=== PATIENT | male | born 1975 | race Native Hawaiian/Other Pacific Islander ===

== ENCOUNTER 2017-06-09 21:36 | Inpatient (IN) | payer BC ==
[2017-06-09] MEDS ORDERED: SODIUM CHLORIDE 0.9% 1,000 ML IV STA (22:03)
[2017-06-09] MEDS ORDERED: ONDANSETRON 4 MG/2 ML VIAL IVP STA (22:03)
[2017-06-09] MEDS ORDERED: ACETAMINOPHEN TAB 500 MG TAB PO STA (22:03)
[2017-06-09] MEDS ORDERED: MORPHINE SULFATE 4 MG/ML SYRINGE IV STA (22:03)
[2017-06-09] MEDS ORDERED: MORPHINE SULFATE/PF 10MG/10ML VL IVP STA (22:09)
--- NOTE | 2017-06-09 22:17 | ED ---
General Adult HPI <Matthieu Woo - Last Filed: 06/10/17 00:27> - General Source: patient, RN notes reviewed Mode of arrival: wheelchair Limitations: no limitations <Juanita Reyes - Last Filed: 06/10/17 00:30> - General Chief complaint: Abdominal Pain Stated complaint: Abd pain Time Seen by Provider: 06/09/17 21:47 - History of Present Illness Initial comments: 41-year-old male presents to the emergency department with a chief complaint of abdominal pain. This pain started about a week ago. He is scheduled to have an ultrasound done today. He went for ultrasound. He went home he developed low fever his abdominal pain seemed to have worsened. He denies any nausea or vomiting. He denies any changes in bowel or bladder habits. He denies any surgeries on the abdomen the past. They state they're concerned due to the fever and the worsening abdominal pain so they thought that they should be seen. Patient denies any recent shortness of breath, chest pain, back pain, nausea vomiting, numbness or tingling, dysuria or hematuria, constipation or diarrhea, headaches or visual changes, or any other current symptoms. (Juanita Reyes) - Related Data Home Medications Medication Instructions Recorded Confirmed Ibuprofen [Motrin] 800 mg PO Q8H PRN 06/09/17 06/09/17 Allergies Allergy/AdvReac Type Severity Reaction Status Date / Time No Known Allergies Allergy Verified 06/09/17 21:52 Review of Systems ROS Other: All systems not noted in ROS Statement are negative. <Matthieu Woo - Last Filed: 06/10/17 00:27> ROS Other: All systems not noted in ROS Statement are negative. <Juanita Reyes - Last Filed: 06/10/17 00:30> ROS Statement: Those systems with pertinent positive or pertinent negative responses have been documented in the HPI. Past Medical History Past Medical History: No Reported History History of Any Multi-Drug Resistant Organisms: None Reported Past Surgical History: No Surgical Hx Reported Past Psychological History: No Psychological Hx Reported Smoking Status: Current every day smoker Past Alcohol Use History: Occasional Past Drug Use History: None Reported <Juanita Reyes - Last Filed: 06/10/17 00:30> General Exam <Matthieu Woo - Last Filed: 06/10/17 00:27> Limitations: no limitations <Juanita Reyes - Last Filed: 06/10/17 00:30> - General Exam Comments Initial Comments: General: The patient is awake and alert, in no distress, and does not appear acutely ill. Eye: Pupils are equal, round and reactive to light, extra-ocular movements are intact; there is normal conjunctiva bilaterally. No signs of icterus. Ears, nose, mouth and throat: There are moist mucous membranes and no oral lesions. Neck: The neck is supple, there is no tenderness. Cardiovascular: There is a regular rate and rhythm. No murmur, rub or gallop is appreciated. Respiratory: Lungs are clear to auscultation, respirations are non-labored, breath sounds are equal. No wheezes, stridor, rales, or rhonchi. Gastrointestinal: Soft, non-distended, right upper quadrant tenderness with some diffuse tenderness of the abdomen without masses or organomegaly noted. There is no rebound or guarding present. No CVA tenderness. Bowel sounds are unremarkable. Back: There is no tenderness to palpation in the midline. There is no obvious deformity. No rashes noted. Musculoskeletal: Normal ROM, notenderness, There is no pedal edema. There is no calf tenderness or swelling. Sensation intact. Pulses equal bilaterally 2+. Neurological: CN II-XII intact, There are no obvious motor or sensory deficits. Coordination appears grossly intact. Speech is normal. Skin: Skin is warm and dry and no rashes or lesions are noted. Psychiatric: Cooperative, appropriate mood & affect, normal judgment. (Juanita Reyes) Course <Matthieu Woo - Last Filed: 06/10/17 00:27> <Juanita Reyes - Last Filed: 06/10/17 00:30> Vital Signs 06/09/17 06/10/17 21:42 00:01 Temperature 100.6 F H 100.3 F H Pulse Rate 113 H 111 H Respiratory 20 18 Rate Blood Pressure 196/83 121/59 O2 Sat by Pulse 98 97 Oximetry - Reevaluation(s) Reevaluation #1: 06/10/17 00:29 At this time patient does meet sepsis criteria. (Juanita Reyes) Medical Decision Making - Lab Data Result diagrams: 06/09/17 22:23 06/09/17 22:23 <AmnaMatthieu Darcie - Last Filed: 06/10/17 00:27> - Lab Data Result diagrams: 06/09/17 22:23 06/09/17 22:23 <Juanita Reyes - Last Filed: 06/10/17 00:30> - Medical Decision Making 41-year-old male with generalized abdominal pain, with tenderness to palpation. Patient is febrile and tachycardic on initial evaluation. CT is obtained, official read pending, however radiologist did call with pelvic abscess, likely from diverticulitis, with intraperitoneal free air. This is discussed with Dr. Kurtz, patient will be placed on IV antibiotics, admitted for further evaluation treatment. (Matthieu Woo) 41-year-old male presents for abdominal pain. This time patient's CAT scan and lab work has been reviewed. At this time we do appear to have an diverticulitis with abscess and concern for perforation. At this time Zosyn was started. This time we will admit to Dr. Kurtz who will evaluate the patient. (Juanita Reyes) - Lab Data Lab Results 06/09/17 06/09/17 06/09/17 Range/Units 22:23 22:23 22:23 WBC 5.8 (3.8-10.6) k/uL RBC 5.12 (4.30-5.90) m/uL Hgb 15.7 (13.0-17.5) gm/dL Hct 43.5 (39.0-53.0) % MCV 84.9 (80.0-100.0) fL MCH 30.6 (25.0-35.0) pg MCHC 36.1 (31.0-37.0) g/dL RDW 13.0 (11.5-15.5) % Plt Count 251 (150-450) k/uL Neutrophils % 82 % Lymphocytes % 11 % Monocytes % 5 % Eosinophils % 1 % Basophils % 0 % Neutrophils # 4.7 (1.3-7.7) k/uL Lymphocytes # 0.6 L (1.0-4.8) k/uL Monocytes # 0.3 (0-1.0) k/uL Eosinophils # 0.1 (0-0.7) k/uL Basophils # 0.0 (0-0.2) k/uL Hyperchromasia Slight Poikilocytosis Slight PT (9.0-12.0) sec INR (<1.2) APTT (22.0-30.0) sec Sodium 149 H (137-145) mmol/L Potassium 3.9 (3.5-5.1) mmol/L Chloride 103 (98-107) mmol/L Carbon Dioxide 23 (22-30) mmol/L Anion Gap 23 mmol/L BUN 16 (9-20) mg/dL Creatinine 0.80 (0.66-1.25) mg/dL Est GFR (CKD-EPI)AfAm >90 (>60 ml/min/1.73 sqM) Est GFR (CKD-EPI)NonAf >90 (>60 ml/min/1.73 sqM) Glucose 171 H (74-99) mg/dL Plasma Lactic Acid Jomar (0.7-2.0) mmol/L Calcium 8.7 (8.4-10.2) mg/dL Total Bilirubin 1.0 (0.2-1.3) mg/dL AST 24 (17-59) U/L ALT 29 (21-72) U/L Alkaline Phosphatase 77 (38-126) U/L Total Protein 6.5 (6.3-8.2) g/dL Albumin 3.4 L (3.5-5.0) g/dL Amylase 30 (30-110) U/L Lipase 39 (23-300) U/L Blood Type B Negative Blood Type Confirm Blood Type Recheck CABO Indicated Antibody Screen NEGATIVE Spec Expiration Date 06/12/2017232206/09/17 06/09/17 06/09/17 Range/Units 22:23 22:23 23:32 WBC (3.8-10.6) k/uL RBC (4.30-5.90) m/uL Hgb (13.0-17.5) gm/dL Hct (39.0-53.0) % MCV (80.0-100.0) fL MCH (25.0-35.0) pg MCHC (31.0-37.0) g/dL RDW (11.5-15.5) % Plt Count (150-450) k/uL Neutrophils % % Lymphocytes % % Monocytes % % Eosinophils % % Basophils % % Neutrophils # (1.3-7.7) k/uL Lymphocytes # (1.0-4.8) k/uL Monocytes # (0-1.0) k/uL Eosinophils # (0-0.7) k/uL Basophils # (0-0.2) k/uL Hyperchromasia Poikilocytosis PT 10.8 (9.0-12.0) sec INR 1.1 (<1.2) APTT 25.4 (22.0-30.0) sec Sodium (137-145) mmol/L Potassium (3.5-5.1) mmol/L Chloride (98-107) mmol/L Carbon Dioxide (22-30) mmol/L Anion Gap mmol/L BUN (9-20) mg/dL Creatinine (0.66-1.25) mg/dL Est GFR (CKD-EPI)AfAm (>60 ml/min/1.73 sqM) Est GFR (CKD-EPI)NonAf (>60 ml/min/1.73 sqM) Glucose (74-99) mg/dL Plasma Lactic Acid Jomar 1.9 (0.7-2.0) mmol/L Calcium (8.4-10.2) mg/dL Total Bilirubin (0.2-1.3) mg/dL AST (17-59) U/L ALT (21-72) U/L Alkaline Phosphatase (38-126) U/L Total Protein (6.3-8.2) g/dL Albumin (3.5-5.0) g/dL Amylase (30-110) U/L Lipase (23-300) U/L Blood Type Blood Type Confirm B Negative Blood Type Recheck Antibody Screen Spec Expiration Date Disposition <Matthieu Woo - Last Filed: 06/10/17 00:27> Decision Date: 06/10/17 Decision Time: 00:30 <Juanita Reyes - Last Filed: 06/10/17 00:30> Clinical Impression: Diverticular disease of intestine with perforation and abscess Disposition: ADMITTED IP TO THIS [facility] Condition: Stable Referrals: Isac Gong MD [Primary Care Provider] - 1-2 days
[2017-06-09 22:41] LABS: Basophils % (A) 0 %; Eosinophils # (A) 0.1 k/uL (0-0.7); Eosinophils % (A) 1 %; HCT 43.5 % (39.0-53.0); HGB 15.7 gm/dL (13.0-17.5); Hyperchromasia Slight; Lymphocytes # (A) 0.6 k/uL (1.0-4.8); Lymphocytes % (A) 11 %; MCH 30.6 pg (25.0-35.0); MCHC 36.1 g/dL (31.0-37.0); MCV 84.9 fL (80.0-100.0); Mean Platelet Volume 7.6; Monocytes # (A) 0.3 k/uL (0-1.0); Monocytes % (A) 5 %; Neutrophils # (A) 4.7 k/uL (1.3-7.7); Neutrophils % (A) 82 %; Platelet Count 251 k/uL (150-450); Poikilocytosis Slight; RBC 5.12 m/uL (4.30-5.90); WBC 5.8 k/uL (3.8-10.6)
[2017-06-09 22:50] LABS: ALT 29 U/L (21-72); AST 24 U/L (17-59); Albumin 3.4 g/dL (3.5-5.0); Alkaline Phosphatase 77 U/L (38-126); Amylase 30 U/L (30-110); Anion Gap 23 mmol/L; Blood Urea Nitrogen 16 mg/dL (9-20); Calcium 8.7 mg/dL (8.4-10.2); Carbon Dioxide 23 mmol/L (22-30); Chloride 103 mmol/L (98-107); Glucose 171 mg/dL (74-99); INR 1.1 (<1.2); Lipase 39 U/L (23-300); Partial Thromboplastin Time 25.4 sec (22.0-30.0); Potassium 3.9 mmol/L (3.5-5.1); Prothrombin Time 10.8 sec (9.0-12.0); Sodium 149 mmol/L (137-145); Total Protein 6.5 g/dL (6.3-8.2)
[2017-06-09] MEDS ORDERED: RX INFO: IV CONTRAST WAS GIVEN 1 EACH MISC MISCELLANE PRN (23:14)
[2017-06-09] MEDS ORDERED: fentaNYL (PF) 50 MCG/ML 2 ML AMP IV STA (23:20)
[2017-06-10] MEDS ORDERED: PIPERACILLIN-TAZOBACTAM 3.375 GM in DEXTROSE/WATER 1 50ML.BAG IVPB STA (00:22)
[2017-06-10] MEDS ORDERED: SODIUM CHLORIDE 0.9% 1,000 ML IV STA (00:23)
[2017-06-10] MEDS ORDERED: NALOXONE 0.4 MG/ML 1 ML VIAL IV PRN (00:30)
--- NOTE | 2017-06-10 00:30 | CT ---
EXAMINATION TYPE: CT abdomen pelvis w con DATE OF EXAM: 06/10/2017 COMPARISON: NONE HISTORY: Lower abd pain, RLQ abd pain CT DLP: 2911.90 mGycm Automated exposure control for dose reduction was used. TECHNIQUE: Helical acquisition of images was performed from the lung bases through the pelvis. CONTRAST: Performed without Oral Contrast and with IV Contrast, patient injected with 100 mL of Omnipaque 300. FINDINGS: Lung bases are clear of consolidation. There is no pleural effusion. Heart size is normal. There is n o pericardial effusion. Liver shows no focal defect. Bile ducts are not dilated. Gallbladder appears normal. There is no panc reatic mass. Spleen appears normal. There are extensive inflammatory changes in the pelvis involving the sigmoid colon with fat stranding and wall thickening. There is a small amount of free air in the upper abdomen. A portion of the appe ndix is seen and appears normal. There are some distended loops of small bowel with fluid. This is pr obably due to ileus. These loops measure up to 3.5 cm. The bladder distends smoothly. There is a 5.5 x 2.5 cm complex mass in the pelvis towards the right side adjacent to the sigmoid colon consistent w ith abscess. There is no free fluid in the pelvis. The bony structures are intact. IMPRESSION: EXTENSIVE INFLAMMATORY CHANGES IN THE PELVIS WITH FAT STRANDING WALL THICKENING AND SMALL PNEUMOPERIT ONEUM. FINDINGS PROBABLY RELATE TO ACUTE DIVERTICULITIS WITH PERFORATION. THERE IS A 5.5 X 2.5 CM IRR EGULAR AIR AND FLUID COLLECTION IN THE MID PELVIS TO THE RIGHT OF THE SIGMOID COLON PROBABLY A PERIDI VERTICULAR ABSCESS. Other etiologies such as granulomatous colitis with perforation or other infectio us colitis with perforation are possible. There is mildly dilated fluid-filled small bowel probably secondarily partially obstructed due to the inflammatory changes in the pelvis. This exam was discussed with ER RAMA Grant at 12:20 AM.
[2017-06-10] MEDS: SODIUM CHLORIDE 0.9% 1,000 ML IV SCH ×4 (00:33→22:15)
[2017-06-10] MEDS: MORPHINE SULFATE/PF 10MG/10ML VL IV PRN ×5 (04:18→22:24)
[2017-06-10] MEDS: ACETAMINOPHEN IV (For NPO) 1,000 MG in EMPTY BAG 1 BAG IVPB SCH ×4 (07:17→23:36)
[2017-06-10] MEDS: PIPERACILLIN-TAZOBACTAM 3.375 GM in DEXTROSE/WATER 1 50ML.BAG IVPB SCH ×3 (08:08→23:37)
[2017-06-10] MEDS ORDERED: KETOROLAC 30 MG/ML 1 ML VIAL IVP SCH (12:00)
--- NOTE | 2017-06-10 14:04 | P.GSHP ---
History of Present Illness H&P Date: 06/10/17 41-year-old male presents to the emergency department with complaints of lower abdominal pain for approximately 33 months. He states it was on and off at the beginning of this process and would be bandlike in nature in his lower quadrant. He states that he was evaluated by his primary care physician and an ultrasound of his abdomen was performed. There was no significant finding at that time. He states that he has tried pain medication with no success. He has not been on any antibiotic regimen. On presentation to the emergency department he complained of lower abdominal pain and had tachycardia at that time. CT of the abdomen and pelvis illustrated an inflamed sigmoid colon with a likely peridiverticular abscess. This was measured at 5.5 cm. After fluid resuscitation and some antibiotic administration his tachycardia improved. The patient still complains of lower abdominal pain. He denies any fevers, chills, chest pain or shortness of breath. He has never had a colonoscopy. - Review of Systems All systems: negative Past Medical History Past Medical History: No Reported History History of Any Multi-Drug Resistant Organisms: None Reported Past Surgical History: No Surgical Hx Reported Past Psychological History: No Psychological Hx Reported Smoking Status: Current every day smoker Past Alcohol Use History: Occasional Past Drug Use History: None Reported Medications and Allergies Home Medications Medication Instructions Recorded Confirmed Type Ibuprofen [Motrin] 800 mg PO Q8H PRN 06/09/17 06/09/17 History Allergies Allergy/AdvReac Type Severity Reaction Status Date / Time No Known Allergies Allergy Verified 06/09/17 21:52 Surgical - Exam Osteopathic Statement: *. No significant issues noted on an osteopathic structural exam other than those noted in the History and Physical/Consult. Vital Signs Temp Pulse Resp BP Pulse Ox 100.6 F H 113 H 20 196/83 98 06/09/17 21:42 06/09/17 21:42 06/09/17 21:42 06/09/17 21:42 06/09/17 21:42 - General well developed, well nourished, no distress - Eyes PERRL - Respiratory No difficulty with respiration - Abdomen Soft, tender to palpation in the left lower quadrant and suprapubic area, nondistended, no rebound, no guarding - Neurologic normal sensation - Psychiatric oriented to time, oriented to person, oriented to place, speech is normal Results - Labs 06/09/17 22:23 06/09/17 22:23 Abnormal Lab Results - Last 24 Hours (Table) 06/09/17 06/09/17 Range/Units 22:23 22:23 Lymphocytes # 0.6 L (1.0-4.8) k/uL Sodium 149 H (137-145) mmol/L Glucose 171 H (74-99) mg/dL Albumin 3.4 L (3.5-5.0) g/dL Diabetes panel 06/09/17 Range/Units 22:23 Sodium 149 H (137-145) mmol/L Potassium 3.9 (3.5-5.1) mmol/L Chloride 103 (98-107) mmol/L Carbon Dioxide 23 (22-30) mmol/L BUN 16 (9-20) mg/dL Creatinine 0.80 (0.66-1.25) mg/dL Glucose 171 H (74-99) mg/dL Calcium 8.7 (8.4-10.2) mg/dL AST 24 (17-59) U/L ALT 29 (21-72) U/L Alkaline Phosphatase 77 (38-126) U/L Total Protein 6.5 (6.3-8.2) g/dL Albumin 3.4 L (3.5-5.0) g/dL Calcium panel 06/09/17 Range/Units 22:23 Calcium 8.7 (8.4-10.2) mg/dL Albumin 3.4 L (3.5-5.0) g/dL Pituitary panel 06/09/17 Range/Units 22:23 Sodium 149 H (137-145) mmol/L Potassium 3.9 (3.5-5.1) mmol/L Chloride 103 (98-107) mmol/L Carbon Dioxide 23 (22-30) mmol/L BUN 16 (9-20) mg/dL Creatinine 0.80 (0.66-1.25) mg/dL Glucose 171 H (74-99) mg/dL Calcium 8.7 (8.4-10.2) mg/dL Adrenal panel 06/09/17 Range/Units 22:23 Sodium 149 H (137-145) mmol/L Potassium 3.9 (3.5-5.1) mmol/L Chloride 103 (98-107) mmol/L Carbon Dioxide 23 (22-30) mmol/L BUN 16 (9-20) mg/dL Creatinine 0.80 (0.66-1.25) mg/dL Glucose 171 H (74-99) mg/dL Calcium 8.7 (8.4-10.2) mg/dL Total Bilirubin 1.0 (0.2-1.3) mg/dL AST 24 (17-59) U/L ALT 29 (21-72) U/L Alkaline Phosphatase 77 (38-126) U/L Total Protein 6.5 (6.3-8.2) g/dL Albumin 3.4 L (3.5-5.0) g/dL - Imaging CT scan - abdomen: report reviewed, image reviewed (I did review the CT abdomen and pelvis. There is some scattered specks of pneumoperitoneum with inflammatory changes in the pelvis. There is an abscess noted in the pelvis.) CT scan - pelvis: report reviewed, image reviewed Assessment and Plan (1) Diverticular disease of intestine with perforation and abscess Narrative/Plan: 41-year-old male with diverticulitis and abscess formation - I discussed this case in depth with the interventional radiologist. Due to the patient's age of 41 and a diverticular abscess with no leukocytosis at this time, we will plan for a interventional radiology drainage of the abscess and continue to observe the patient with antibiotics. This will provide the patient the opportunity to avoid an ostomy creation if successful. If this is not successful, we will plan for surgical intervention with a colectomy and end colostomy. - Continue antibiotics, will consult infectious disease - Keep nothing by mouth at this time for interventional radiology procedure - Further recommendations to follow Current Visit: Yes Status: Acute Code(s): K57.80 - DVTRCLI OF INTEST, PART UNSP, W PERF AND ABSCESS W/O BLEED SNOMED Code(s): 338986208
[2017-06-10] MEDS ORDERED: MORPHINE SULFATE/PF 10MG/10ML VL IVP STA (14:12)
[2017-06-10] MEDS ORDERED: MORPHINE SULFATE 4 MG/ML SYRINGE IVP STA (14:18)
--- NOTE | 2017-06-10 15:36 | CT ---
EXAMINATION TYPE: CT guided abscess drainage DATE OF EXAM: 06/10/2017 HISTORY: Pelvic abscess COMPARISON: NONE PROCEDURE: Maximal barrier technique was utilized. The skin over suitable path to the abscess was localized wit h CT and the overlying skin prepped and draped. Lidocaine was used for local anesthesia. A skin tonia k made with a scalpel. Access was gained using CT guidance with a 21-gauge needle, purulent material returned in the hub of the needle. A 0.018 inch wire was advanced and the access site was upsized, the wire was upsized and subsequently an 6.5-Pashto drain was deployed within the abscess cavity and fixed in place. Catheter attached to gravity drainage. No immediate complication. Purulent materia l sent for laboratory analysis and draining into the bag. The patient remained in stable condition. IMPRESSION: STATUS POST CT GUIDED ABSCESS DRAINAGE, MICROBIOLOGY ANALYSIS IS PENDING. THIS PROCEDURE WAS PERFORM ED BY THE UNDERSIGNED.
[2017-06-11] MEDS ORDERED: KETOROLAC 30 MG/ML 1 ML VIAL IVP STA ×2 (02:44→22:18)
[2017-06-11] MEDS: SODIUM CHLORIDE 0.9% 1,000 ML IV SCH ×3 (03:54→21:10)
[2017-06-11] MEDS: MORPHINE SULFATE/PF 10MG/10ML VL IV PRN ×4 (07:10→22:35)
[2017-06-11 07:35] LABS: Basophils % (A) 0 %; Eosinophils # (A) 0.1 k/uL (0-0.7); Eosinophils % (A) 1 %; HCT 41.2 % (39.0-53.0); HGB 13.6 gm/dL (13.0-17.5); Lymphocytes # (A) 1.3 k/uL (1.0-4.8); Lymphocytes % (A) 9 %; MCHC 33.1 g/dL (31.0-37.0); MCV 87.6 fL (80.0-100.0); Mean Platelet Volume 7.4; Monocytes # (A) 0.5 k/uL (0-1.0); Monocytes % (A) 4 %; Neutrophils # (A) 13.1 k/uL (1.3-7.7); Neutrophils % (A) 86 %; Platelet Count 263 k/uL (150-450); Poikilocytosis Slight; RDW 13.3 % (11.5-15.5); WBC 15.2 k/uL (3.8-10.6)
[2017-06-11 08:22] LABS: ALT 35 U/L (21-72); AST 16 U/L (17-59); Albumin 2.8 g/dL (3.5-5.0); Alkaline Phosphatase 76 U/L (38-126); Anion Gap 11 mmol/L; Blood Urea Nitrogen 17 mg/dL (9-20); Calcium 7.9 mg/dL (8.4-10.2); Carbon Dioxide 25 mmol/L (22-30); Chloride 105 mmol/L (98-107); Glucose 83 mg/dL (74-99); Sodium 141 mmol/L (137-145); Total Bilirubin 1.1 mg/dL (0.2-1.3); Total Protein 5.6 g/dL (6.3-8.2)
[2017-06-11] MEDS: PIPERACILLIN-TAZOBACTAM 3.375 GM in DEXTROSE/WATER 1 50ML.BAG IVPB SCH ×2 (08:58→16:36)
[2017-06-11] MEDS: HYDROcodone/APAP 5-325MG 1 EACH TAB PO PRN ×2 (14:46→21:05)
[2017-06-11] MEDS ORDERED: MORPHINE ORAL SOLN 10 MG/5 ML CUP PO PRN (14:46)
--- NOTE | 2017-06-11 15:05 | P.PN ---
Subjective Progress Note Date: 06/11/17 Patient seen and examined at bedside. The patient did have an IR drain placed into his pelvic abscess yesterday. He states that he felt immediate relief once this was placed. There continues to be coffman output from this drain. The patient states his pain is improving. He has had bowel function today that was liquid in nature. He did have a febrile episode overnight that has been resolved. Objective - Vital Signs Vital signs: Vital Signs Temp 98.6 F 06/11/17 14:39 Pulse 102 H 06/11/17 14:39 Resp 16 06/11/17 14:39 BP 129/74 06/11/17 14:39 Pulse Ox 96 06/11/17 14:39 Intake & Output 06/10/17 06/11/17 06/11/17 18:59 06:59 18:59 Intake Total 2316 Balance 2316 Intake: Intake, IV Titration 1726 Amount ACETAMINOPHEN IV (For NPO 100 ) 1,000 mg In Empty Bag 1 bag @ 400 mls/hr IVPB Q6HR [facility] Rx#:[id number] Piperacillin-Tazobactam 3 50 .375 gm In Dextrose/Water 1 50ml.bag @ 12.5 mls/hr IVPB Q8HR [facility] Rx#: [id number] Sodium Chloride 0.9% 1, 1576 000 ml @ 150 mls/hr IV . Q6H40M [facility] Rx#:[id number] Oral 590 Other: Voiding Method Toilet # Voids 1 3 3 # Bowel Movements 1 - Constitutional General appearance: Present: cooperative, no acute distress - EENT ENT: Present: hearing grossly normal - Respiratory Details: No difficulty with respiration - Gastrointestinal Gastrointestinal Comment(s): Soft, mild tenderness in the right lower quadrant and suprapubic area improved from yesterday, nondistended, no rebound, no guarding - Psychiatric Psychiatric: Present: A&O x's 3 - Labs CBC & Chem 7: 06/11/17 06:55 06/11/17 06:55 Labs: Abnormal Lab Results - Last 24 Hours (Table) 06/11/17 06/11/17 Range/Units 06:55 06:55 WBC 15.2 H (3.8-10.6) k/uL Neutrophils # 13.1 H (1.3-7.7) k/uL Calcium 7.9 L (8.4-10.2) mg/dL AST 16 L (17-59) U/L Total Protein 5.6 L (6.3-8.2) g/dL Albumin 2.8 L (3.5-5.0) g/dL Microbiology - Last 24 Hours (Table) 06/10/17 14:10 Gram Stain - Preliminary Aspirate Body Fluid Culture - Preliminary 06/10/17 14:10 Anaerobic Culture - Preliminary Aspirate 06/09/17 22:23 Blood Culture - Preliminary Blood No Growth after 24 hours Assessment and Plan (1) Diverticular disease of intestine with perforation and abscess Narrative/Plan: 41-year-old male with diverticulitis and abscess formation - IR drain was successful, there is continued purulent drainage - Pain improved - Continue antibiotics, appreciate infectious disease recommendations - Continue clear liquid diet Current Visit: Yes Status: Acute Code(s): K57.80 - DVTRCLI OF INTEST, PART UNSP, W PERF AND ABSCESS W/O BLEED SNOMED Code(s): 354190230
--- NOTE | 2017-06-11 17:18 | CONS ---
CONSULTATION DATE OF SERVICE: 06/11/2017. REASON FOR CONSULTATION: A pelvic abscess, likely from ruptured appendicitis. HISTORY OF PRESENT ILLNESS: The patient is a 41-year-old, male, presenting to the [facility] ER on 06/09/2017 with chief complaints of acute exacerbation of his chronic abdominal pain. The patient says he has left lower abdominal pain off and on for a couple of months now. The patient is able to have pain for a day and then will go away and will not come back until after a few weeks or so with no clear initiating or exacerbating factor. However over the last few days, the patient is still having more pain in the left abdominal area. Pain described to be sharp at times: Almost 7 to 8/10, and no radiation. The patient felt nauseated but no vomiting. With these symptoms, the patient did follow up with his primary care physician who ordered an ultrasound which was completed on the day of his admission. However, he was able to get the report of his ultrasound. By the evening, his pain was getting severe that he ended up presenting to the [facility] ER. The patient was evaluated by the ER physician. Patient did have a CT of the pelvic area which shows extensive inflammatory changes with fat stranding of wall thickening and small pneumoperitoneum finding probably related to the acute diverticulitis with perforation with a 5.5 x 2.5 cm abscess. The patient did have a CT-guided drainage of this abscess done. Cultures currently pending. He was started on Zosyn and admitted to the hospital. Infectious disease was consulted for further recommendations of antibiotic therapy. The patient did have a fever of 100.6 on presentation, subsequently did spike a fever of 103 Fahrenheit on this morning. Currently at 98.6. The patient did have evidence of tachycardia, heart rate between 102-104. However, his blood pressure has been stable. The patient did have a white count of 15.2. The patient with no other medical problems. REVIEW OF SYSTEMS: Constitutional: Positive for weakness along with the fever. Eyes: No complaint. ENT no complaint. Respiratory no complaint. Cardiovascular no complaint. Genitourinary no complaint. Gastrointestinal: As per HPI. Musculoskeletal no complaint. Integumentary: No complaint. Psychological: No complaint. Endocrine: No complaint. Neurologic: No complaint. PAST MEDICAL HISTORY: He did have left wrist fracture when he was . PAST SURGICAL HISTORY: No major surgeries. SOCIAL HISTORY: Current everyday smoker. Occasionally drinks. No drug use. FAMILY HISTORY: No pertinent findings noticed. ALLERGIES: No known drug allergies. MEDICATION: Medications include the patient is currently on Zosyn 3.375 g IV piggyback q.8 hours, he is on Zofran, Narcan, morphine sulfate, [place]. EXAMINATION: Blood pressure is 129/74 with a pulse of 102, temperature 98.6, T-max is 101.6. He is 96% on room air. General description is a middle-aged male lying in bed in no distress. No tachypnea or accessory muscles of respiration use. HEENT: Shows no pallor or scleral icterus. Oral mucosal membranes are moist. No significant erythema or thrush. Neck trachea central. No thyromegaly. Lungs unlabored breathing. Clear to auscultation anteriorly. No wheeze or crackles. Heart S1, S2. Regular rate and rhythm. Abdomen soft. Slightly distended. Mild tender in the left lower quadrant area. There is no guarding. No rigidity. No organomegaly. EXTREMITIES: No edema of the feet. Skin examination: No rash or mass palpable. Neurological: Patient is awake, alert, and oriented times three. Mood and affect normal. LABS: Hemoglobin is 13.6, white count 15.2 with a BUN of 17, creatinine 1.0. Electrolytes have been normal, liver enzymes are normal. Blood and the pelvic fluid cultures currently pending. DIAGNOSTIC IMPRESSION AND PLAN: Patient with sepsis in a patient admitted to the hospital with significant abdominal pain that has been chronic for him, however, recently getting worse. The patient did have a fever of 101 degrees Fahrenheit, did have tachycardia, heart rate 102 to 108 along with elevated white count of 15,000, meeting criteria for systemic inflammatory response syndrome/sepsis, source is the pelvic abscess, likely from a ruptured diverticulitis. The likely organism to cover will be the enteric gram-negative both aerobes and anaerobes. PLAN: 1. Zosyn 3.375 g IV piggyback q.8 hours will be quite adequate coverage for underlying pathogen associated with acute diverticulitis. 2. Recommend keeping the patient IV antibiotic for another 24 to 48 hours depending upon the culture report and in view of this extensive inflammation, he may benefit from PICC line IV antibiotic therapy in the outpatient setting for at at least 2 weeks with a chose of antibiotic depending upon the culture report. Thank you for this consultation. Will follow the patient along with you. MMODL / IJN: [id number] /
[2017-06-12] MEDS: PIPERACILLIN-TAZOBACTAM 3.375 GM in DEXTROSE/WATER 1 50ML.BAG IVPB SCH ×3 (00:24→16:44)
[2017-06-12] MEDS: HYDROcodone/APAP 5-325MG 1 EACH TAB PO PRN ×3 (05:03→21:06)
[2017-06-12] MEDS: SODIUM CHLORIDE 0.9% 1,000 ML IV SCH ×3 (06:02→14:19)
[2017-06-12 06:52] LABS: Basophils % (A) 0 %; Eosinophils # (A) 0.1 k/uL (0-0.7); Eosinophils % (A) 1 %; HCT 38.2 % (39.0-53.0); HGB 13.1 gm/dL (13.0-17.5); Lymphocytes # (A) 0.9 k/uL (1.0-4.8); Lymphocytes % (A) 6 %; MCH 29.8 pg (25.0-35.0); MCHC 34.4 g/dL (31.0-37.0); MCV 86.5 fL (80.0-100.0); Mean Platelet Volume 7.7; Monocytes # (A) 0.5 k/uL (0-1.0); Monocytes % (A) 3 %; Neutrophils # (A) 13.8 k/uL (1.3-7.7); Neutrophils % (A) 90 %; Platelet Count 272 k/uL (150-450); Poikilocytosis Slight; RBC 4.41 m/uL (4.30-5.90); RDW 13.4 % (11.5-15.5); WBC 15.3 k/uL (3.8-10.6)
[2017-06-12 07:08] LABS: Anion Gap 8 mmol/L; Blood Urea Nitrogen 15 mg/dL (9-20); Calcium 7.9 mg/dL (8.4-10.2); Carbon Dioxide 23 mmol/L (22-30); Chloride 107 mmol/L (98-107); Glucose 101 mg/dL (74-99); Potassium 3.9 mmol/L (3.5-5.1); Sodium 138 mmol/L (137-145)
--- NOTE | 2017-06-12 12:27 | P.PN ---
Subjective Progress Note Date: 06/12/17 Patient seen and examined at bedside. He states he has had 2 bowel movements and since then his abdominal pain has improved tremendously. He did have an episode of fever overnight that was broken with Toradol. He states that he has not had pain medication since 5 AM and is not anticipating and taking any anytime soon. He denies any nausea and vomiting. IR drain is in place with continued output of 15 mL on the overnight shift. Objective - Vital Signs Vital signs: Vital Signs Temp 99.8 F H 06/12/17 07:00 Pulse 100 06/12/17 07:00 Resp 14 06/12/17 07:00 BP 121/76 06/12/17 07:00 Pulse Ox 95 06/12/17 07:00 Intake & Output 06/11/17 06/12/17 06/12/17 18:59 06:59 18:59 Intake Total 4393 Output Total 50 12 Balance -50 4381 Intake: Intake, IV Titration 2793 Amount Piperacillin-Tazobactam 3 50 .375 gm In Dextrose/Water 1 50ml.bag @ 12.5 mls/hr IVPB Q8HR [facility] Rx#: [id number] Sodium Chloride 0.9% 1, 2743 000 ml @ 150 mls/hr IV . Q6H40M [facility] Rx#:[id number] Oral 1600 Output: Drainage 50 12 Right Abdomen 50 12 Other: Voiding Method Toilet # Voids 3 2 # Bowel Movements 1 - Constitutional General appearance: Present: cooperative, no acute distress - EENT ENT: Present: hearing grossly normal - Respiratory Details: No difficulty with respiration - Gastrointestinal Gastrointestinal Comment(s): Soft, nontender, nondistended, no rebound, no guarding, IR drain is in place with continued purulent output - Psychiatric Psychiatric: Present: A&O x's 3 - Labs CBC & Chem 7: 06/12/17 06:22 06/12/17 06:22 Labs: Abnormal Lab Results - Last 24 Hours (Table) 06/12/17 06/12/17 Range/Units 06:22 06:22 WBC 15.3 H (3.8-10.6) k/uL Hct 38.2 L (39.0-53.0) % Neutrophils # 13.8 H (1.3-7.7) k/uL Lymphocytes # 0.9 L (1.0-4.8) k/uL Glucose 101 H (74-99) mg/dL Calcium 7.9 L (8.4-10.2) mg/dL Microbiology - Last 24 Hours (Table) 06/09/17 22:23 Blood Culture - Preliminary Blood No Growth after 48 hours 06/10/17 14:10 Gram Stain - Preliminary Aspirate Body Fluid Culture - Preliminary Gram Neg Bacilli Beta Hemolytic Streptococcus F Assessment and Plan (1) Diverticular disease of intestine with perforation and abscess Narrative/Plan: 41-year-old male with diverticulitis and abscess formation - IR drain in place, continued output - Fever overnight, currently afebrile - Pain improved after bowel function - Continue antibiotics, appreciate infectious disease recommendations - Continue clear liquid diet - I did discuss this case in depth with the patient. He has had febrile episodes over the past 2 days and continues to have leukocytosis. His pain is improving, however he continues to put out purulent material from his drain. If he continues to have febrile episodes and persistent leukocytosis, there is a possibility of performing an exploratory lap with possible bowel resection and washout of this abscess. The patient understands this and is agreeable to this plan. We will observe him for 24 hours with antibiotics and continued IR drain to suction. We will keep him nothing by mouth after midnight. Current Visit: Yes Status: Acute Code(s): K57.80 - DVTRCLI OF INTEST, PART UNSP, W PERF AND ABSCESS W/O BLEED SNOMED Code(s): 648472506
--- NOTE | 2017-06-12 13:10 | PN ---
PROGRESS NOTE DATE OF SERVICE: 06/12/2017. REASON FOR FOLLOW UP: Pelvic abscess from ruptured diverticulitis. INTERVAL HISTORY: The patient is afebrile. He did mention this morning his pain has improved. The patient denies having any nausea, vomiting. Denies any chest pain, shortness of breath or cough. EXAMINATION: Blood pressure is 120/76, pulse of 100, temperature of 99. He is 95% on room air. General description is a middle-aged male lying in bed in no distress. Respiratory system: Unlabored breathing, clear to auscultation anteriorly. Heart S1, S2. Regular rate and rhythm. ABDOMEN: Soft. No distention or guarding or rigidity. Extremities: No edema of the feet. LABS: Hemoglobin 13.1, white count 15.3 with a BUN of 15, creatinine 0.94. The abdominal culture with a hemolytic beta hemolytic Streptococcus. DIAGNOSTIC IMPRESSION AND PLAN: Patient with pelvic abscess from ruptured diverticulitis. The patient at this time will continue on Zosyn. He will likely need a PICC line for outpatient IV antibiotic therapy. We will fill order for tomorrow. Discharge antibiotic will depend on culture report. Continue supportive care. MMODL / IJN: [id number] /
[2017-06-12] MEDS ORDERED: KETOROLAC 30 MG/ML 1 ML VIAL IVP STA (14:17)
[2017-06-13] MEDS: PIPERACILLIN-TAZOBACTAM 3.375 GM in DEXTROSE/WATER 1 50ML.BAG IVPB SCH ×4 (05:22→23:45)
[2017-06-13] MEDS: MORPHINE SULFATE/PF 10MG/10ML VL IV PRN (05:30)
[2017-06-13 06:56] LABS: Basophils % (A) 0 %; Eosinophils # (A) 0.1 k/uL (0-0.7); Eosinophils % (A) 1 %; HCT 35.8 % (39.0-53.0); HGB 12.2 gm/dL (13.0-17.5); Lymphocytes % (A) 8 %; MCH 29.3 pg (25.0-35.0); MCHC 34.1 g/dL (31.0-37.0); MCV 85.8 fL (80.0-100.0); Mean Platelet Volume 7.2; Monocytes # (A) 0.4 k/uL (0-1.0); Monocytes % (A) 3 %; Neutrophils # (A) 10.6 k/uL (1.3-7.7); Neutrophils % (A) 86 %; Platelet Count 303 k/uL (150-450); Poikilocytosis Slight; RBC 4.18 m/uL (4.30-5.90); RDW 13.2 % (11.5-15.5); WBC 12.3 k/uL (3.8-10.6)
[2017-06-13 07:13] LABS: Anion Gap 9 mmol/L; Blood Urea Nitrogen 12 mg/dL (9-20); Calcium 7.9 mg/dL (8.4-10.2); Carbon Dioxide 23 mmol/L (22-30); Chloride 109 mmol/L (98-107); Glucose 99 mg/dL (74-99); Potassium 4.1 mmol/L (3.5-5.1); Sodium 141 mmol/L (137-145)
[2017-06-13] MEDS: SODIUM CHLORIDE 0.9% 1,000 ML IV SCH ×3 (07:55→23:45)
[2017-06-13] MEDS: HYDROcodone/APAP 5-325MG 1 EACH TAB PO PRN ×3 (09:21→23:42)
--- NOTE | 2017-06-13 12:24 | P.PN ---
Subjective Progress Note Date: 06/13/17 Patient seen and examined at bedside. He had 1 febrile episode yesterday. He states he feels much better today. He was able to shower today. Abdominal pain is greatly improved. He denies any current feeling of fevers, chills, chest pain or shortness of breath. Denies any nausea and vomiting. Objective - Vital Signs Vital signs: Vital Signs Temp 99.2 F 06/13/17 07:49 Pulse 111 H 06/13/17 07:49 Resp 12 06/13/17 07:49 BP 157/85 06/13/17 07:49 Pulse Ox 93 L 06/13/17 07:49 Intake & Output 06/12/17 06/13/17 06/13/17 18:59 06:59 18:59 Intake Total 1400 3350 Output Total 30 5 Balance 1400 3320 -5 Intake: Intake, IV Titration 1400 2500 Amount Piperacillin-Tazobactam 3 100 .375 gm In Dextrose/Water 1 50ml.bag @ 12.5 mls/hr IVPB Q8HR [facility] Rx#: [id number] Sodium Chloride 0.9% 1, 1400 2400 000 ml @ 150 mls/hr IV . Q6H40M [facility] Rx#:[id number] Oral 850 Output: Drainage 30 5 Right Abdomen 30 5 Other: Voiding Method Toilet Toilet # Voids 2 3 # Bowel Movements 2 - Constitutional General appearance: Present: cooperative, no acute distress - Respiratory Details: No difficulty with respiration - Gastrointestinal Gastrointestinal Comment(s): Soft, very mild tenderness in the pubic area, nondistended, no rebound, no guarding - Psychiatric Psychiatric: Present: A&O x's 3, appropriate affect, intact judgment & insight - Labs CBC & Chem 7: 06/13/17 06:25 06/13/17 06:25 Labs: Abnormal Lab Results - Last 24 Hours (Table) 06/13/17 06/13/17 Range/Units 06:25 06:25 WBC 12.3 H (3.8-10.6) k/uL RBC 4.18 L (4.30-5.90) m/uL Hgb 12.2 L (13.0-17.5) gm/dL Hct 35.8 L (39.0-53.0) % Neutrophils # 10.6 H (1.3-7.7) k/uL Chloride 109 H (98-107) mmol/L Calcium 7.9 L (8.4-10.2) mg/dL Microbiology - Last 24 Hours (Table) 06/09/17 22:23 Blood Culture - Preliminary Blood No Growth after 72 hours 06/10/17 14:10 Gram Stain - Preliminary Aspirate Body Fluid Culture - Preliminary Escherichia coli Beta Hemolytic Streptococcus F Assessment and Plan (1) Diverticular disease of intestine with perforation and abscess Narrative/Plan: 41-year-old male with diverticulitis and abscess formation - IR drain in place, continued output - Fever yesterday, currently afebrile - Pain improved - Continue antibiotics, appreciate infectious disease recommendations - Restart clear liquid diet - I did discuss this case in depth with the patient. Although he has had febrile episodes, his leukocytosis has improved. The patient states that he is feeling much better and his drain does continue to have output. Due to these findings, we will not move forward with a laparotomy at this time and we will continue with antibiotic therapy and continue drain management. I discussed the case with infectious disease and we will await final cultures to decide on continued antibiotic regimen. Current Visit: Yes Status: Acute Code(s): K57.80 - DVTRCLI OF INTEST, PART UNSP, W PERF AND ABSCESS W/O BLEED SNOMED Code(s): 249156624
--- NOTE | 2017-06-13 22:05 | PN ---
PROGRESS NOTE DATE OF SERVICE: 06/13/2017 REASON FOR FOLLOWUP: Pelvic abscess from ruptured diverticulitis. INTERVAL HISTORY: The patient is afebrile. He is breathing comfortably. Abdominal pain is currently controlled. Denies having any chest pain, shortness of breath or cough. No nausea. No vomiting. PHYSICAL EXAMINATION: Blood pressure 132/78 with a pulse of 94, temperature of 99. He is 97% on room air. General description is an elderly male lying in bed in no distress. RESPIRATORY SYSTEM: Unlabored breathing. Clear to auscultation anteriorly. HEART: S1, S2. Regular rate and rhythm. ABDOMEN: Soft. No tenderness. EXTREMITIES: No edema of the feet. LABS: Hemoglobin 12.2, white count 12.3, BUN of 12, creatinine 0.89. The abdominal culture is now showing an E coli which is resistant to Unasyn, streptococcus, Lynette albicans and anaerobic Gram-negative bacilli. DIAGNOSTIC IMPRESSION AND PLAN: Patient with a pelvic abscess from ruptured diverticulitis, status post CT-guided drainage. Plan at this time is to continue with Zosyn over the weekend. We will add p.o. Flagyl and Diflucan to cover for the anaerobic Gram-negative and Lynette albicans. Continue with supportive care. MMODL / IJN: [id number] /
[2017-06-13] MEDS: metroNIDAZOLE 500 MG TAB PO SCH (23:42)
[2017-06-13] MEDS: FLUCONAZOLE 100 MG TAB PO SCH (23:42)
[2017-06-14] MEDS: MORPHINE SULFATE/PF 10MG/10ML VL IV PRN ×2 (04:00→15:37)
[2017-06-14] MEDS: HYDROcodone/APAP 5-325MG 1 EACH TAB PO PRN ×3 (06:50→19:06)
[2017-06-14 07:35] LABS: Anion Gap 13 mmol/L; Blood Urea Nitrogen 9 mg/dL (9-20); Calcium 7.8 mg/dL (8.4-10.2); Carbon Dioxide 23 mmol/L (22-30); Chloride 107 mmol/L (98-107); Glucose 98 mg/dL (74-99); Potassium 3.7 mmol/L (3.5-5.1); Sodium 143 mmol/L (137-145)
[2017-06-14 07:37] LABS: Basophils % (A) 0 %; Eosinophils # (A) 0.1 k/uL (0-0.7); Eosinophils % (A) 1 %; HCT 37.7 % (39.0-53.0); HGB 12.1 gm/dL (13.0-17.5); Lymphocytes # (A) 1.2 k/uL (1.0-4.8); Lymphocytes % (A) 7 %; MCH 28.1 pg (25.0-35.0); MCHC 32.2 g/dL (31.0-37.0); MCV 87.5 fL (80.0-100.0); Mean Platelet Volume 7.8; Monocytes # (A) 0.6 k/uL (0-1.0); Monocytes % (A) 4 %; Neutrophils # (A) 13.9 k/uL (1.3-7.7); Neutrophils % (A) 88 %; Platelet Count 351 k/uL (150-450); Poikilocytosis Slight; RDW 13.5 % (11.5-15.5); WBC 15.8 k/uL (3.8-10.6)
[2017-06-14] MEDS: PIPERACILLIN-TAZOBACTAM 3.375 GM in DEXTROSE/WATER 1 50ML.BAG IVPB SCH ×2 (08:37→15:35)
[2017-06-14] MEDS: metroNIDAZOLE 500 MG TAB PO SCH ×2 (08:38→15:35)
[2017-06-14] MEDS: FLUCONAZOLE 100 MG TAB PO SCH (08:39)
[2017-06-14] MEDS: SODIUM CHLORIDE 0.9% 1,000 ML IV SCH (12:53)
--- NOTE | 2017-06-14 13:43 | P.PN ---
Subjective Progress Note Date: 06/14/17 Principal diagnosis: Diverticular abscess The patient is status post percutaneous drainage of diverticular abscess. He's having mild pain. He is having bowel movements. No nausea or vomiting. Tolerating a diet. Objective - Vital Signs Vital signs: Vital Signs Temp 99.6 F 06/14/17 07:00 Pulse 100 06/14/17 07:00 Resp 14 06/14/17 07:00 BP 133/67 06/14/17 07:00 Pulse Ox 96 06/14/17 07:00 Intake & Output 06/13/17 06/14/17 06/14/17 18:59 06:59 18:59 Intake Total 975 540 600 Output Total 5 15 Balance 970 525 600 Weight 127.006 kg Intake: Intake, IV Titration 975 600 Amount Sodium Chloride 0.9% 1, 975 600 000 ml @ 75 mls/hr IV . [id number] [facility] Rx#:[id number] Oral 540 Output: Drainage 5 15 Right Abdomen 5 15 Other: Voiding Method Toilet Toilet # Voids 2 2 # Bowel Movements 1 - Constitutional General appearance: Present: cooperative, no acute distress - Respiratory Respiratory: bilateral: CTA - Cardiovascular Rhythm: regular - Gastrointestinal General gastrointestinal: Present: normal bowel sounds, soft, tenderness ( Around the drain) - Labs CBC & Chem 7: 06/14/17 06:50 06/14/17 06:50 Labs: Abnormal Lab Results - Last 24 Hours (Table) 06/14/17 06/14/17 Range/Units 06:50 06:50 WBC 15.8 H (3.8-10.6) k/uL Hgb 12.1 L (13.0-17.5) gm/dL Hct 37.7 L (39.0-53.0) % Neutrophils # 13.9 H (1.3-7.7) k/uL Calcium 7.8 L (8.4-10.2) mg/dL Microbiology - Last 24 Hours (Table) 06/09/17 22:23 Blood Culture - Preliminary Blood No Growth after 96 hours 06/10/17 14:10 Anaerobic Culture - Final Aspirate Anaerobic Gm Negative Bacilli 06/10/17 14:10 Gram Stain - Final Aspirate Body Fluid Culture - Final Escherichia coli Beta Hemolytic Streptococcus F Lynette albicans Assessment and Plan (1) Diverticular disease of intestine with perforation and abscess Current Visit: Yes Status: Acute Code(s): K57.80 - DVTRCLI OF INTEST, PART UNSP, W PERF AND ABSCESS W/O BLEED SNOMED Code(s): 695600596 (2) Leukocytosis Current Visit: Yes Status: Acute Code(s): D72.829 - ELEVATED WHITE BLOOD CELL COUNT, UNSPECIFIED SNOMED Code(s): 733710032 Plan: Clinically the patient is improving. He's continuing to run low-grade temperatures in the 99-100 range. White count is still slightly elevated. We' ll continue broad-spectrum antibiotics over the weekend. Possibly repeat computed tomography scan at the beginning of the week. Progressing slowly
[2017-06-15] MEDS: PIPERACILLIN-TAZOBACTAM 3.375 GM in DEXTROSE/WATER 1 50ML.BAG IVPB SCH ×3 (00:05→17:11)
[2017-06-15] MEDS: ONDANSETRON 4 MG/2 ML VIAL IVP PRN (00:05)
[2017-06-15] MEDS: metroNIDAZOLE 500 MG TAB PO SCH (00:05)
[2017-06-15] MEDS: HYDROcodone/APAP 5-325MG 1 EACH TAB PO PRN ×2 (00:08→20:13)
[2017-06-15] MEDS: MORPHINE SULFATE/PF 10MG/10ML VL IV PRN ×3 (03:26→14:06)
[2017-06-15 04:36] LABS: Basophils % (A) 0 %; Eosinophils # (A) 0.1 k/uL (0-0.7); Eosinophils % (A) 0 %; HGB 14.7 gm/dL (13.0-17.5); Lymphocytes # (A) 0.8 k/uL (1.0-4.8); Lymphocytes % (A) 4 %; MCH 29.6 pg (25.0-35.0); MCHC 34.1 g/dL (31.0-37.0); MCV 86.7 fL (80.0-100.0); Mean Platelet Volume 7.7; Monocytes # (A) 0.5 k/uL (0-1.0); Monocytes % (A) 2 %; Neutrophils # (A) 20.3 k/uL (1.3-7.7); Neutrophils % (A) 93 %; Platelet Count 384 k/uL (150-450); Poikilocytosis Slight; RBC 4.96 m/uL (4.30-5.90); RDW 13.3 % (11.5-15.5); WBC 21.9 k/uL (3.8-10.6)
[2017-06-15 04:37] LABS: Anion Gap 13 mmol/L; Blood Urea Nitrogen 10 mg/dL (9-20); Calcium 8.2 mg/dL (8.4-10.2); Carbon Dioxide 21 mmol/L (22-30); Chloride 105 mmol/L (98-107); Glucose 125 mg/dL (74-99); Potassium 4.4 mmol/L (3.5-5.1); Sodium 139 mmol/L (137-145)
[2017-06-15] MEDS ORDERED: RX INFO: IV CONTRAST WAS GIVEN 1 EACH MISC MISCELLANE PRN ×2 (05:07→06:15)
[2017-06-15] MEDS: SODIUM CHLORIDE 0.9% 1,000 ML IV SCH ×2 (07:30→17:03)
--- NOTE | 2017-06-15 07:59 | CT ---
EXAMINATION TYPE: CT angio chest DATE OF EXAM: 06/15/2017 7:39 AM COMPARISON: NONE HISTORY: SOB, chest pressure, elevated d dimer CT DLP: 444.9 mGycm Automated exposure control for dose reduction was used. CONTRAST: CTA scan of the thorax is performed with IV Contrast, patient injected with 100 mL of Omnipaque 350, pulmonary embolism protocol. . FINDINGS: There are small, bilateral effusions. There is atelectasis at both lung bases. Lungs are ot herwise clear. There is no significant axillary or mediastinal adenopathy. There are some shotty right mediastinal l ymph nodes. There is no evidence of pulmonary embolus. The aorta is normal in caliber without evidence of dissect ion. There is no pericardial fluid. The heart is not enlarged. There is mild hypertrophic spondylosis within the spine. IMPRESSION: #1 THIS EXAMINATION IS NEGATIVE FOR PULMONARY EMBOLUS. 2. SMALL, BILATERAL EFFUSIONS, GREATER ON THE RIGHT THAN THE LEFT. 3. BIBASILAR ATELECTASIS. 4. DEGENERATIVE CHANGES WITHIN THE SPINE.
--- NOTE | 2017-06-15 08:08 | CT ---
EXAMINATION TYPE: CT abdomen pelvis w con DATE OF EXAM: 06/15/2017 REFERENCE: Previous study dated 06/09/2017 HISTORY: Look for new issue causing rising white count. HISTORY: Follow up to abscess, pt has drainage tube REFERENCE: NONE CT DLP: 1679.7 mGy Automated exposure control for dose reduction was used. TECHNIQUE: Helical acquisition through the abdomen and pelvis was obtained following the oral ingesti on of without Oral Contrast and following intravenous administration of 100 mL of Omnipaque 350. The data was reformatted in axial, coronal and sagittal projections. FINDINGS: There are small, bilateral pleural effusions, greater on the right left. There is bibasila r atelectatic change. There is no pericardial fluid. There is bilateral gynecomastia present. There is a small hiatal hernia. Within the abdomen, there is a small amount of ascites. There is a partial eventration of the right hemidiaphragm. The liver is prominent measuring 21 cm. Th e spleen and gallbladder appear normal. Both adrenal glands appear normal. Both kidneys demonstrate function and appear morphologically normal. The pancreas is unremarkable. There is mild, generalized anasarca. There is stranding in the mesenteric fat which may reflect mesen teric edema or inflammation. There is a drainage catheter in the right lower quadrant. Previously adithya cribed abscess collection has decreased in size. The catheter appears outside of the residual abscess . The abscess now measures 2.6 x 5.1 cm. There is no significant retroperitoneal, iliac or inguinal adenopathy. The bladder is not distended. The colon is largely collapsed. This makes assessment of bowel wall thickening difficult. There are dilated loops of proximal small bowel. The distal small bowel appears unremarkable. The tra nsition point appears to be in the pelvis. There is subcutaneous air at the catheter insertion site but also seen tracking down over the lower p guerline. No bony destructive lesion is seen. There is hypertrophic spondylosis in the lower dorsal spine. IMPRESSION: 1. REDUCTION IN THE SIZE OF THE PATIENT'S PELVIC ABSCESS. THE DRAINAGE CATHETER APPEARS TO BE OUTSIDE THE CONFINES OF THE ABSCESS. 2. GENERALIZED ANASARCA. 3. STRANDING IN THE MESENTERIC FAT MAY REFLECT EDEMA OR MAY REFLECT INFLAMMATION. 4. DILATATION OF THE PROXIMAL SMALL BOWEL MAY REFLECT EARLY OBSTRUCTION OR LOCALIZED ILEUS. 5. HEPATOMEGALY. 6. SMALL HIATAL HERNIA. 7. BILATERAL GYNECOMASTIA. #8 SMALL HIATAL HERNIA. #9 SCANT ASCITES.
[2017-06-15] MEDS: FLUCONAZOLE 100 MG TAB PO SCH (09:35)
[2017-06-15] MEDS: HEPARIN SODIUM,PORCINE 5,000 UNIT/ML 1 ML VIAL SQ SCH ×2 (09:35→17:03)
[2017-06-15] MEDS: metroNIDAZOLE-NS PMX 500 MG in SALINE 1 100ML.BAG IVPB SCH ×2 (09:42→17:03)
[2017-06-15] MEDS ORDERED: IBUPROFEN 800 MG TAB PO PRN (12:45)
--- NOTE | 2017-06-15 12:48 | P.PN ---
Subjective Progress Note Date: 06/15/17 Principal diagnosis: Diverticular abscess The patient had a "bad night ". He had some shortness of breath. An A team was called. He was given some Tylenol. His d-dimer was elevated so a computed tomography scan of the chest was done which showed no evidence of pulmonary embolism. He feels much better today. He says he tends to have "bad nights" no nausea or vomiting. He did have another low-grade temperature to 99.6 last night. Objective - Vital Signs Vital signs: Vital Signs Temp 97.9 F 06/15/17 07:00 Pulse 109 H 06/15/17 08:00 Resp 22 06/15/17 08:00 BP 170/87 06/15/17 07:00 Pulse Ox 96 06/15/17 07:00 Intake & Output 06/14/17 06/15/17 06/15/17 18:59 06:59 18:59 Intake Total 600 1080 Output Total 4 Balance 600 1076 Intake: IV 500 Sodium Chloride 0.9% 1, 500 000 ml @ 75 mls/hr IV . [id number] [facility] Rx#:[id number] Intake, IV Titration 600 100 Amount Piperacillin-Tazobactam 3 100 .375 gm In Dextrose/Water 1 50ml.bag @ 12.5 mls/hr IVPB Q8HR [facility] Rx#: [id number] Sodium Chloride 0.9% 1, 600 000 ml @ 75 mls/hr IV . [id number] [facility] Rx#:[id number] Oral 480 Output: Drainage 4 Right Abdomen 4 Other: Voiding Method Toilet Toilet # Voids 2 4 4 - Constitutional General appearance: Present: cooperative, no acute distress - Respiratory Respiratory: right: diminished (minimally at the bases), bilateral: CTA, negative: wheezing - Cardiovascular Rhythm: regular - Gastrointestinal General gastrointestinal: Present: normal bowel sounds, soft, tenderness ( Primary minimal suprapubic) - Labs CBC & Chem 7: 06/15/17 04:06 06/15/17 04:06 Labs: Abnormal Lab Results - Last 24 Hours (Table) 06/15/17 06/15/17 06/15/17 Range/Units 04:06 04:06 04:06 WBC 21.9 H (3.8-10.6) k/uL Neutrophils # 20.3 H (1.3-7.7) k/uL Lymphocytes # 0.8 L (1.0-4.8) k/uL D-Dimer 14.70 H (<0.60) mg/L FEU Carbon Dioxide 21 L (22-30) mmol/L Glucose 125 H (74-99) mg/dL Calcium 8.2 L (8.4-10.2) mg/dL Microbiology - Last 24 Hours (Table) 06/09/17 22:23 Blood Culture - Preliminary Blood No Growth after 120 hours 06/10/17 14:10 Anaerobic Culture - Final Aspirate Anaerobic Gm Negative Bacilli Anaerobic Gram Positive Cocci - Imaging and Cardiology CT scan - abdomen: report reviewed, image reviewed CT scan - chest: report reviewed Assessment and Plan (1) Diverticular disease of intestine with perforation and abscess Current Visit: Yes Status: Acute Code(s): K57.80 - DVTRCLI OF INTEST, PART UNSP, W PERF AND ABSCESS W/O BLEED SNOMED Code(s): 990986378 (2) Leukocytosis Current Visit: Yes Status: Acute Code(s): D72.829 - ELEVATED WHITE BLOOD CELL COUNT, UNSPECIFIED SNOMED Code(s): 823463252 Plan: The patient's white count is going up. The CT scan of the abdomen did show that the abscess has decreased in size. It does appear that as the abscesses shrunk the catheter is migrated out of the cavity. His cultures are growing multiple organisms along with Lynette. He's on broad-spectrum antibiotics. We' ll obtain blood cultures if he develops a fever 100 or greater. Ask interventional radiology to review the CAT scan for replacement of the percutaneous drain. Progressing slowly
[2017-06-15] MEDS: ACETAMINOPHEN TAB 325 MG TAB PO PRN (17:11)
[2017-06-16] MEDS: metroNIDAZOLE-NS PMX 500 MG in SALINE 1 100ML.BAG IVPB SCH ×4 (00:21→23:41)
[2017-06-16] MEDS: MORPHINE SULFATE/PF 10MG/10ML VL IV PRN ×4 (00:21→15:10)
[2017-06-16] MEDS: PIPERACILLIN-TAZOBACTAM 3.375 GM in DEXTROSE/WATER 1 50ML.BAG IVPB SCH ×4 (00:22→23:41)
[2017-06-16] MEDS: HEPARIN SODIUM,PORCINE 5,000 UNIT/ML 1 ML VIAL SQ SCH ×4 (03:56→23:41)
--- NOTE | 2017-06-16 05:16 | PN ---
PROGRESS NOTE DATE OF SERVICE: 06/15/17 REASON FOR FOLLOWUP: Pelvic abscess from ruptured diverticulitis. INTERVAL HISTORY: The patient is afebrile. He is breathing comfortably. Oral intake remains to be poor. reflux. No worsening abdominal pain or any diarrhea though. EXAMINATION: Blood pressure 145/82 with a pulse of 92, temperature of 98.9. He is 95% on room air. General description is a middle-aged male lying in bed in no distress. Respiratory system: Unlabored breathing. Clear to auscultation anteriorly. Heart S1, S2. Regular rate and rhythm. ABDOMEN: Soft, distended. No guarding or rigidity. LABS: Hemoglobin is 14.7, white count 21.9 with a BUN of 10, creatinine 0.90. DIAGNOSTIC IMPRESSION AND PLAN: Patient with pelvic abscess from ruptured diverticulitis, status post CT-guided drainage. Culture now positive for E coli Streptococcus and Lynette along with anaerobic gram-negative for which the patient covered with Zosyn while the Diflucan did have jump in white count did show fluid collection, currently now being drained by the drainage catheter. Will DC. Discuss with surgery if another CT-guided drainage should be done. This should help in the healing of this infection. Continue with Zosyn and Flagyl and Diflucan. Continue supportive care. MMODL / IJN: [id number] /
[2017-06-16] MEDS: SODIUM CHLORIDE 0.9% 1,000 ML IV SCH ×2 (06:59→16:29)
[2017-06-16] MEDS: FLUCONAZOLE 100 MG TAB PO SCH (08:37)
[2017-06-16 09:37] LABS: Basophils % (A) 0 %; Eosinophils # (A) 0.1 k/uL (0-0.7); Eosinophils % (A) 0 %; HCT 38.4 % (39.0-53.0); Lymphocytes # (A) 0.8 k/uL (1.0-4.8); Lymphocytes % (A) 4 %; MCH 29.4 pg (25.0-35.0); MCV 86.5 fL (80.0-100.0); Mean Platelet Volume 7.1; Monocytes # (A) 0.4 k/uL (0-1.0); Monocytes % (A) 2 %; Neutrophils # (A) 21.1 k/uL (1.3-7.7); Neutrophils % (A) 93 %; Platelet Count 454 k/uL (150-450); Poikilocytosis Slight; RBC 4.43 m/uL (4.30-5.90); RDW 13.5 % (11.5-15.5); WBC 22.6 k/uL (3.8-10.6)
[2017-06-16] MEDS: HYDROcodone/APAP 5-325MG 1 EACH TAB PO PRN (11:05)
--- NOTE | 2017-06-16 14:12 | P.PN ---
Subjective Progress Note Date: 06/16/17 Patient seen and examined at bedside. States that abdominal pain waxes and wanes. States he does feel bloated and a bit more distended than normal today. Denies any nausea and vomiting. Tolerating a clear liquid diet. Denies feeling feverish. IR drain in place with continued output. Objective - Vital Signs Vital signs: Vital Signs Temp 98 F 06/16/17 07:00 Pulse 88 06/16/17 07:00 Resp 18 06/16/17 07:00 BP 123/72 06/16/17 07:00 Pulse Ox 98 06/16/17 07:00 Intake & Output 06/15/17 06/16/17 06/16/17 18:59 06:59 18:59 Intake Total 2100 Output Total 15 Balance 2084 Intake: IV 600 Sodium Chloride 0.9% 1, 600 000 ml @ 75 mls/hr IV . [id number] FLORES Rx#:[id number] Intake, IV Titration 500 Amount Piperacillin-Tazobactam 3 100 .375 gm In Dextrose/Water 1 50ml.bag @ 12.5 mls/hr IVPB Q8HR FLORES Rx#: [id number] Sodium Chloride 0.9% 1, 200 000 ml @ 75 mls/hr IV . [id number] FLORES Rx#:[id number] metroNIDAZOLE-NS PMX 500 200 mg In Saline 1 100ml.bag @ 100 mls/hr IVPB Q8HR FLORES Rx#:[id number] Oral 1000 Output: Drainage 15 Right Abdomen 15 Other: Voiding Method Toilet Toilet Toilet # Voids 2 3 - Constitutional General appearance: Present: cooperative, no acute distress - EENT Eyes: Present: PERRLA - Neck Neck: Present: normal ROM - Respiratory Details: No difficulty with respiration - Gastrointestinal Gastrointestinal Comment(s): Soft, mild tenderness, mild distention, no rebound, no guarding, IR drain is in place with continued purulent output - Musculoskeletal Musculoskeletal: Present: generalized weakness - Psychiatric Psychiatric: Present: A&O x's 3 - Labs CBC & Chem 7: 06/16/17 09:02 06/15/17 04:06 Labs: Abnormal Lab Results - Last 24 Hours (Table) 06/16/17 Range/Units 09:02 WBC 22.6 H (3.8-10.6) k/uL Hct 38.4 L (39.0-53.0) % Plt Count 454 H (150-450) k/uL Neutrophils # 21.1 H (1.3-7.7) k/uL Lymphocytes # 0.8 L (1.0-4.8) k/uL Microbiology - Last 24 Hours (Table) 06/09/17 22:23 Blood Culture - Final Blood No Growth after 144 hours Assessment and Plan (1) Diverticular disease of intestine with perforation and abscess Narrative/Plan: 41-year-old male with diverticulitis and abscess formation - IR drain in place, continued output - Pain improved - Continue antibiotics, appreciate infectious disease recommendations - Clear liquid diet - I did discuss this case in depth with the patient and infectious disease and interventional radiology. On repeat scan the patient shows multiple interloop abscesses that would not be amenable to interventional radiology drainage. Due to his continued increase in leukocytosis and pain waxing and waning, the plan is for a diagnostic laparoscopy with abdominal washout. At this time, if it is necessary to remove his diseased portion of the sigmoid colon we will perform that and leave an ostomy. I did discuss that in depth with the patient and he is agreeable to this plan. Plan for surgery tomorrow and nothing by mouth after midnight. Current Visit: Yes Status: Acute Code(s): K57.80 - DVTRCLI OF INTEST, PART UNSP, W PERF AND ABSCESS W/O BLEED SNOMED Code(s): 573318318
[2017-06-16] MEDS: ONDANSETRON 4 MG/2 ML VIAL IVP PRN (15:35)
--- NOTE | 2017-06-16 23:08 | PN ---
PROGRESS NOTE DATE OF SERVICE: 06/16/2017. REASON FOR FOLLOW UP: Pelvic abscess from a ruptured diverticulitis. INTERVAL HISTORY: The patient is afebrile. He still has off and on abdominal pain mostly in the lower abdominal area, has been feeling nausea but no vomiting. Denies any chest pain, shortness of breath or cough. EXAMINATION: Blood pressure 120/72 with a pulse of 88, temperature of 98. He is 98% on 2 L nasal cannula. General description is a middle-aged male lying in bed in no distress. Respiratory system unlabored breathing. Clear to auscultation anteriorly. Heart S1, S2 regular rate and rhythm. Abdomen soft, slightly distended. No guarding and no rigidity. LABS: Hemoglobin is 13, white count 22.6, BUN of 10, creatinine 0.90. DIAGNOSTIC IMPRESSION AND PLAN: Patient with pelvic abscess with multiple pathogen status post CT guided drainage, now with persistent abdominal pain and worsening white count. Did have a fluid collection that could not be drained surgically, the patient at this time will be continued on Zosyn Diflucan, Flagyl for possible laparoscopy tomorrow, to have them obtain this fluid, the patient will be sent for culture with further adjust of antibiotic based on the culture report. Continue supportive care. MMODL / IJN: [id number] /
[2017-06-17] MEDS: MORPHINE SULFATE/PF 10MG/10ML VL IV PRN ×3 (06:35→23:00)
[2017-06-17 07:56] LABS: Anion Gap 12 mmol/L; Blood Urea Nitrogen 17 mg/dL (9-20); Calcium 7.9 mg/dL (8.4-10.2); Carbon Dioxide 27 mmol/L (22-30); Chloride 106 mmol/L (98-107); Glucose 85 mg/dL (74-99); Sodium 145 mmol/L (137-145)
[2017-06-17 08:27] LABS: Basophils % (A) 0 %; Eosinophils # (A) 0.1 k/uL (0-0.7); Eosinophils % (A) 1 %; HCT 35.9 % (39.0-53.0); HGB 12.2 gm/dL (13.0-17.5); Lymphocytes % (A) 5 %; MCH 29.4 pg (25.0-35.0); MCHC 33.9 g/dL (31.0-37.0); MCV 86.6 fL (80.0-100.0); Mean Platelet Volume 7.4; Monocytes # (A) 0.6 k/uL (0-1.0); Monocytes % (A) 3 %; Neutrophils # (A) 18.2 k/uL (1.3-7.7); Neutrophils % (A) 91 %; Platelet Count 479 k/uL (150-450); Poikilocytosis Slight; RBC 4.14 m/uL (4.30-5.90); RDW 13.4 % (11.5-15.5)
[2017-06-17] MEDS: metroNIDAZOLE-NS PMX 500 MG in SALINE 1 100ML.BAG IVPB SCH ×2 (08:46→19:22)
[2017-06-17] MEDS: PIPERACILLIN-TAZOBACTAM 3.375 GM in DEXTROSE/WATER 1 50ML.BAG IVPB SCH ×2 (08:46→19:22)
[2017-06-17] MEDS: HEPARIN SODIUM,PORCINE 5,000 UNIT/ML 1 ML VIAL SQ SCH ×2 (08:49→19:16)
[2017-06-17] MEDS: SODIUM CHLORIDE 0.9% 1,000 ML IV SCH (08:49)
[2017-06-17] MEDS: ONDANSETRON 4 MG/2 ML VIAL IVP PRN (10:26)
[2017-06-17] MEDS ORDERED: IV FLUID CONTINUATION 1,000 ML IV ONE (10:26)
[2017-06-17] MEDS ORDERED: LACTATED RINGERS 1,000 ML IV ONE ×7 (11:34→18:23)
--- NOTE | 2017-06-17 14:44 | P.OP ---
Date of Procedure: 06/17/17 Preoperative Diagnosis: Diverticulitis with perforation and abscess Postoperative Diagnosis: Diverticulitis with perforation and intra-abdominal abscess Procedure(s) Performed: Exploratory laparotomy Sigmoid colectomy End ostomy creation Anesthesia: PRAVIN Surgeon: Lanie Kurtz Senior Linux Engineer #1: Luis Daniel Wilson Senior Linux Engineer #2: Deric Burnett Pathology: other (Culture of intra-abdominal fluid, sigmoid colon) Condition: stable Disposition: floor Indications for Procedure: 41-year-old male initially presented to the emergency department with complaints of abdominal pain. He states that the pain started 2 months ago and has been waxing and waning. He states over the last week prior to his admission the pain increased tremendously. He was found to have a diverticulitis with perforation and abscess. IR drain was placed and the patient initially improved and then had an increase in leukocytosis and an increase in pain. CT of the abdomen and pelvis was performed as a repetition to evaluate and what he was noted to have multiple intra-abdominal abscesses. At this point it was decided to perform a laparotomy to wash out the patient's abdomen and remove his sigmoid colon. The patient was explained the risks, benefits and alternatives to the procedure provided consent prior to attending the operating suite. Operative Findings: Severely thickened sigmoid colon with perforation. Intra-abdominal stool and purulent material. Dilated small bowel. Description of Procedure: The patient was brought into the operating suite and placed in supine position on the operating table. Sedation was provided by anesthesia and the patient underwent endotracheal intubation. The previously placed IR drain was then removed from the abdomen. The patient was prepped and draped in regular sterile fashion. A vertical midline incision was made and dissection was carried to the fascia the fascia was incised and the peritoneum was entered. The fascia and peritoneum were incised along the length of the incision. Immediate stool and purulent material was noted within the abdomen. Cultures were taken. Suction was then used to remove this material. The sigmoid colon was palpated and was noted to be hard to the touch. It was also severely erythematous and friable. Small bowel loops were adhered and were bluntly dissected free from the sigmoid colon. Dissection was carried bluntly until both a proximal and distal portion of the sigmoid colon was noted to be healthy and appropriate for a staple ligation. A portion of the distal colon was noted to be healthy. A window was created in the mesentery and a purple Endo SANDEE 60 mm load stapler was fired across this area. LigaSure device was then used to free the diseased portion of the sigmoid colon from the mesentery. This was done proximally until healthy colon was noted. A window was created at the mesentery of the healthy proximal descending colon. A purple Endo SANDEE 60 mm stapler load was then fired across this. The descending colon was then freed from the white line of Toldt using electrocautery and hemostasis was maintained. The splenic flexure was then taken down to create enough length for a ostomy creation. A site for the anticipated ostomy was noted on the left side of the abdomen. A circular incision was made dissection was carried to the fascia. The fascia was incised in a cruciate manner. The muscle was split and the peritoneum was then entered. The colon was then brought through this site for the anticipated ostomy was noted to be of adequate length. At this point over 3 L of irrigation was used within the abdomen to wash this area out. A ANTIONE drain was placed in the pelvis. This was sutured in place with a 2-0 nylon suture. The fascia of the midline incision was then closed with a running 0 PDS suture. Skin chiki were then used. The ostomy was then matured in a Michelle fashion. Ostomy device was placed. Sterile dressing was applied. The patient was then awakened in the operating suite and taken to postanesthesia care unit in stable condition.
[2017-06-17] MEDS ORDERED: fentaNYL (PF) 50 MCG/ML 2 ML AMP IVP ONE ×2 (15:29→15:45)
[2017-06-17] MEDS: FLUCONAZOLE 100 MG TAB PO SCH (19:16)
[2017-06-17] MEDS: HYDROcodone/APAP 5-325MG 1 EACH TAB PO PRN (20:37)
[2017-06-17] MEDS: METOCLOPRAMIDE 5 MG/ML 2 ML VIAL IVP SCH (20:38)
[2017-06-17] MEDS: ACETAMINOPHEN TAB 325 MG TAB PO PRN (21:37)
--- NOTE | 2017-06-17 22:01 | PN ---
PROGRESS NOTE DATE OF SERVICE: 06/17/2017 REASON FOR FOLLOWUP: Intraabdominal abscess. INTERVAL HISTORY: The patient is afebrile. He was taken to the OR this morning. He is status post exploratory laparotomy with sigmoid colectomy and ostomy creation for intraabdominal abscess. Culture has been obtained. Patient was seen in the postoperative area, where the patient has been complaining of some abdominal distention and pain and nausea but no vomiting. No chest pain, shortness of breath or cough. PHYSICAL EXAMINATION: Blood pressure is 132/75 with a pulse of 100, temperature 98.9. He is 95% on 3 L nasal cannula. General description is a middle-aged male lying in bed in no distress. RESPIRATORY SYSTEM: Unlabored breathing. Clear to auscultation anteriorly. HEART: S1, S2. Regular rate and rhythm. ABDOMEN: Soft. Mildly distended. No guarding or rigidity. EXTREMITIES: No edema of the feet. LABS: Hemoglobin is 12.2 with a white count of 20,000, BUN of 17, creatinine 0.75. DIAGNOSTIC IMPRESSION AND PLAN: Patient with a pelvic abscess from ruptured diverticulitis, failing medical therapy, status post laparotomy and diverting colostomy. Currently on Zosyn and Flagyl. That will be continued, adjusting it further based on the repeated cultures. Continue supportive care. MMODL / IJN: [id number] /
[2017-06-18] MEDS: METOCLOPRAMIDE 5 MG/ML 2 ML VIAL IVP SCH ×4 (01:02→18:10)
[2017-06-18] MEDS: PIPERACILLIN-TAZOBACTAM 3.375 GM in DEXTROSE/WATER 1 50ML.BAG IVPB SCH ×3 (01:02→17:06)
[2017-06-18] MEDS: metroNIDAZOLE-NS PMX 500 MG in SALINE 1 100ML.BAG IVPB SCH ×3 (01:02→17:06)
[2017-06-18] MEDS: HEPARIN SODIUM,PORCINE 5,000 UNIT/ML 1 ML VIAL SQ SCH ×3 (01:02→17:06)
[2017-06-18] MEDS: HYDROcodone/APAP 5-325MG 1 EACH TAB PO PRN (02:09)
[2017-06-18] MEDS: MORPHINE SULFATE/PF 10MG/10ML VL IV PRN ×2 (02:48→12:18)
[2017-06-18] MEDS: ONDANSETRON 4 MG/2 ML VIAL IVP PRN (03:18)
[2017-06-18] MEDS: PANTOPRAZOLE 40 MG/10 ML VIAL IV SCH (06:04)
[2017-06-18 07:52] LABS: Basophils # (A) 0.1 k/uL (0-0.2); Basophils % (A) 0 %; Eosinophils # (A) 0.1 k/uL (0-0.7); Eosinophils % (A) 0 %; HCT 39.6 % (39.0-53.0); HGB 13.4 gm/dL (13.0-17.5); Lymphocytes # (A) 0.7 k/uL (1.0-4.8); Lymphocytes % (A) 2 %; MCH 29.8 pg (25.0-35.0); MCHC 33.9 g/dL (31.0-37.0); Mean Platelet Volume 7.4; Monocytes % (A) 3 %; Neutrophils # (A) 30.7 k/uL (1.3-7.7); Neutrophils % (A) 93 %; Platelet Count 619 k/uL (150-450); Poikilocytosis Slight; RDW 13.6 % (11.5-15.5)
[2017-06-18 07:54] LABS: ALT 46 U/L (21-72); AST 51 U/L (17-59); Albumin 2.5 g/dL (3.5-5.0); Alkaline Phosphatase 121 U/L (38-126); Anion Gap 14 mmol/L; Blood Urea Nitrogen 18 mg/dL (9-20); Carbon Dioxide 26 mmol/L (22-30); Chloride 103 mmol/L (98-107); Glucose 151 mg/dL (74-99); Potassium 4.8 mmol/L (3.5-5.1); Sodium 143 mmol/L (137-145); Total Bilirubin 0.7 mg/dL (0.2-1.3)
[2017-06-18] MEDS ORDERED: SODIUM CHLORIDE 0.9% 1,000 ML IV ONE ×2 (07:56→20:42)
[2017-06-18] MEDS ORDERED: ACETAMINOPHEN IV (For NPO) 1,000 MG in EMPTY BAG 1 BAG IVPB STA (07:56)
[2017-06-18 07:58] LABS: WBC 32.9 k/uL (3.8-10.6)
[2017-06-18] MEDS: LACTATED RINGERS 1,000 ML IV SCH ×2 (09:03→17:06)
[2017-06-18] MEDS: FLUCONAZOLE 100 MG TAB PO SCH (10:36)
[2017-06-18] MEDS: FLUCONAZOLE IN NACL,ISO-OSM 400 MG in SALINE 1 200ML.BAG IVPB SCH (11:35)
[2017-06-18] MEDS ORDERED: LORazepam 2 MG/ML INJ IV STA (19:54)
--- NOTE | 2017-06-18 20:23 | PN ---
PROGRESS NOTE DATE OF SERVICE: 06/18/2017 REASON FOR FOLLOW UP: Pelvic abscess from ruptured diverticulitis. INTERVAL HISTORY: The patient did have a low-grade fever this morning. He was also noted to have a jump in the white count to 32,0000. The patient, however, has been breathing comfortably. Denies having any chest pain, shortness of breath or cough. Abdominal pain is currently controlled with pain medication. No nausea. No vomiting. No output in the colostomy bag. PHYSICAL EXAMINATION: Blood pressure 145/82 with a pulse of 102, temperature of 97.9. He is 93% on room air. General description is a middle-aged male lying in bed in no distress. RESPIRATORY SYSTEM: Unlabored breathing. Clear to auscultation anteriorly. HEART: S1, S2. Regular rate and rhythm. ABDOMEN: Soft. No guarding or rigidity. EXTREMITIES: No edema of the feet. LABS: Hemoglobin 13.4, white count 32,000 with a BUN of 18, creatinine 0.83. DIAGNOSTIC IMPRESSION AND PLAN: Patient with secondary peritonitis from perforated diverticulitis with apparently stools in the status post diverting colostomy. He did have a postoperative jump in the white count and low-grade fever. Diflucan has been switched over to IV and continue Zosyn. Will follow up on the repeat cultures closely to adjust antibiotic further if needed. Family was present at the bedside. Their questions were answered. MMODL / IJN: [id number] /
--- NOTE | 2017-06-18 20:40 | P.PN ---
Subjective Progress Note Date: 06/18/17 Pt seen and examined at bedside. States he is nauseous and has not had emesis. States pain is well controlled. Willingham catheter in place with marginal and dark output. Has not ambulated since surgery. Objective - Vital Signs Vital signs: Vital Signs Temp 97.2 F L 06/18/17 20:00 Pulse 98 06/18/17 20:00 Resp 18 06/18/17 20:00 BP 126/75 06/18/17 20:00 Pulse Ox 96 06/18/17 20:00 Intake & Output 06/18/17 06/18/17 06/19/17 06:59 18:59 06:59 Intake Total 760 1000 Output Total 475 3780 200 Balance 285 -2780 -200 Intake: IV 1000 Lactated Ringers 1,000 ml 1000 @ 125 mls/hr IV .Q8H ONE Rx#:[id number] Intake, IV Titration 400 Amount Lactated Ringers 1,000 ml 400 @ 125 mls/hr IV .Q8H ONE Rx#:[id number] Oral 360 Output: Gastric Drainage 2900 200 Drainage 50 30 Left 50 Right Abdomen 30 Urine 425 850 Uretheral (Willingham) 850 Other: Voiding Method Indwelling Catheter Indwelling Catheter - Constitutional General appearance: Present: cooperative - EENT ENT: Present: hearing grossly normal - Respiratory Details: no difficulty with respiration - Gastrointestinal Gastrointestinal Comment(s): soft, appropriate tenderness, mild distention, no rebound, no guarding, ANTIONE in place with serosanguinous output, Ostomy patent - no significant output - Musculoskeletal Musculoskeletal: Present: generalized weakness - Psychiatric Psychiatric: Present: A&O x's 3 - Labs CBC & Chem 7: 06/18/17 06:51 06/18/17 06:51 Labs: Abnormal Lab Results - Last 24 Hours (Table) 06/18/17 06/18/17 Range/Units 06:51 06:51 WBC 32.9 H* (3.8-10.6) k/uL Plt Count 619 H (150-450) k/uL Neutrophils # 30.7 H (1.3-7.7) k/uL Lymphocytes # 0.7 L (1.0-4.8) k/uL Glucose 151 H (74-99) mg/dL Calcium 8.0 L (8.4-10.2) mg/dL Total Protein 5.0 L (6.3-8.2) g/dL Albumin 2.5 L (3.5-5.0) g/dL Microbiology - Last 24 Hours (Table) 06/17/17 14:20 Gram Stain - Preliminary Abdomen Wound Culture - Preliminary 06/17/17 14:20 Anaerobic Culture - Preliminary Abdominal Fluid Assessment and Plan (1) Diverticular disease of intestine with perforation and abscess Narrative/Plan: 41-year-old male with diverticulitis and abscess formation, POD #1 Ex Lap, Braden's procedure - Nauseous, will place NGT with likely Ileus - Pain mgmt - Continue antibiotics, appreciate infectious disease recommendations - Keep NPO with ice chips - Continue willingham catheter and aggressive fluid resuscitation - Increase activity - DVT prophylaxis Current Visit: Yes Status: Acute Code(s): K57.80 - DVTRCLI OF INTEST, PART UNSP, W PERF AND ABSCESS W/O BLEED SNOMED Code(s): 653492150
[2017-06-19] MEDS: metroNIDAZOLE-NS PMX 500 MG in SALINE 1 100ML.BAG IVPB SCH ×3 (00:58→16:04)
[2017-06-19] MEDS: HEPARIN SODIUM,PORCINE 5,000 UNIT/ML 1 ML VIAL SQ SCH ×3 (00:59→16:04)
[2017-06-19] MEDS: METOCLOPRAMIDE 5 MG/ML 2 ML VIAL IVP SCH ×4 (00:59→17:33)
[2017-06-19] MEDS: PIPERACILLIN-TAZOBACTAM 3.375 GM in DEXTROSE/WATER 1 50ML.BAG IVPB SCH ×3 (01:01→16:04)
[2017-06-19] MEDS: LACTATED RINGERS 1,000 ML IV SCH ×3 (01:02→17:10)
[2017-06-19 08:03] LABS: Basophils % (A) 0 %; Eosinophils # (A) 0.1 k/uL (0-0.7); Eosinophils % (A) 1 %; Lymphocytes # (A) 1.2 k/uL (1.0-4.8); Lymphocytes % (A) 8 %; MCH 29.3 pg (25.0-35.0); MCHC 33.4 g/dL (31.0-37.0); MCV 87.8 fL (80.0-100.0); Mean Platelet Volume 7.4; Monocytes # (A) 0.6 k/uL (0-1.0); Monocytes % (A) 3 %; Neutrophils % (A) 87 %; Platelet Count 514 k/uL (150-450); Poikilocytosis Slight; RBC 3.31 m/uL (4.30-5.90); RDW 13.8 % (11.5-15.5); WBC 16.1 k/uL (3.8-10.6)
[2017-06-19 08:14] LABS: HGB 9.7 gm/dL (13.0-17.5)
[2017-06-19 08:17] LABS: Anion Gap 9 mmol/L; Blood Urea Nitrogen 17 mg/dL (9-20); Calcium 7.5 mg/dL (8.4-10.2); Carbon Dioxide 29 mmol/L (22-30); Chloride 107 mmol/L (98-107); Glucose 101 mg/dL (74-99); Potassium 4.2 mmol/L (3.5-5.1); Sodium 145 mmol/L (137-145)
[2017-06-19] MEDS: FLUCONAZOLE IN NACL,ISO-OSM 400 MG in SALINE 1 200ML.BAG IVPB SCH (09:35)
[2017-06-19] MEDS: PANTOPRAZOLE 40 MG/10 ML VIAL IV SCH (09:36)
[2017-06-19 11:15] LABS: Ionized Calcium 4.8 mg/dL (4.5-5.3)
[2017-06-19 11:23] LABS: ALT 31 U/L (21-72); AST 26 U/L (17-59); Alkaline Phosphatase 70 U/L (38-126); Anion Gap 8 mmol/L; Blood Urea Nitrogen 16 mg/dL (9-20); Calcium 7.6 mg/dL (8.4-10.2); Carbon Dioxide 29 mmol/L (22-30); Chloride 108 mmol/L (98-107); Glucose 98 mg/dL (74-99); Magnesium 2.2 mg/dL (1.6-2.3); Phosphorus 2.5 mg/dL (2.5-4.5); Potassium 4.1 mmol/L (3.5-5.1); Sodium 145 mmol/L (137-145); Total Bilirubin 0.2 mg/dL (0.2-1.3); Total Protein 4.4 g/dL (6.3-8.2); Triglycerides 137 mg/dL (<150)
[2017-06-19] MEDS: MORPHINE SULFATE/PF 10MG/10ML VL IV PRN ×3 (11:32→21:40)
[2017-06-19 11:43] LABS: Glucose,Whole Blood 103 mg/dL (75-99)
[2017-06-19] MEDS: MVI, ADULT NO.4 WITH VIT K 10 ML, TRACE (CONC-1ML/DOSE) 1 ML in AMIN 2.4%/DEX 6.8%/LIPI... IV SCH ×3 (13:19)
[2017-06-19] MEDS: INSULIN ASPART 100 UNIT/ML 1 ML 10 ML VIAL SQ SCH ×2 (13:19→17:22)
--- NOTE | 2017-06-19 15:43 | CDI ---
Last Revision, February 2017 Documentation Clarification Form Date: 06/19/17 From: Tiffany Thayer RN, CCDS Admit Date: 06/10/2017 12:27:00 AM Patient Name: Faheem Bautista Visit Number: [id number] Discharge Date: ATTENTION: The Clinical Documentation Specialists (CDI) and [facility] Coding Staff appreciate your assistance in clarifying documentation. Please respond to the clarification below the line at the bottom and electronically sign. The CDI & [facility] Coding staff will review the response and follow-up if needed. Please note: Queries are made part of the Legal Health Record. If you have any questions, please contact the author of this message via ITS. Dr. Lanie Kurtz 06/11/17 ID (Dr. Pan) consult impression: Patient with sepsis admitted to the hospital with significant abdominal pain. the patient did have a fever of 101 degrees Fahrenheit, did have tachycardia, heart rate 102 to 108 along with elevated white count of 15,000, meeting criteria for systemic inflammatory response syndrome/sepsis source is the pelvic abscess, likely from a ruptured diverticulitis. History/Risk Factors: No reported history, current every day smoker Clinical Indicators: Complains of abdominal pain. CT of abdomen with pelvic abscess, likely from diverticulitis, with intraperitoneal free air. WBC/Left Shift 15.2 Lactic acid: 1.9 Blood cultures: No growth Vitals signs on admission: 196/83 113 20 100.6 Other Clinical Indicators: ED evaluation: 06/10/17 00.29: At this time patient does meet sepsis criteria. Diverticular disease of the intestine with perforation and abscess. Treatment: Zosyn IV, 06/10/17 CT IR: drainage of abscess 06/17/17 exploratory laparotomy, Sigmoid colectomy End ostomy creation ID Consult: See above IV Fluid Diflucan IV Flagyl IV MS IV PRN, TPN In your professional opinion, please clarify if these findings signify one of the following conditions, whether the condition is POA, and cause, if known: Condition Sepsis Present on Admission: Yes Identify the (suspected) organism per Microbiology cultures SIRS Criteria..2 or more of the following may indicate SIRS: Temperature < 96.8F (36C) or > 101.0F (38.3C) Heart Rate > 90 bpm Respiratory Rate > 20 breaths/min or PaCO2 < 32 mmHg White Blood Cell Count > 12,000 or < 4,000 cells/mm3 or > 10% bands Lactate >2.0 mmol/L (>4.0 is equivalent to septic shock) Please continue to document in your progress notes and discharge summary in order to capture severity of illness and risk of mortality. Include clinical findings that support your diagnosis. MTDD
[2017-06-19 17:19] LABS: Glucose,Whole Blood 95 mg/dL (75-99)
[2017-06-19 19:02] LABS: Hemoglobin A1C 5.9 % (4.0-6.0)
[2017-06-20] MEDS: PIPERACILLIN-TAZOBACTAM 3.375 GM in DEXTROSE/WATER 1 50ML.BAG IVPB SCH ×3 (00:39→15:14)
[2017-06-20] MEDS: HEPARIN SODIUM,PORCINE 5,000 UNIT/ML 1 ML VIAL SQ SCH ×3 (00:39→15:15)
[2017-06-20] MEDS: SODIUM CHLORIDE 0.9% IVPB SCH ×2 (00:39→09:31)
[2017-06-20] MEDS: METOCLOPRAMIDE 5 MG/ML 2 ML VIAL IVP SCH ×4 (00:39→17:19)
[2017-06-20] MEDS: DAPTOMYCIN IVPB SCH ×2 (00:39→09:31)
[2017-06-20] MEDS: LACTATED RINGERS 1,000 ML IV SCH ×3 (00:40→16:18)
[2017-06-20] MEDS: INSULIN ASPART 100 UNIT/ML 1 ML 10 ML VIAL SQ SCH ×4 (00:56→17:47)
[2017-06-20 01:05] LABS: Glucose,Whole Blood 95 mg/dL (75-99)
[2017-06-20] MEDS: MORPHINE SULFATE/PF 10MG/10ML VL IV PRN ×3 (02:44→19:44)
[2017-06-20] MEDS: metroNIDAZOLE-NS PMX 500 MG in SALINE 1 100ML.BAG IVPB SCH ×3 (02:45→15:15)
[2017-06-20 06:02] LABS: Glucose,Whole Blood 124 mg/dL (75-99)
[2017-06-20 07:42] LABS: Basophils % (A) 0 %; Eosinophils # (A) 0.2 k/uL (0-0.7); Eosinophils % (A) 2 %; HCT 31.3 % (39.0-53.0); HGB 10.2 gm/dL (13.0-17.5); Lymphocytes # (A) 1.4 k/uL (1.0-4.8); Lymphocytes % (A) 11 %; MCH 29.1 pg (25.0-35.0); MCHC 32.5 g/dL (31.0-37.0); MCV 89.5 fL (80.0-100.0); Mean Platelet Volume 7.2; Monocytes # (A) 0.5 k/uL (0-1.0); Monocytes % (A) 3 %; Neutrophils # (A) 11.1 k/uL (1.3-7.7); Neutrophils % (A) 83 %; Platelet Count 540 k/uL (150-450); Poikilocytosis Slight; RBC 3.49 m/uL (4.30-5.90); RDW 13.8 % (11.5-15.5); WBC 13.5 k/uL (3.8-10.6)
--- NOTE | 2017-06-20 07:49 | PN ---
PROGRESS NOTE DATE OF SERVICE: 06/19/2017 REASON FOR FOLLOWUP: Abdominal abscess from ruptured diverticulitis. INTERVAL HISTORY: The patient is afebrile, he is breathing comfortably. Abdominal pain is currently controlled. No nausea, no vomiting. Denies having any chest pain, shortness of breath or cough. PHYSICAL EXAMINATION: Blood pressure is 129/79 with a pulse of 96, temperature 98.9. He is 91% on 2 L nasal cannula. General description is a middle-aged male, lying in bed in no distress. RESPIRATORY SYSTEM: Unlabored breathing, clear to auscultation anteriorly. HEART: S1, S2. Regular rate and rhythm. ABDOMEN: Soft, no tenderness. EXTREMITIES: No edema of the feet. LABS: Hemoglobin 9.7, white count 16.1 with a BUN of 16, creatinine 0.70. OR cultures currently showing E. coli, Enterococcus faecium and that is ampicillin resistant on these species. DIAGNOSTIC IMPRESSION AND PLAN: Patient with abdominal abscess with perforated bowel, now with culture showing Escherichia coli, sensitive to Zosyn and Unasyn. Enterococcus faecium which is sensitive to vancomycin any species. Patient's antibiotic will be adjusted by addition of daptomycin to cover for the enterococcus faecium and continue with Zosyn and Diflucan. Antibiotic will be adjusted further on the clinical response. Continue supportive care. MMODL / IJN: [id number] /
[2017-06-20 07:58] LABS: Anion Gap 11 mmol/L; Blood Urea Nitrogen 13 mg/dL (9-20); Calcium 7.6 mg/dL (8.4-10.2); Carbon Dioxide 27 mmol/L (22-30); Chloride 106 mmol/L (98-107); Glucose 123 mg/dL (74-99); Magnesium 2.1 mg/dL (1.6-2.3); Phosphorus 3.1 mg/dL (2.5-4.5); Potassium 4.2 mmol/L (3.5-5.1); Sodium 144 mmol/L (137-145)
[2017-06-20] MEDS: PANTOPRAZOLE 40 MG/10 ML VIAL IV SCH (09:30)
[2017-06-20] MEDS: FLUCONAZOLE IN NACL,ISO-OSM 400 MG in SALINE 1 200ML.BAG IVPB SCH (10:38)
[2017-06-20 13:09] LABS: Glucose,Whole Blood 113 mg/dL (75-99)
[2017-06-20] MEDS: MVI, ADULT NO.4 WITH VIT K 10 ML, TRACE (CONC-1ML/DOSE) 1 ML in AMIN 2.4%/DEX 6.8%/LIPI... IV SCH ×6 (13:13→13:15)
--- NOTE | 2017-06-20 14:55 | CDI ---
Last Revision, February 2017 Documentation Clarification Form Date: 06/20/17 From: Tiffany Thayer RN, CCDS Admit Date: 06/10/2017 12:27:00 AM Patient Name: Faheem Bautista Visit Number: [id number] Discharge Date: ATTENTION: The Clinical Documentation Specialists (CDI) and [facility] Coding Staff appreciate your assistance in clarifying documentation. Please respond to the clarification below the line at the bottom and electronically sign. The CDI & [facility] Coding staff will review the response and follow-up if needed. Please note: Queries are made part of the Legal Health Record. If you have any questions, please contact the author of this message via ITS. Dr. Lanie Humphries, will place NGT with likely Ileus, is documented in the progress note on 06/18/17 . Patients Admitting Diagnosis: Diverticulitis with perforation and abscess Post-Operative Diagnosis: Diverticulitis with perforation and intra-abdominal abscess Procedure performed: Exploratory laparotomy, Sigmoid colectomy, End ostomy creation History/Risk Factors: Diverticulitis Clinical Indicators: States he is nauseous, has not had emesis. He has not ambulated since surgery. His abdomen is soft, appropriate tenderness, mild distention, no rebound, no guarding, ostomy patent-no significant output. Treatment: NGT Keep NPO with ice chips Pain management In order to accurately reflect this patients severity of illness, please clarify if the Ileus diagnosis is: An expected post-procedural or post-surgical condition; Please continue to document in your progress notes and discharge summary in order to capture severity of illness and risk of mortality. Include clinical findings that support your diagnosis. MTDD
--- NOTE | 2017-06-20 16:16 | P.PN ---
Subjective Progress Note Date: 06/20/17 Patient seen and examined at bedside. States he is not having abdominal pain. He is uncomfortable with NG tube in place. He denies any nausea and vomiting. He states he has ambulated. Objective - Vital Signs Vital signs: Vital Signs Temp 97.8 F 06/20/17 07:00 Pulse 91 06/20/17 07:00 Resp 14 06/20/17 08:00 BP 145/83 06/20/17 07:00 Pulse Ox 95 06/20/17 07:00 Intake & Output 06/19/17 06/20/17 06/20/17 18:59 06:59 18:59 Intake Total 1195 Output Total 750 650 Balance -750 -650 1195 Weight 140 kg 140 kg Intake: Intake, IV Titration 1195 Amount Mvi, Adult No.4 with Vit 1195 K 10 ml Trace (Conc-1Ml/ Dose) 1 ml In Raygoza 2.4%/ Dex 6.8%/Lipid/Lytes 1, 920 ml @ 50 mls/hr IV . Q24H [facility] Rx#:[id number] Output: Gastric Drainage 200 250 Drainage 50 100 Left 100 Right Abdomen 50 Urine 500 300 Uretheral (Brown) 300 Other: Voiding Method Indwelling Catheter Urinal # Voids 1 - Constitutional General appearance: Present: cooperative, no acute distress - EENT ENT: Present: hearing grossly normal - Respiratory Details: No difficulty with respiration - Gastrointestinal Gastrointestinal Comment(s): Soft, appropriate tenderness, nondistended, no rebound, no guarding, midline incision clean, dry and intact, ostomy site pink and patent with serosanguineous output - Musculoskeletal Musculoskeletal: Present: generalized weakness - Psychiatric Psychiatric: Present: A&O x's 3 - Labs CBC & Chem 7: 06/20/17 06:34 06/20/17 06:34 Labs: Abnormal Lab Results - Last 24 Hours (Table) 06/20/17 06/20/17 06/20/17 Range/Units 05:55 06:34 06:34 WBC 13.5 H (3.8-10.6) k/uL RBC 3.49 L (4.30-5.90) m/uL Hgb 10.2 L (13.0-17.5) gm/dL Hct 31.3 L (39.0-53.0) % Plt Count 540 H (150-450) k/uL Neutrophils # 11.1 H (1.3-7.7) k/uL Creatinine 0.60 L (0.66-1.25) mg/dL Glucose 123 H (74-99) mg/dL POC Glucose (mg/dL) 124 H (75-99) mg/dL Calcium 7.6 L (8.4-10.2) mg/dL 06/20/17 Range/Units 13:06 WBC (3.8-10.6) k/uL RBC (4.30-5.90) m/uL Hgb (13.0-17.5) gm/dL Hct (39.0-53.0) % Plt Count (150-450) k/uL Neutrophils # (1.3-7.7) k/uL Creatinine (0.66-1.25) mg/dL Glucose (74-99) mg/dL POC Glucose (mg/dL) 113 H (75-99) mg/dL Calcium (8.4-10.2) mg/dL Microbiology - Last 24 Hours (Table) 06/17/17 14:20 Gram Stain - Final Abdomen Wound Culture - Final Escherichia coli Enterococcus faecium Lynette krusei 06/18/17 09:19 Blood Culture - Preliminary Blood No Growth after 48 hours 06/17/17 14:20 Anaerobic Culture - Preliminary Abdominal Fluid Assessment and Plan (1) Diverticular disease of intestine with perforation and abscess Narrative/Plan: 41-year-old male with diverticulitis and abscess formation, POD #3 Ex Lap, Braden's procedure - Continue NG tube with ileus, plan to DC NG tube when patient has ostomy output - Pain mgmt - Continue antibiotics, appreciate infectious disease recommendations - Keep NPO with ice chips, PPN - Increase activity - DVT prophylaxis Current Visit: Yes Status: Acute Code(s): K57.80 - DVTRCLI OF INTEST, PART UNSP, W PERF AND ABSCESS W/O BLEED SNOMED Code(s): 145635087
[2017-06-20 16:54] LABS: Glucose,Whole Blood 107 mg/dL (75-99)
[2017-06-20 21:11] LABS: Glucose,Whole Blood 123 mg/dL (75-99)
--- NOTE | 2017-06-20 21:22 | PN ---
PROGRESS NOTE DATE OF SERVICE: 06/20/2017. REASON FOR FOLLOWUP: Abdominal abscess. INTERVAL HISTORY: The patient is afebrile. He is complaining of his NG some regurgitation, but denies chest pain, shortness of breath, cough. Abdominal pain has improved. No output in the colostomy bag yet. EXAMINATION: Blood pressure 125/83 with a pulse of 91, temperature 97.8. He is 95% on 2 L nasal cannula. General description is a middle-aged male lying in bed in no distress. Respiratory system unlabored breathing, clear to auscultation anteriorly. Heart S1, S2. Regular rate an rhythm. ABDOMEN: Soft. Mildly distended. No guarding. No rigidity. No output in the colostomy bag. LABS: Hemoglobin is 10.2, white count of 30.5 with a BUN of 13, creatinine 0.60. The abdominal cultures with Lynette and E coli. DIAGNOSTIC IMPRESSION AND PLAN: Patient with abdominal abscess from a ruptured diverticulitis with multiple resistant pathogen. Antibiotic will continue on daptomycin and Zosyn. Will discontinue the fluconazole. Start the patient on Vanco in view of the Lynette that is grown. Continue supportive care. MMODL / IJN: [id number] /
[2017-06-20] MEDS: MICAFUNGIN 100 MG in SODIUM CHLORIDE 0.9% 100 ML IVPB SCH (22:02)
[2017-06-21] MEDS: LACTATED RINGERS 1,000 ML IV SCH ×3 (00:40→19:37)
[2017-06-21] MEDS: METOCLOPRAMIDE 5 MG/ML 2 ML VIAL IVP SCH ×4 (00:40→17:46)
[2017-06-21] MEDS: metroNIDAZOLE-NS PMX 500 MG in SALINE 1 100ML.BAG IVPB SCH ×3 (00:40→17:12)
[2017-06-21] MEDS: PIPERACILLIN-TAZOBACTAM 3.375 GM in DEXTROSE/WATER 1 50ML.BAG IVPB SCH ×3 (00:40→17:12)
[2017-06-21] MEDS: HEPARIN SODIUM,PORCINE 5,000 UNIT/ML 1 ML VIAL SQ SCH ×3 (00:41→18:00)
[2017-06-21] MEDS: INSULIN ASPART 100 UNIT/ML 1 ML 10 ML VIAL SQ SCH ×4 (00:57→18:40)
[2017-06-21 01:02] LABS: Glucose,Whole Blood 105 mg/dL (75-99)
[2017-06-21] MEDS: MORPHINE SULFATE/PF 10MG/10ML VL IV PRN ×2 (06:34→21:39)
[2017-06-21 06:47] LABS: Glucose,Whole Blood 124 mg/dL (75-99)
[2017-06-21 07:27] LABS: Basophils # (A) 0.1 k/uL (0-0.2); Basophils % (A) 1 %; Eosinophils # (A) 0.2 k/uL (0-0.7); Eosinophils % (A) 2 %; HGB 10.9 gm/dL (13.0-17.5); Lymphocytes # (A) 1.4 k/uL (1.0-4.8); Lymphocytes % (A) 10 %; MCHC 33.1 g/dL (31.0-37.0); MCV 87.8 fL (80.0-100.0); Mean Platelet Volume 7.5; Monocytes # (A) 0.4 k/uL (0-1.0); Monocytes % (A) 3 %; Neutrophils # (A) 11.2 k/uL (1.3-7.7); Neutrophils % (A) 83 %; Platelet Count 543 k/uL (150-450); Poikilocytosis Slight; RBC 3.76 m/uL (4.30-5.90); RDW 13.8 % (11.5-15.5); WBC 13.5 k/uL (3.8-10.6)
[2017-06-21 07:37] LABS: Anion Gap 10 mmol/L; Blood Urea Nitrogen 9 mg/dL (9-20); Calcium 7.6 mg/dL (8.4-10.2); Carbon Dioxide 25 mmol/L (22-30); Chloride 104 mmol/L (98-107); Glucose 122 mg/dL (74-99); Magnesium 1.9 mg/dL (1.6-2.3); Phosphorus 3.1 mg/dL (2.5-4.5); Potassium 4.4 mmol/L (3.5-5.1); Sodium 139 mmol/L (137-145)
[2017-06-21 07:49] LABS: Polychromasia Present
[2017-06-21] MEDS: PANTOPRAZOLE 40 MG/10 ML VIAL IV SCH (08:08)
--- NOTE | 2017-06-21 08:08 | P.PN ---
Subjective Progress Note Date: 06/21/17 Patient seen and examined at bedside. States he is feeling well. Ostomy has been putting out liquid stool. Denies any nausea and vomiting with NG tube in place. NG tube output has decreased. Patient is ambulating and getting out of bed. Objective - Vital Signs Vital signs: Vital Signs Temp 99.5 F 06/21/17 00:00 Pulse 85 06/21/17 00:00 Resp 18 06/21/17 00:00 BP 146/83 06/21/17 00:00 Pulse Ox 92 L 06/21/17 00:00 Intake & Output 06/20/17 06/21/17 06/21/17 18:59 06:59 18:59 Intake Total 1195 Output Total 270 920 Balance 925 -920 Weight 140 kg Intake: Intake, IV Titration 1195 Amount Mvi, Adult No.4 with Vit 1195 K 10 ml Trace (Conc-1Ml/ Dose) 1 ml In Raygoza 2.4%/ Dex 6.8%/Lipid/Lytes 1, 920 ml @ 50 mls/hr IV . Q24H [facility] Rx#:[id number] Output: Gastric Drainage 200 450 Drainage 70 70 Left 70 Right Abdomen 70 Stool 400 Other: # Voids 4 - Constitutional General appearance: Present: cooperative, no acute distress - Respiratory Details: No difficulty with respiration - Gastrointestinal Gastrointestinal Comment(s): Soft, appropriate tenderness, nondistended, no rebound, no guarding, incision site clean, dry and intact, ostomy pink and patent, ANTIONE drain in place with serosanguineous output - Musculoskeletal Musculoskeletal: Present: generalized weakness - Psychiatric Psychiatric: Present: A&O x's 3 - Labs CBC & Chem 7: 06/21/17 06:30 06/21/17 06:30 Labs: Abnormal Lab Results - Last 24 Hours (Table) 06/20/17 06/20/17 06/20/17 Range/Units 13:06 16:52 21:09 WBC (3.8-10.6) k/uL RBC (4.30-5.90) m/uL Hgb (13.0-17.5) gm/dL Hct (39.0-53.0) % Plt Count (150-450) k/uL Neutrophils # (1.3-7.7) k/uL Creatinine (0.66-1.25) mg/dL Glucose (74-99) mg/dL POC Glucose (mg/dL) 113 H 107 H 123 H (75-99) mg/dL Calcium (8.4-10.2) mg/dL 06/21/17 06/21/17 06/21/17 Range/Units 00:57 06:30 06:30 WBC 13.5 H (3.8-10.6) k/uL RBC 3.76 L (4.30-5.90) m/uL Hgb 10.9 L (13.0-17.5) gm/dL Hct 33.0 L (39.0-53.0) % Plt Count 543 H (150-450) k/uL Neutrophils # 11.2 H (1.3-7.7) k/uL Creatinine 0.55 L (0.66-1.25) mg/dL Glucose 122 H (74-99) mg/dL POC Glucose (mg/dL) 105 H (75-99) mg/dL Calcium 7.6 L (8.4-10.2) mg/dL 06/21/17 Range/Units 06:36 WBC (3.8-10.6) k/uL RBC (4.30-5.90) m/uL Hgb (13.0-17.5) gm/dL Hct (39.0-53.0) % Plt Count (150-450) k/uL Neutrophils # (1.3-7.7) k/uL Creatinine (0.66-1.25) mg/dL Glucose (74-99) mg/dL POC Glucose (mg/dL) 124 H (75-99) mg/dL Calcium (8.4-10.2) mg/dL Microbiology - Last 24 Hours (Table) 06/17/17 14:20 Gram Stain - Final Abdomen Wound Culture - Final Escherichia coli Enterococcus faecium Lynette krusei 06/18/17 09:19 Blood Culture - Preliminary Blood No Growth after 48 hours Assessment and Plan (1) Diverticular disease of intestine with perforation and abscess Narrative/Plan: 41-year-old male with diverticulitis and abscess formation, POD #4 Ex Lap, Braden's procedure - Clamp NG tube, trial of clear liquid diet, possible removal today of NG tube - Pain mgmt - Continue antibiotics, appreciate infectious disease recommendations - Increase activity - DVT prophylaxis Current Visit: Yes Status: Acute Code(s): K57.80 - DVTRCLI OF INTEST, PART UNSP, W PERF AND ABSCESS W/O BLEED SNOMED Code(s): 651035566
[2017-06-21] MEDS: MVI, ADULT NO.4 WITH VIT K 10 ML, TRACE (CONC-1ML/DOSE) 1 ML in AMIN 2.4%/DEX 6.8%/LIPI... IV SCH ×3 (08:20)
[2017-06-21 11:49] LABS: Glucose,Whole Blood 87 mg/dL (75-99)
[2017-06-21] MEDS: DAPTOMYCIN IVPB SCH (16:20)
[2017-06-21] MEDS: SODIUM CHLORIDE 0.9% IVPB SCH (16:20)
[2017-06-21 18:19] LABS: Glucose,Whole Blood 156 mg/dL (75-99)
[2017-06-21] MEDS: MICAFUNGIN 100 MG in SODIUM CHLORIDE 0.9% 100 ML IVPB SCH (21:33)
--- NOTE | 2017-06-21 23:16 | PN ---
PROGRESS NOTE DATE OF SERVICE: 06/21/2017 REASON FOR FOLLOW UP: Pelvic abscess. INTERVAL HISTORY: The patient is afebrile. His NG has been discontinued. Did have some output in his colostomy bag. Denies any chest pain, shortness of breath, cough. No nausea, vomiting, or abdominal pain. PHYSICAL EXAMINATION: Blood pressure 133/84 with a pulse of 83, temperature of 99.6. He is 92% on room air. General description is a middle-aged male lying in bed in no distress. Respiratory system: Unlabored breathing. Clear to auscultation anteriorly. Heart S1, S2. Regular rate and rhythm. Abdomen soft, with some output in his colostomy bag. EXTREMITIES: No edema of the feet. LABS: Hemoglobin is 10.8, white count 13.5 with a BUN of 9, creatinine 0.55. DIAGNOSTIC IMPRESSION AND PLAN: Patient with Microbial abdominal abscess from ruptured diverticulitis, status post drainage of the abscess and diverting colostomy. Cultures have been positive for E coli . vancomycin of enterococcus the patient is currently on Zosyn and daptomycin. Flagyl and Micafungin will be continued. We will get a PICC line on Friday for outpatient IV antibiotic therapy. Continue supportive care. MMODL / IJN: [id number] /
[2017-06-22] LABS: Glucose,Whole Blood 128 mg/dL (75-99)
[2017-06-22] MEDS: INSULIN ASPART 100 UNIT/ML 1 ML 10 ML VIAL SQ SCH ×4 (00:17→18:08)
[2017-06-22] MEDS: metroNIDAZOLE-NS PMX 500 MG in SALINE 1 100ML.BAG IVPB SCH ×3 (02:17→16:58)
[2017-06-22] MEDS: LACTATED RINGERS 1,000 ML IV SCH ×8 (02:17→21:00)
[2017-06-22] MEDS: METOCLOPRAMIDE 5 MG/ML 2 ML VIAL IVP SCH ×3 (02:19→12:57)
[2017-06-22] MEDS: HEPARIN SODIUM,PORCINE 5,000 UNIT/ML 1 ML VIAL SQ SCH ×4 (02:20→22:11)
[2017-06-22] MEDS: PIPERACILLIN-TAZOBACTAM 3.375 GM in DEXTROSE/WATER 1 50ML.BAG IVPB SCH ×3 (02:22→15:11)
[2017-06-22] MEDS: MORPHINE SULFATE/PF 10MG/10ML VL IV PRN (05:30)
[2017-06-22 05:36] LABS: Glucose,Whole Blood 129 mg/dL (75-99)
[2017-06-22 07:01] LABS: Glucose,Whole Blood 136 mg/dL (75-99)
[2017-06-22 07:22] LABS: HGB 11.3 gm/dL (13.0-17.5); Hypochromasia Slight; MCH 32.2 pg (25.0-35.0); MCHC 35.3 g/dL (31.0-37.0); MCV 91.1 fL (80.0-100.0); Mean Platelet Volume 7.2; Platelet Count 482 k/uL (150-450); Poikilocytosis Slight; RBC 3.51 m/uL (4.30-5.90); RDW 14.4 % (11.5-15.5); WBC 11.6 k/uL (3.8-10.6)
[2017-06-22 08:07] LABS: Anisocytosis (M) Present; Band Neutrophils % 5 %; Eosinophils # (M) 0.35 k/uL (0-0.7); Lymphocytes # (M) 2.09 k/uL (1.0-4.8); Metamyelocytes # (M) 0.58 k/uL (0); Metamyelocytes % 5 %; Monocytes # (M) 0.23 k/uL (0-1.0); Myelocytes # (M) 0.12 k/uL (0); Myelocytes % 1 %; Neutrophils % (M) 68 %; Nucleated Red Blood Cells 0 /100 WBC (0-0); Polychromasia Present; Total Cells Counted 200
[2017-06-22] MEDS: MVI, ADULT NO.4 WITH VIT K 10 ML, TRACE (CONC-1ML/DOSE) 1 ML in AMIN 2.4%/DEX 6.8%/LIPI... IV SCH ×9 (08:08→14:59)
[2017-06-22 08:27] LABS: Anion Gap 8 mmol/L; Blood Urea Nitrogen 8 mg/dL (9-20); Calcium 7.8 mg/dL (8.4-10.2); Carbon Dioxide 24 mmol/L (22-30); Chloride 109 mmol/L (98-107); Glucose 133 mg/dL (74-99); Magnesium 2.1 mg/dL (1.6-2.3); Phosphorus 3.5 mg/dL (2.5-4.5); Potassium 4.1 mmol/L (3.5-5.1); Sodium 141 mmol/L (137-145)
[2017-06-22] MEDS: HYDROcodone/APAP 5-325MG 1 EACH TAB PO PRN ×2 (08:33→14:19)
[2017-06-22] MEDS: DAPTOMYCIN IVPB SCH (10:51)
[2017-06-22] MEDS: SODIUM CHLORIDE 0.9% IVPB SCH (10:51)
[2017-06-22 11:08] LABS: Glucose,Whole Blood 132 mg/dL (75-99)
[2017-06-22] MEDS: PANTOPRAZOLE 40 MG/10 ML VIAL IV SCH (11:22)
--- NOTE | 2017-06-22 13:15 | P.PN ---
Subjective Progress Note Date: 06/22/17 Patient seen and examined at bedside. He states he is feeling well today. He has ambulated. His ostomy is functioning. He denies any nausea and vomiting and is tolerating a clear liquid diet. He states that he does feel full quickly. Objective - Vital Signs Vital signs: Vital Signs Temp 97.9 F 06/22/17 08:27 Pulse 75 06/22/17 08:27 Resp 20 06/22/17 08:27 BP 146/86 06/22/17 08:27 Pulse Ox 95 06/22/17 08:27 Intake & Output 06/21/17 06/22/17 06/22/17 18:59 06:59 18:59 Intake Total 1930 Output Total 350 450 200 Balance -350 1481 -200 Weight 140 kg Intake: Intake, IV Titration 1930 Amount Mvi, Adult No.4 with Vit 193 K 10 ml Trace (Conc-1Ml/ Dose) 1 ml In Raygoza 2.4%/ Dex 6.8%/Lipid/Lytes 1, 920 ml @ 110 mls/hr IV . [id number] [facility] Rx#:[id number] Output: Urine 250 250 Stool 100 200 200 Other: Voiding Method Urinal Urinal # Voids 1 1 - Constitutional General appearance: Present: cooperative - EENT Eyes: Present: PERRLA ENT: Present: hearing grossly normal - Respiratory Details: No difficulty with respiration - Gastrointestinal Gastrointestinal Comment(s): Soft, appropriate tenderness, nondistended, no rebound, no guarding, incision site is clean, dry and intact, ANTIONE drain is in place with 0 single is supple, ostomy is pink and patent and functioning - Musculoskeletal Musculoskeletal: Present: generalized weakness - Psychiatric Psychiatric: Present: A&O x's 3 - Labs CBC & Chem 7: 06/22/17 06:45 06/22/17 08:06 Labs: Abnormal Lab Results - Last 24 Hours (Table) 06/21/17 06/21/17 06/22/17 Range/Units 18:14 23:58 05:33 WBC (3.8-10.6) k/uL RBC (4.30-5.90) m/uL Hgb (13.0-17.5) gm/dL Hct (39.0-53.0) % Plt Count (150-450) k/uL Neutrophils # (Manual) (1.3-7.7) k/uL Metamyelocytes # (Man) (0) k/uL Myelocytes # (Manual) (0) k/uL Chloride (98-107) mmol/L BUN (9-20) mg/dL Creatinine (0.66-1.25) mg/dL Glucose (74-99) mg/dL POC Glucose (mg/dL) 156 H 128 H 129 H (75-99) mg/dL Calcium (8.4-10.2) mg/dL 06/22/17 06/22/17 06/22/17 Range/Units 06:45 06:52 08:06 WBC 11.6 H (3.8-10.6) k/uL RBC 3.51 L (4.30-5.90) m/uL Hgb 11.3 L (13.0-17.5) gm/dL Hct 32.0 L (39.0-53.0) % Plt Count 482 H (150-450) k/uL Neutrophils # (Manual) 8.40 H (1.3-7.7) k/uL Metamyelocytes # (Man) 0.58 H (0) k/uL Myelocytes # (Manual) 0.12 H (0) k/uL Chloride 109 H (98-107) mmol/L BUN 8 L (9-20) mg/dL Creatinine 0.58 L (0.66-1.25) mg/dL Glucose 133 H (74-99) mg/dL POC Glucose (mg/dL) 136 H (75-99) mg/dL Calcium 7.8 L (8.4-10.2) mg/dL 06/22/17 Range/Units 10:58 WBC (3.8-10.6) k/uL RBC (4.30-5.90) m/uL Hgb (13.0-17.5) gm/dL Hct (39.0-53.0) % Plt Count (150-450) k/uL Neutrophils # (Manual) (1.3-7.7) k/uL Metamyelocytes # (Man) (0) k/uL Myelocytes # (Manual) (0) k/uL Chloride (98-107) mmol/L BUN (9-20) mg/dL Creatinine (0.66-1.25) mg/dL Glucose (74-99) mg/dL POC Glucose (mg/dL) 132 H (75-99) mg/dL Calcium (8.4-10.2) mg/dL Microbiology - Last 24 Hours (Table) 06/18/17 09:19 Blood Culture - Preliminary Blood No Growth after 96 hours 06/17/17 14:20 Anaerobic Culture - Final Abdominal Fluid Assessment and Plan (1) Diverticular disease of intestine with perforation and abscess Narrative/Plan: 41-year-old male with diverticulitis and abscess formation, POD #5 Ex Lap, Braden's procedure - Tolerating a clear liquid diet, will advance to full liquid diet - Decreased rate of TPN as patient continues to advance diet - Pain mgmt - Continue antibiotics, appreciate infectious disease recommendations, plan for PICC for outpatient antibiotics - Increase activity - DVT prophylaxis - Discharge planning Current Visit: Yes Status: Acute Code(s): K57.80 - DVTRCLI OF INTEST, PART UNSP, W PERF AND ABSCESS W/O BLEED SNOMED Code(s): 301756356
[2017-06-22 17:08] LABS: Glucose,Whole Blood 102 mg/dL (75-99)
[2017-06-22] MEDS: MICAFUNGIN 100 MG in SODIUM CHLORIDE 0.9% 100 ML IVPB SCH (20:45)
[2017-06-22] MEDS: MORPHINE SULF 5MG/10ML VL IV PRN (22:09)
--- NOTE | 2017-06-22 23:15 | PN ---
PROGRESS NOTE DATE OF SERVICE: 06/22/2017. REASON FOR FOLLOWUP: Abdominal abscess from a perforated diverticulitis. INTERVAL HISTORY: The patient is currently afebrile. He is breathing comfortably. Denies having any chest pain, shortness of breath, cough. Abdominal pain has improved. Did have output in his colostomy bag. EXAMINATION: Blood pressure 140/90 with a pulse of 85, temperature 97.6. He is 96% on room air. General description is a middle-aged male lying in bed in no distress. Respiratory system: Unlabored breathing. Clear to auscultation anteriorly. Heart S1, S2. Regular rate and rhythm. Abdomen soft, no tenderness. LABS: White count 11.6, BUN of 8, creatinine 0.58. DIAGNOSTIC IMPRESSION AND PLAN: Patient with polymicrobial abdominal abscess from perforated diverticulitis. Currently on the Zosyn, Flagyl, Daptomycin and micafungin and planning getting a PICC line to continue with micafungin and the Zosyn and Flagyl will be switched to p.o. Cipro and Flagyl. Continue supportive care. MMODL / IJN: [id number] /
[2017-06-23 00:10] LABS: Glucose,Whole Blood 92 mg/dL (75-99)
[2017-06-23] MEDS: metroNIDAZOLE-NS PMX 500 MG in SALINE 1 100ML.BAG IVPB SCH ×2 (00:39→08:56)
[2017-06-23] MEDS: INSULIN ASPART 100 UNIT/ML 1 ML 10 ML VIAL SQ SCH ×4 (00:53→17:34)
[2017-06-23] MEDS: PIPERACILLIN-TAZOBACTAM 3.375 GM in DEXTROSE/WATER 1 50ML.BAG IVPB SCH ×3 (01:27→15:48)
[2017-06-23] MEDS: HYDROcodone/APAP 5-325MG 1 EACH TAB PO PRN ×2 (03:29→18:17)
[2017-06-23] MEDS: MORPHINE SULF 5MG/10ML VL IV PRN ×3 (05:41→21:36)
[2017-06-23 05:48] LABS: Glucose,Whole Blood 116 mg/dL (75-99)
[2017-06-23 07:01] LABS: HCT 34.7 % (39.0-53.0); HGB 11.4 gm/dL (13.0-17.5); MCHC 32.9 g/dL (31.0-37.0); MCV 88.1 fL (80.0-100.0); Mean Platelet Volume 7.5; Platelet Count 476 k/uL (150-450); Poikilocytosis Slight; RBC 3.94 m/uL (4.30-5.90); RDW 14.9 % (11.5-15.5); WBC 12.7 k/uL (3.8-10.6)
[2017-06-23 07:09] LABS: Anion Gap 8 mmol/L; Blood Urea Nitrogen 9 mg/dL (9-20); Calcium 8.1 mg/dL (8.4-10.2); Carbon Dioxide 23 mmol/L (22-30); Chloride 107 mmol/L (98-107); Glucose 113 mg/dL (74-99); Potassium 4.5 mmol/L (3.5-5.1); Sodium 138 mmol/L (137-145)
[2017-06-23 08:17] LABS: Band Neutrophils % 3 %; Eosinophils # (M) 0.38 k/uL (0-0.7); Lymphocytes # (M) 1.02 k/uL (1.0-4.8); Monocytes # (M) 0.64 k/uL (0-1.0); Myelocytes # (M) 0.13 k/uL (0); Myelocytes % 1 %; Neutrophils % (M) 82 %; Nucleated Red Blood Cells 0 /100 WBC (0-0); Total Cells Counted 200
[2017-06-23 08:21] LABS: Anisocytosis (M) Present; Polychromasia Present
[2017-06-23] MEDS: PANTOPRAZOLE 40 MG/10 ML VIAL IV SCH (09:02)
--- NOTE | 2017-06-23 09:08 | P.PN ---
Subjective Progress Note Date: 06/23/17 Patient seen and examined at bedside. States he is feeling much better. Appetite was decreased after decreasing rate of PPN. Ambulating. Afebrile overnight. Objective - Vital Signs Vital signs: Vital Signs Temp 98.4 F 06/23/17 08:55 Pulse 74 06/23/17 08:55 Resp 14 06/23/17 08:55 BP 135/82 06/23/17 08:55 Pulse Ox 94 L 06/23/17 08:55 Intake & Output 06/22/17 06/23/17 06/23/17 18:59 06:59 18:59 Intake Total 150 Output Total 200 200 Balance -50 -200 Weight 125 kg Intake: Oral 150 Output: Stool 200 200 Other: Voiding Method Urinal Urinal - Constitutional General appearance: Present: cooperative, no acute distress - EENT ENT: Present: hearing grossly normal - Respiratory Details: No difficulty with respiration - Gastrointestinal Gastrointestinal Comment(s): Soft, appropriate tenderness, nondistended, no rebound, no guarding ostomy pink and patent, there is some drainage from the midline incision - Psychiatric Psychiatric: Present: A&O x's 3 - Labs CBC & Chem 7: 06/23/17 06:34 06/23/17 06:34 Labs: Abnormal Lab Results - Last 24 Hours (Table) 06/22/17 06/22/17 06/23/17 Range/Units 10:58 16:59 05:45 WBC (3.8-10.6) k/uL RBC (4.30-5.90) m/uL Hgb (13.0-17.5) gm/dL Hct (39.0-53.0) % Plt Count (150-450) k/uL Neutrophils # (Manual) (1.3-7.7) k/uL Myelocytes # (Manual) (0) k/uL Creatinine (0.66-1.25) mg/dL Glucose (74-99) mg/dL POC Glucose (mg/dL) 132 H 102 H 116 H (75-99) mg/dL Calcium (8.4-10.2) mg/dL 06/23/17 06/23/17 Range/Units 06:34 06:34 WBC 12.7 H (3.8-10.6) k/uL RBC 3.94 L (4.30-5.90) m/uL Hgb 11.4 L (13.0-17.5) gm/dL Hct 34.7 L (39.0-53.0) % Plt Count 476 H (150-450) k/uL Neutrophils # (Manual) 10.70 H (1.3-7.7) k/uL Myelocytes # (Manual) 0.13 H (0) k/uL Creatinine 0.61 L (0.66-1.25) mg/dL Glucose 113 H (74-99) mg/dL POC Glucose (mg/dL) (75-99) mg/dL Calcium 8.1 L (8.4-10.2) mg/dL Microbiology - Last 24 Hours (Table) 06/18/17 09:19 Blood Culture - Preliminary Blood No Growth after 96 hours Assessment and Plan (1) Diverticular disease of intestine with perforation and abscess Narrative/Plan: 41-year-old male with diverticulitis and abscess formation, POD #6 Ex Lap, Braden's procedure - Advance to soft diet -We will make this the last bag of PPN that the patient will have - Protein supplements - Pain mgmt - Drainage from midline, 2 chiki were removed with fluid drainage. Continue dressing changes over this site. - Continue antibiotics, appreciate infectious disease recommendations, plan for PICC for outpatient antibiotics - Increase activity - DVT prophylaxis - Discharge planning Current Visit: Yes Status: Acute Code(s): K57.80 - DVTRCLI OF INTEST, PART UNSP, W PERF AND ABSCESS W/O BLEED SNOMED Code(s): 919825897
[2017-06-23] MEDS ORDERED: LIDOCAINE 2% INJ 20 MG/ML (20 ML MDV) ONE (09:46)
[2017-06-23] MEDS ORDERED: LIDOCAINE 2% INJ 20 MG/ML SQ ONE (10:02)
[2017-06-23] MEDS: HEPARIN SODIUM,PORCINE 5,000 UNIT/ML 1 ML VIAL SQ SCH ×2 (10:31→15:47)
[2017-06-23] MEDS: DAPTOMYCIN IVPB SCH (10:32)
[2017-06-23] MEDS: SODIUM CHLORIDE 0.9% IVPB SCH (10:32)
--- NOTE | 2017-06-23 11:11 | IR ---
PICC LINE PLACEMENT: HISTORY: Infection requiring long-term antibiotic therapy and TPN PROCEDURE: Ultrasound and fluoroscopic guidance of PICC line placement. COMPLICATIONS: None ANESTHESIA: 1. 1% Lidocaine locally. FINDINGS/TECHNIQUE: The procedure was explained to the patient. The risks, complications, benefits and alternatives were discussed and any questions were answered. Informed consent was obtained. The patient was placed supine on the fluoroscopic table and prepped and draped in the usual sterile formerly [facility] ion. Utilizing a 21 gauge needle and sonographic and fluoroscopic guidance, access in the vein was achieved and there is placement of a 0.018 guidewire. The vein is patent. A 5-Fr sheath was placed over the guidewire. The guidewire and dilator were removed and a 5-F. Double lumen PICC line was pl aced through the sheath with the tip at the level of the SVC. The sheath was removed, the catheter w as flushed and sutured into position. The patient was stable throughout the procedure and remained s table upon discharge from the Department of Radiology. The vein puncture was patent under ultrasound. A evans scale image was obtained to document patency of the vein punctured. All elements of the maximal barrier technique were utilized. FLUOROSCOPY TIME: 0.2 minutes, one image submitted IMPRESSION: Successful PICC double lumen line placement under ultrasound and fluoroscopic guidance.
[2017-06-23] MEDS: LACTATED RINGERS 1,000 ML IV SCH ×2 (11:16→21:31)
[2017-06-23 11:17] VITALS: BMI 40.6
[2017-06-23 11:34] LABS: Glucose,Whole Blood 121 mg/dL (75-99)
[2017-06-23] MEDS: MVI, ADULT NO.4 WITH VIT K 10 ML, TRACE (CONC-1ML/DOSE) 1 ML in AMIN 2.4%/DEX 6.8%/LIPI... IV SCH ×3 (13:08)
[2017-06-23] MEDS: metroNIDAZOLE 500 MG TAB PO SCH (15:48)
[2017-06-23 17:26] LABS: Glucose,Whole Blood 110 mg/dL (75-99)
--- NOTE | 2017-06-23 20:34 | PN ---
PROGRESS NOTE DATE OF SERVICE: 06/23/2017 REASON FOR FOLLOWUP: Abdominal abscess. INTERVAL HISTORY: The patient is afebrile. He is breathing comfortably. This morning he was noted to have drainage of some purulent material, more of a hematoma. Patient denies having any chest pain, shortness of breath or cough. Did have output in his colostomy bag. PHYSICAL EXAMINATION: Blood pressure is 135/82 with a pulse of 74, temperature 98.4. He is 94% on room air. General description is a middle-aged male lying in bed in no distress. RESPIRATORY SYSTEM: Unlabored breathing. Clear to auscultation anteriorly. HEART: S1, S2. Regular rate and rhythm. ABDOMEN: Soft. There is no tenderness. LABS: Hemoglobin 11.4, white count 12.7 with a BUN of 9, creatinine 0.61. DIAGNOSTIC IMPRESSION AND PLAN: Patient with polymicrobial abdominal abscess from perforated diverticulitis, status post diverting colostomy. Currently covered with daptomycin, Zosyn, Flagyl and micafungin in view of the multiple pathogens grown. We will be planning on daptomycin and micafungin in the outpatient setting in addition to the oral Cipro and Flagyl for another 10 days to 2 weeks. Plan of care was discussed with the surgeon. Continue with supportive care. MMODL / IJN: [id number] /
[2017-06-23] MEDS: MICAFUNGIN 100 MG in SODIUM CHLORIDE 0.9% 100 ML IVPB SCH (21:30)
[2017-06-24] MEDS: HYDROcodone/APAP 5-325MG 1 EACH TAB PO PRN ×4 (00:42→20:44)
[2017-06-24] MEDS: HEPARIN SODIUM,PORCINE 5,000 UNIT/ML 1 ML VIAL SQ SCH ×3 (00:43→17:31)
[2017-06-24] MEDS: metroNIDAZOLE 500 MG TAB PO SCH ×3 (00:43→17:31)
[2017-06-24] MEDS: PIPERACILLIN-TAZOBACTAM 3.375 GM in DEXTROSE/WATER 1 50ML.BAG IVPB SCH ×3 (00:43→17:31)
[2017-06-24 07:48] LABS: Basophils # (A) 0.1 k/uL (0-0.2); Basophils % (A) 1 %; Eosinophils # (A) 0.3 k/uL (0-0.7); Eosinophils % (A) 2 %; HCT 35.3 % (39.0-53.0); HGB 11.2 gm/dL (13.0-17.5); Hypochromasia Slight; Lymphocytes # (A) 1.7 k/uL (1.0-4.8); Lymphocytes % (A) 15 %; MCH 28.5 pg (25.0-35.0); MCHC 31.7 g/dL (31.0-37.0); MCV 89.7 fL (80.0-100.0); Mean Platelet Volume 7.3; Monocytes # (A) 0.5 k/uL (0-1.0); Monocytes % (A) 4 %; Neutrophils # (A) 8.6 k/uL (1.3-7.7); Neutrophils % (A) 77 %; Platelet Count 435 k/uL (150-450); RBC 3.93 m/uL (4.30-5.90); RDW 14.7 % (11.5-15.5); WBC 11.1 k/uL (3.8-10.6)
[2017-06-24 07:57] LABS: Ionized Calcium 4.8 mg/dL (4.5-5.3)
[2017-06-24 08:01] LABS: Anion Gap 9 mmol/L; Blood Urea Nitrogen 11 mg/dL (9-20); Calcium 8.2 mg/dL (8.4-10.2); Carbon Dioxide 23 mmol/L (22-30); Chloride 108 mmol/L (98-107); Glucose 87 mg/dL (74-99); Magnesium 1.9 mg/dL (1.6-2.3); Potassium 4.7 mmol/L (3.5-5.1); Sodium 140 mmol/L (137-145)
[2017-06-24] MEDS: DAPTOMYCIN IVPB SCH (08:48)
[2017-06-24] MEDS: SODIUM CHLORIDE 0.9% IVPB SCH (08:48)
--- NOTE | 2017-06-24 09:58 | CDI ---
Last Revision, February 2017 Documentation Clarification Form Date: 06/24/17 From: Tiffany Thayer RN,CCD Admit Date: 06/10/2017 12:27:00 AM Patient Name: Faheem Bautista Visit Number: [id number] Discharge Date: ATTENTION: The Clinical Documentation Specialists (CDI) and [facility] Coding Staff appreciate your assistance in clarifying documentation. Please respond to the clarification below the line at the bottom and electronically sign. The CDI & [facility] Coding staff will review the response and follow-up if needed. Please note: Queries are made part of the Legal Health Record. If you have any questions, please contact the author of this message via ITS. Dr. Lanie Kurtz 06/11/17 ID (Dr. Pan) consult impression: Patient with sepsis admitted to the hospital with significant abdominal pain. the patient did have a fever of 101 degrees Fahrenheit, did have tachycardia, heart rate 102 to 108 along with elevated white count of 15,000, meeting criteria for systemic inflammatory response syndrome/sepsis source is the pelvic abscess, likely from a ruptured diverticulitis. History/Risk Factors: No reported history, current every day smoker Clinical Indicators: Complains of abdominal pain. CT of abdomen with pelvic abscess, likely from diverticulitis, with intraperitoneal free air. WBC/Left Shift 15.2 Lactic acid: 1.9 Blood cultures: No growth Vitals signs on admission: 196/83 113 20 100.6 Other Clinical Indicators: ED evaluation: 06/10/17 00.29: At this time patient does meet sepsis criteria. Diverticular disease of the intestine with perforation and abscess. Treatment: Zosyn IV, 06/10/17 CT IR: drainage of abscess 06/17/17 exploratory laparotomy, Sigmoid colectomy End ostomy creation ID Consult: See above IV Fluid Diflucan IV Flagyl IV MS IV PRN, TPN In your professional opinion, please clarify if these findings signify one of the following conditions, whether the condition is POA, and cause, if known: Condition Sepsis ruled out Sepsis Severe Sepsis Septic Shock Other, please specify Unable to determine Present on Admission: Yes No Identify the (suspected) organism Please continue to document in your progress notes and discharge summary in order to capture severity of illness and risk of mortality. Include clinical findings that support your diagnosis. The patient did have sepsis on admission. This is evident by an intra- abdominal abscess, leukocytosis, tachycardia, fever MTDD
--- NOTE | 2017-06-24 10:03 | CDI ---
Last Revision, February 2017 Documentation Clarification Form Date: 06/24/17 From: Tiffany Thayer RN,CCDS Admit Date: 06/10/2017 12:27:00 AM Patient Name: Faheem Bautista Visit Number: [id number] Discharge Date: ATTENTION: The Clinical Documentation Specialists (CDI) and [facility] Coding Staff appreciate your assistance in clarifying documentation. Please respond to the clarification below the line at the bottom and electronically sign. The CDI & [facility] Coding staff will review the response and follow-up if needed. Please note: Queries are made part of the Legal Health Record. If you have any questions, please contact the author of this message via ITS. Dr. Lanie Humphries, will place NGT with likely Ileus is documented in the progress note on 06/18/17 . Patients Admitting Diagnosis: Diverticulitis with perforation and abscess Post-Operative Diagnosis: Diverticulitis with perforation and intra-abdominal abscess Procedure performed: Exploratory laparotomy, Sigmoid colectomy, End ostomy creation History/Risk Factors: Diverticulitis Clinical Indicators: States he is nauseous. He has not had emesis, He has not ambulated since surgery. His abdomen is soft, appropriate tenderness, Mild distention, no rebound, no guarding, ostomy patient-no significant output. Treatment: NGT Keep NPO with ice chips Pain management In order to accurately reflect this patients severity of illness, please clarify if the Ileus diagnosis is: An expected post-procedural or post-surgical condition; Integral to the procedure; Inherent to the procedure; An unexpected post-procedural or post-surgical condition related to surgical care; Other, please specify Unable to determine Please continue to document in your progress notes and discharge summary in order to capture severity of illness and risk of mortality. Include clinical findings that support your diagnosis. _The patient did have a diagnosis of ileus secondary to intra-abdominal abscess and abdominal surgery. This is an expected postprocedural condition. He was treated with an NG tube and Nothing by mouth for his treatment. MTDD
--- NOTE | 2017-06-24 10:10 | P.PN ---
Subjective Progress Note Date: 06/24/17 Patient seen and examined at bedside. Doing well. Ambulating. Continues to have bowel function with ostomy. Drainage from incision minimal. Objective - Vital Signs Vital signs: Vital Signs Temp 98.0 F 06/24/17 07:00 Pulse 78 06/24/17 07:00 Resp 16 06/24/17 07:00 BP 128/80 06/24/17 07:00 Pulse Ox 95 06/24/17 07:00 Intake & Output 06/23/17 06/24/17 06/24/17 18:59 06:59 18:59 Intake Total 400 100 Output Total 300 1400 600 Balance -300 -1000 -500 Weight 125 kg Intake: Oral 400 100 Output: Urine 825 600 Stool 300 500 Emesis 75 Other: # Voids 1 2 - Constitutional General appearance: Present: cooperative - EENT Eyes: Present: PERRLA ENT: Present: hearing grossly normal - Respiratory Details: No difficulty with respiration - Gastrointestinal Gastrointestinal Comment(s): Soft, appropriate tenderness, nondistended, no rebound, no guarding, ostomy pink and patent with output - Psychiatric Psychiatric: Present: A&O x's 3 - Labs CBC & Chem 7: 06/24/17 06:52 06/24/17 06:52 Labs: Abnormal Lab Results - Last 24 Hours (Table) 06/23/17 06/23/17 06/24/17 Range/Units 11:31 17:24 06:52 WBC 11.1 H (3.8-10.6) k/uL RBC 3.93 L (4.30-5.90) m/uL Hgb 11.2 L (13.0-17.5) gm/dL Hct 35.3 L (39.0-53.0) % Neutrophils # 8.6 H (1.3-7.7) k/uL Chloride (98-107) mmol/L POC Glucose (mg/dL) 121 H 110 H (75-99) mg/dL Calcium (8.4-10.2) mg/dL 06/24/17 Range/Units 06:52 WBC (3.8-10.6) k/uL RBC (4.30-5.90) m/uL Hgb (13.0-17.5) gm/dL Hct (39.0-53.0) % Neutrophils # (1.3-7.7) k/uL Chloride 108 H (98-107) mmol/L POC Glucose (mg/dL) (75-99) mg/dL Calcium 8.2 L (8.4-10.2) mg/dL Microbiology - Last 24 Hours (Table) 06/18/17 09:19 Blood Culture - Preliminary Blood No Growth after 120 hours Assessment and Plan (1) Diverticular disease of intestine with perforation and abscess Narrative/Plan: 41-year-old male with diverticulitis and abscess formation, POD Ex Lap, Braden's procedure -Continue soft diet - Protein supplements - Pain mgmt - Continue dressing changes over midline incision site. - Continue antibiotics, appreciate infectious disease recommendations, PICC for outpatient antibiotics - Increase activity - DVT prophylaxis - Discharge in 24 hours Current Visit: Yes Status: Acute Code(s): K57.80 - DVTRCLI OF INTEST, PART UNSP, W PERF AND ABSCESS W/O BLEED SNOMED Code(s): 787832802
[2017-06-24] MEDS ORDERED: MORPHINE SULFATE 4MG/4ML SYRG IV PRN (14:18)
[2017-06-24] MEDS: PANTOPRAZOLE 40 MG/10 ML VIAL IV SCH (17:42)
[2017-06-24] MEDS: MICAFUNGIN 100 MG in SODIUM CHLORIDE 0.9% 100 ML IVPB SCH (20:56)
--- NOTE | 2017-06-24 21:56 | PN ---
PROGRESS NOTE DATE OF SERVICE: 06/24/2017 REASON FOR FOLLOWUP: Abdominal abscess, polymicrobial. INTERVAL HISTORY: The patient is afebrile, has been breathing comfortably. Denies having any chest pain, shortness of breath or cough. No abdominal pain. No sign of drainage from the incision. PHYSICAL EXAMINATION: Blood pressure 134/88 with a pulse of 79, temperature 97. He is 96% on room air. General description is a middle-aged male lying in bed in no distress. RESPIRATORY SYSTEM: Unlabored breathing. Clear to auscultation anteriorly. HEART: S1, S2. Regular rate and rhythm. ABDOMEN: Soft. Incision with no drainage. Colostomy did have some soft stool. EXTREMITIES: No edema of the feet. LABS: Hemoglobin 11.3, white count 11.4 with a BUN of 11, creatinine 0.69. DIAGNOSTIC IMPRESSION AND PLAN: Patient with polymicrobial abdominal abscess from a perforated diverticulitis, status post diverting colostomy. In view of the multiple pathogens he has grown, in addition to Lynette krusei, currently he is on daptomycin, Zosyn, micafungin and Flagyl. We will be transitioning him to oral Cipro and Flagyl in addition to the daptomycin and the micafungin for another 10 days to 2 weeks. Prescriptions were provided to the case management rn. Once the antibiotics are arranged, he will be able to go home from ID standpoint. MMODL / IJN: [id number] /
[2017-06-25] MEDS: PIPERACILLIN-TAZOBACTAM 3.375 GM in DEXTROSE/WATER 1 50ML.BAG IVPB SCH ×2 (00:50→09:45)
[2017-06-25] MEDS: metroNIDAZOLE 500 MG TAB PO SCH ×2 (00:50→09:54)
[2017-06-25] MEDS: HEPARIN SODIUM,PORCINE 5,000 UNIT/ML 1 ML VIAL SQ SCH ×2 (00:50→09:54)
[2017-06-25] MEDS: HYDROcodone/APAP 5-325MG 1 EACH TAB PO PRN ×2 (02:23→08:23)
[2017-06-25] MEDS ORDERED: PANTOPRAZOLE 40 MG TABLET PO SCH (07:30)
[2017-06-25] MEDS: SODIUM CHLORIDE 0.9% IVPB SCH (09:45)
[2017-06-25] MEDS: DAPTOMYCIN IVPB SCH (09:45)
--- NOTE | 2017-06-25 11:25 | P.DS ---
Providers Date of admission: 06/10/17 00:27 Expected date of discharge: 06/25/17 Attending physician: Lanie Kurtz DO Consults: 06/10/17 16:42 Consult Physician Routine Consulting Provider: Eula Dowell Consult Reason/Comments: Diverticular abscess, s/p IR drain Do you want consulting provider notified?: Yes Primary care physician: [facility] Course: 41-year-old male who presented to the emergency room with a chief complaint of intermittent abdominal discomfort in the bilateral lower quadrant. Patient stated the pain had been ongoing for several months. Patient was evaluated by his primary care physician prior to coming in the emergency room and an ultrasound of the abdomen was performed showed no significant findings at that time. Patient stated that he did try to take pain medication to relieve the abdominal pain but no relief. Patient presented to the emergency room to be evaluated for the lower abdominal pain found to be tachycardic at that time CAT scan of the abdomen pelvis showed inflamed sigmoid colon with a likely peridiverticular abscess measuring 5.5 cm in the emergency room patient was given fluid resuscitation and started on antibiotics and that was a noted improvement in patient's tachycardia On June 17 patient underwent exploratory laparotomy sigmoid colectomy and ostomy creation for diverticulitis with perforation and abscess. Patient was followed by infectious disease. Patient was treated for polymicrobial abdominal abscess from perforated diverticulitis. Recommendations were for PICC line for 2 week duration of daptomycin and micafungin with a 2 week course of oral Cipro and Flagyl for 2 weeks Ostomy teaching was initiated. Ostomy was functioning at the time of discharge. The patient was clinically stable and appropriate proceed with a discharge Impression discharge diagnosis Present on admission diffuse abdominal pain suspect due to diverticulitis and abscess formation Exploratory laparotomy Braden's procedure sigmoid colectomy, and end ostomy creation for perforated diverticulitis Expected post surgical condition ileus resolved polymicrobial abdominal abscess The above impression and plan of care have been discussed and directed by signing physician. Nishi Mendoza nurse practitioner acting as scribe for signing physician. Patient Condition at Discharge: Stable Plan - Discharge Summary Discharge Rx Participant: Yes New Discharge Prescriptions: New Ciprofloxacin HCl [Cipro] 750 mg PO BID #28 tablet metroNIDAZOLE [Flagyl] 500 mg PO Q8HR #42 tab DAPTOmycin [Cubicin] 840 mg IVPB Q24HR vial HYDROcodone/APAP 5-325MG [[place] 5-325] 1 each PO Q6HR PRN #30 tab PRN Reason: Moderate Pain metroNIDAZOLE [Flagyl] 500 mg PO Q8HR tab Continue Ibuprofen [Motrin] 800 mg PO Q8H PRN PRN Reason: Pain Discharge Medication List Ibuprofen [Motrin] 800 mg PO Q8H PRN 06/09/17 [History] Ciprofloxacin HCl [Cipro] 750 mg PO BID #28 tablet 06/24/17 [Rx] metroNIDAZOLE [Flagyl] 500 mg PO Q8HR #42 tab 06/24/17 [Rx] DAPTOmycin [Cubicin] 840 mg IVPB Q24HR vial 06/25/17 [Rx] HYDROcodone/APAP 5-325MG [[place] 5-325] 1 each PO Q6HR PRN #30 tab 06/25/17 [Rx] metroNIDAZOLE [Flagyl] 500 mg PO Q8HR tab 06/25/17 [Rx] Follow up Appointment(s)/Referral(s): [facility], [NON-STAFF] - Isac Gong MD [Primary Care Provider] - 1-2 days Eula Dowell MD [STAFF PHYSICIAN] - 1 Week Lanie Kurtz DO [Doctor of Osteopathic Medicine] - 1 Week Patient Instructions/Handouts: Colostomy Care (DC), Colostomy Care (GEN) Activity/Diet/Wound Care/Special Instructions: Abdominal Incision care: Colostomy Care Instructions for discharge home: Last Colostomy appliance Change: 06.23.2017 Mr Bautista will have the following ostomy products for home from the Hospital three [employer] cut to fit #[id number] Pouches Four Olivia Seals (to fill in skin creases) Olivia seal to be applied in deep skin crease 3 to 9 oclock position Skin prep pads (12) Mr Bautista is to change the appliance every 3-5 days in the field sales manager Mr Bautista is to empty the pouch ostomy bag when it is 1/2 to 1/3 full in the bathroom either facing the toilet or sitting on the toilet Home health Mr Bautista will be receiving sample supplies from [employer] and [employer] [facility] [place] for use at home. Mr Bautista may also need to change to convex applaince vs flat barrier these sample supplies are being sent home w Mr Bautista as well. Home Health please assist Mr Bautista to be established with [employer] for disposable pouches in 2-3 weeks Note this Colososmty is temporary per Surgeon notes. lNo tub bath for six weeks. Shower daily. No lifting over 10 pounds for the next 6 weeks. May use ice packs to surgical site. No driving while taking narcotic for pain. Discharge Disposition: HOME WITH HOME HEALTH SERVICES
[2017-06-25] MEDS: MICAFUNGIN 100 MG in SODIUM CHLORIDE 0.9% 100 ML IVPB SCH (13:02)
--- NOTE | 2017-06-25 13:39 | PN ---
PROGRESS NOTE DATE OF SERVICE: 06/25/2017. REASON FOR FOLLOWUP: Abdominal abscess. INTERVAL HISTORY: The patient is afebrile. He is currently breathing comfortably. Denies having any chest pain, shortness of breath or cough. Abdominal pain improved. No nausea, vomiting. No further drainage from the abdominal wound. Did have output in his colostomy bag and had been tolerating a diet. PHYSICAL EXAMINATION: On examination, blood pressure 124/71 with a pulse of 89, temperature 98.1. He is 95% on room air. General description is a middle-aged male lying in bed in no distress. RESPIRATORY SYSTEM: Unlabored breathing, clear to auscultation anteriorly. HEART: S1, S2. Regular rate and rhythm. ABDOMEN: Soft. There is no tenderness. LABS: Hemoglobin 11.2, white count 11.1 with a BUN of 11, creatinine 0.69. DIAGNOSTIC IMPRESSION AND PLAN: Patient with abdominal abscess from a perforated diverticulitis, status post diverting colostomy as he failed the medical therapy. Did grow multiple pathogens from his cultures. Currently on daptomycin and micafungin will continue IV. Other antibiotic switched over Cipro and Flagyl for the same duration with a follow up in the office in 2 weeks. Continue supportive care. MMODL / IJN: [id number] /
[2017-06-25 14:50] VITALS: BP 143/87; PULSE 77; RESP 16; TEMP 98.4
== END 2017-06-25 15:16 | disposition home health service (06) | DRG 854 ==
LOC: EC 21:36 → 3SUR 06-10 00:27
PROVIDERS: ADMIT Surgery; ATTEND Surgery
PROC: 0Y953ZZ Drainage of Right Inguinal Region, Percutaneous Approach (ICD-10-PCS; 2017-06-10)
PROC: 0D1L0Z4 Bypass Transverse Colon to Cutaneous, Open Approach (ICD-10-PCS; 2017-06-17)
PROC: 02HV33Z Insertion of Infusion Device into Superior Vena Cava, Percutaneous Approach (ICD-10-PCS; 2017-06-17)
PROC: 0DTN0ZZ Resection of Sigmoid Colon, Open Approach (ICD-10-PCS; principal; 2017-06-17 10:30)
PROC: 3E0336Z Introduction of Nutritional Substance into Peripheral Vein, Percutaneous Approach (ICD-10-PCS; 2017-06-20)
DX: A41.9 Sepsis, unspecified organism (principal); K57.20 Diverticulitis of large intestine with perforation and abscess without bleeding; K56.7 Ileus, unspecified; K66.8 Other specified disorders of peritoneum; E66.01 Morbid (severe) obesity due to excess calories; G89.29 Other chronic pain; F17.210 Nicotine dependence, cigarettes, uncomplicated; B96.20 Unspecified Escherichia coli [E. coli] as the cause of diseases classified elsewhere; B95.2 Enterococcus as the cause of diseases classified elsewhere; Z68.41 Body mass index [BMI] 40.0-44.9, adult
CPT/HCPCS: 36415; 36569; 71275; 74177; 75989; 76937; 77001; 80048; 80053; 82150; 82330; 83036; 83605; 83690; 83735; 84100; 84478; 85025; 85379; 85610; 85730; 86850; 86900; 86901; 87040; 87070; 87075; 87077; 87186; 87205; 88307; 94760; 96361; 96365; 96375; 99285

== ENCOUNTER → 2017-06-09 | Outpatient (CLI) | payer BC ==
--- NOTE | 2017-06-09 09:24 | US ---
EXAMINATION TYPE: US abdomen complete DATE OF EXAM: 06/09/2017 COMPARISON: NONE CLINICAL HISTORY: R10.9 abdominal pain. Lower abdominal pain for 2 weeks. Indigestion. EXAM MEASUREMENTS: Liver Length: 20.8 cm Gallbladder Wall: 0.5 cm CBD: 0.5 cm Spleen: 15.9 cm Right Kidney: 12.1 x 5.3 x 5.7 cm Left Kidney: 14.1 x 5.0 x 5.7 cm Pancreas: Tail obscured by overlying bowel gas Liver: enlarged, attenuating, heterogeneous . Gallbladder: multiple shadowing stones, thickened GB wall Evidence for sonographic Brian's sign: no CBD: visualized portion appears wnl Spleen: enlarged Right Kidney: no evidence of hydronephrosis Left Kidney: Prominent in size. Lower pole appears somewhat bulky Upper IVC: wnl Abd Aorta: limited evaluation due to overlying bowel content IMPRESSION: 1. Hepatic hyperechoic echotexture most compatible with hepatic steatosis. This appears mild in degre e and limits evaluation for an underlying hepatic masses. 2. Splenomegaly. Correlation with CBC is recommended. 3. Cholelithiasis without sonographic evidence of acute cholecystitis.
== END | disposition home or self-care (01) ==
LOC: RADUSWWP 07:31
PROVIDERS: ATTEND Pediatrics
DX: K80.20 Calculus of gallbladder without cholecystitis without obstruction (principal); R16.2 Hepatomegaly with splenomegaly, not elsewhere classified; K76.0 Fatty (change of) liver, not elsewhere classified
CPT/HCPCS: 76700

== ENCOUNTER 2020-07-27 12:28 | Inpatient (IN) | payer BC, OTHER ==
[2020-07-27] MEDS ORDERED: SODIUM CHLORIDE 0.9% 1,000 ML IV STA (12:59)
--- NOTE | 2020-07-27 13:16 | ED ---
Abdominal Pain HPI - General Source: patient, RN notes reviewed Mode of arrival: ambulatory Limitations: no limitations <Keith Saul - Last Filed: 07/27/20 13:15> <Vikram Sams - Last Filed: 07/27/20 15:48> - General Chief Complaint: Abdominal Pain Stated Complaint: Side pain, Gallbladder pain Time Seen by Provider: 07/27/20 12:58 - History of Present Illness Initial Comments: This a 44-year-old male presents emergency Department chief complaint right- sided abdominal pain. Patient states started couple days ago on 10:00 at night. He states he eats morning states that it increasing pain after eating some [employer]. Patient was seen at urgent care and sent here for further evaluation. Patient's had a prior colon resection with colostomy and reversal by Dr. Kurtz for diverticulitis. Patient denies any recent fevers chills no vomiting diarrhea. No dysuria. Patient does have some slight nausea. (Keith Saul) - Related Data Home Medications Medication Instructions Recorded Confirmed Ibuprofen [Motrin] 800 mg PO Q8H PRN 06/09/17 06/09/17 Previous Rx's Medication Instructions Recorded Ciprofloxacin HCl [Cipro] 750 mg PO BID #28 tablet 06/24/17 metroNIDAZOLE [Flagyl] 500 mg PO Q8HR #42 tab 06/24/17 DAPTOmycin [Cubicin] 840 mg IVPB Q24HR vial 06/25/17 HYDROcodone/APAP 5-325MG [[place] 1 each PO Q6HR PRN #30 tab 06/25/17 5-325] metroNIDAZOLE [Flagyl] 500 mg PO Q8HR tab 06/25/17 Allergies Allergy/AdvReac Type Severity Reaction Status Date / Time No Known Allergies Allergy Verified 07/27/20 12:34 Review of Systems ROS Other: All systems not noted in ROS Statement are negative. <Keith Saul - Last Filed: 07/27/20 13:15> ROS Other: All systems not noted in ROS Statement are negative. <Vikram Sams - Last Filed: 07/27/20 15:48> ROS Statement: Those systems with pertinent positive or pertinent negative responses have been documented in the HPI. Past Medical History Past Medical History: No Reported History History of Any Multi-Drug Resistant Organisms: None Reported Past Surgical History: No Surgical Hx Reported Past Psychological History: No Psychological Hx Reported Smoking Status: Never smoker Past Alcohol Use History: Occasional Past Drug Use History: None Reported <DorysKeith Bing - Last Filed: 07/27/20 13:15> General Exam Limitations: no limitations General appearance: alert, in no apparent distress Head exam: Present: atraumatic, normocephalic, normal inspection Eye exam: Present: normal appearance, PERRL, EOMI. Absent: scleral icterus, conjunctival injection, periorbital swelling Neck exam: Present: normal inspection, full ROM. Absent: tenderness, meningismus, lymphadenopathy Respiratory exam: Present: normal lung sounds bilaterally. Absent: respiratory distress, wheezes, rales, rhonchi, stridor Cardiovascular Exam: Present: regular rate, normal rhythm, normal heart sounds. Absent: systolic murmur, diastolic murmur, rubs, gallop, clicks GI/Abdominal exam: Present: soft, tenderness (Moderate right upper quadrant), normal bowel sounds. Absent: distended, guarding, rebound, rigid Back exam: Absent: CVA tenderness (R), CVA tenderness (L) Neurological exam: Present: alert, oriented X3 Skin exam: Present: warm, dry, intact, normal color. Absent: rash <DorysKeith Smart - Last Filed: 07/27/20 13:15> Course Vital Signs 07/27/20 12:31 Temperature 98 F Pulse Rate 93 Respiratory 18 Rate Blood Pressure 175/104 O2 Sat by Pulse 98 Oximetry Medical Decision Making - Lab Data Result diagrams: 07/27/20 12:59 07/27/20 13:25 <Vikram Sams - Last Filed: 07/27/20 15:48> - Medical Decision Making Patient reevaluated by myself, Dr. Sams. Patient resting comfortably in bed. Patient states he is still having discomfort, actually getting worse. Patient provided additional pain medications. Patient updated on results and plan. Patient previously seen Dr. Kurtz. Case was discussed with him who will admit his patient. Secondary to elevated white blood cell count and questionable subjective fever patient will be started on antibiotics. (Vikram Sams) - Lab Data Lab Results 07/27/20 07/27/20 07/27/20 Range/Units 12:59 13:25 14:39 WBC 13.2 H (3.8-10.6) k/uL RBC 5.33 (4.30-5.90) m/uL Hgb 17.0 (13.0-17.5) gm/dL Hct 47.8 (39.0-53.0) % MCV 89.6 (80.0-100.0) fL MCH 31.8 (25.0-35.0) pg MCHC 35.5 (31.0-37.0) g/dL RDW 12.9 (11.5-15.5) % Plt Count 169 (150-450) k/uL MPV 9.2 Neutrophils % 82 % Lymphocytes % 9 % Monocytes % 6 % Eosinophils % 1 % Basophils % 0 % Neutrophils # 10.9 H (1.3-7.7) k/uL Lymphocytes # 1.2 (1.0-4.8) k/uL Monocytes # 0.8 (0-1.0) k/uL Eosinophils # 0.1 (0-0.7) k/uL Basophils # 0.1 (0-0.2) k/uL Sodium 134 L (137-145) mmol/L Potassium 4.1 (3.5-5.1) mmol/L Chloride 102 (98-107) mmol/L Carbon Dioxide 22 (22-30) mmol/L Anion Gap 10 mmol/L BUN 7 L (9-20) mg/dL Creatinine 0.50 L (0.66-1.25) mg/dL Est GFR (CKD-EPI)AfAm >90 (>60 ml/min/1.73 sqM) Est GFR (CKD-EPI)NonAf >90 (>60 ml/min/1.73 sqM) Glucose 345 H (74-99) mg/dL Calcium 8.9 (8.4-10.2) mg/dL Total Bilirubin 1.3 (0.2-1.3) mg/dL AST 23 (17-59) U/L ALT 47 (4-49) U/L Alkaline Phosphatase 147 H (38-126) U/L Total Protein 6.8 (6.3-8.2) g/dL Albumin 3.9 (3.5-5.0) g/dL Amylase 48 (30-110) U/L Lipase 210 (23-300) U/L Urine Color Light Yellow Urine Appearance Clear (Clear) Urine pH 6.5 (5.0-8.0) Ur Specific [place] 1.039 H (1.001-1.035) Urine Protein Trace H (Negative) Urine Glucose (UA) 4+ H (Negative) Urine Ketones 1+ H (Negative) Urine Blood Negative (Negative) Urine Nitrite Negative (Negative) Urine Bilirubin Negative (Negative) Urine Urobilinogen <2.0 (<2.0) mg/dL Ur Leukocyte Esterase Negative (Negative) Disposition <Keith Saul - Last Filed: 07/27/20 13:15> Is patient prescribed a controlled substance at d/c from ED?: No Decision Time: 15:48 <Vikram Sams - Last Filed: 07/27/20 15:48> Clinical Impression: Cholelithiasis Disposition: ADMITTED IP TO THIS HOSP Referrals: Isac Gong MD [Primary Care Provider] - 1-2 days
--- NOTE | 2020-07-27 14:25 | US ---
EXAMINATION TYPE: US gallbladder DATE OF EXAM: 07/27/2020 COMPARISON: CT abdomen and pelvis June 15, 2017 CLINICAL HISTORY: pain. RUQ pain EXAM MEASUREMENTS: Liver Length: 22.6 cm Gallbladder Wall: 0.6 cm Right Kidney: 11.4 x 6.6 x 5.7 cm Limited due to patient body habitus Pancreas: Obscured by bowel gas Liver: Increased attenuation, decreased visualization of vessels suggestive of fatty infiltrate, het erogenous and enlarged in size Gallbladder: Multiple stones seen throughout GB. GB lumen not well visualized due to stones. Limit ed visualization due to patient body habitus Evidence for sonographic Brian's sign: neg CBD: Obscured by overlying bowel gas Right Kidney: No hydronephrosis or masses seen Visualized liver heterogeneously hyperechoic. No surrounding ascites. No biliary dilatation. Suboptim al evaluation of pancreas. I level of the gallbladder fossa there is curvilinear hyperechoic focus li love reflecting stone filled contracted gallbladder. IMPRESSION: Suboptimal study. Suspect marked fatty infiltration of liver, underlying hepatocellular d isease not excluded. Gallstones present. Suboptimal evaluation for acute cholecystitis because of con tracted appearance and patient's large body habitus. It cannot be excluded. Consider HIDA scan follow -up or surgical exploration.
[2020-07-27 14:53] LABS: Appearance,Urine Clear (Clear); Bilirubin,Urine Negative (Negative); Blood,Urine Negative (Negative); Color,Urine Light Yellow; Glucose,Urine (UA) 4+ (Negative); Ketones,Urine 1+ (Negative); Leukocyte Esterase,Urine Negative (Negative); Nitrite,Urine Negative (Negative); PH, Urine 6.5 (5.0-8.0); Protein,Urine Trace (Negative); Specific Gravity,Urine 1.039 (1.001-1.035); Urobilinogen,Urine <2.0 mg/dL (<2.0)
[2020-07-27 15:05] LABS: Basophils # (A) 0.1 k/uL (0-0.2); Basophils % (A) 0 %; Eosinophils # (A) 0.1 k/uL (0-0.7); Eosinophils % (A) 1 %; HCT 47.8 % (39.0-53.0); Lymphocytes # (A) 1.2 k/uL (1.0-4.8); Lymphocytes % (A) 9 %; MCH 31.8 pg (25.0-35.0); MCHC 35.5 g/dL (31.0-37.0); MCV 89.6 fL (80.0-100.0); Mean Platelet Volume 9.2; Monocytes # (A) 0.8 k/uL (0-1.0); Monocytes % (A) 6 %; Neutrophils # (A) 10.9 k/uL (1.3-7.7); Neutrophils % (A) 82 %; Platelet Count 169 k/uL (150-450); RBC 5.33 m/uL (4.30-5.90); RDW 12.9 % (11.5-15.5); WBC 13.2 k/uL (3.8-10.6)
[2020-07-27 15:21] LABS: ALT 47 U/L (4-49); AST 23 U/L (17-59); African American GFR (CKD) >90 (>60 ml/min/1.73 sqM); Albumin 3.9 g/dL (3.5-5.0); Alkaline Phosphatase 147 U/L (38-126); Amylase 48 U/L (30-110); Anion Gap 10 mmol/L; Blood Urea Nitrogen 7 mg/dL (9-20); Calcium 8.9 mg/dL (8.4-10.2); Carbon Dioxide 22 mmol/L (22-30); Chloride 102 mmol/L (98-107); Glucose 345 mg/dL (74-99); Lipase 210 U/L (23-300); Non-African American GFR(CKD) >90 (>60 ml/min/1.73 sqM); Potassium 4.1 mmol/L (3.5-5.1); Sodium 134 mmol/L (137-145); Total Bilirubin 1.3 mg/dL (0.2-1.3); Total Protein 6.8 g/dL (6.3-8.2)
[2020-07-27] MEDS ORDERED: HYDROmorphone 1 MG/ML 1 ML SYRINGE IVP STA (15:46)
[2020-07-27] MEDS ORDERED: NALOXONE 0.4 MG/ML 1 ML VIAL IV PRN (15:49)
[2020-07-27] MEDS: SODIUM CHLORIDE 0.9% 1,000 ML IV SCH (16:13)
[2020-07-27] MEDS: AMPICILLIN-SULBACTAM 1.5 GM in SODIUM CHLORIDE 0.9% 50 ML IVPB SCH ×2 (17:12→23:24)
[2020-07-27 17:59] LABS: Glucose,Whole Blood 224 mg/dL (75-99)
[2020-07-27] MEDS: HYDROmorphone 1 MG/ML 1 ML SYRINGE IVP PRN ×2 (19:29→23:23)
[2020-07-27 21:16] LABS: Glucose,Whole Blood 228 mg/dL (75-99)
[2020-07-27 23:04] LABS: Glucose,Whole Blood 196 mg/dL (75-99)
[2020-07-28] MEDS: HYDROmorphone 1 MG/ML 1 ML SYRINGE IVP PRN ×3 (03:55→12:23)
[2020-07-28] MEDS: SODIUM CHLORIDE 0.9% 1,000 ML IV SCH ×4 (04:02→20:00)
[2020-07-28] MEDS: AMPICILLIN-SULBACTAM 1.5 GM in SODIUM CHLORIDE 0.9% 50 ML IVPB SCH ×3 (05:27→16:17)
[2020-07-28 06:56] LABS: Glucose,Whole Blood 229 mg/dL (75-99)
[2020-07-28] MEDS: INSULIN ASPART (NovoLOG) 100 UNIT/ML VIAL SQ SCH ×4 (08:48→23:09)
[2020-07-28] MEDS: PANTOPRAZOLE 40 MG/10 ML VIAL IV SCH (08:50)
[2020-07-28 09:03] LABS: Basophils # (A) 0.04 X 10*3/uL (0.00-0.10); Basophils % (A) 0.2 %; Eosinophils # (A) 0.02 X 10*3/uL (0.04-0.35); Eosinophils % (A) 0.1 %; HCT 46.4 % (39.6-50.0); Lymphocytes # (A) 1.13 X 10*3/uL (0.90-5.00); MCH 30.9 pg (27.0-32.0); MCHC 34.5 g/dL (32.0-37.0); MCV 89.7 fL (80.0-97.0); Mean Platelet Volume 11.6 fL (9.5-12.2); Monocytes # (A) 1.35 X 10*3/uL (0.20-1.00); Monocytes % (A) 8.3 %; Neutrophils # (A) 13.61 X 10*3/uL (1.80-7.70); Neutrophils % (A) 83.8 %; Platelet Count 178 X 10*3/uL (140-440); RBC 5.17 X 10*6/uL (4.40-5.60); RDW 13.2 % (11.5-14.5); WBC 16.24 X 10*3/uL (4.50-10.00)
[2020-07-28 10:32] LABS: Albumin 3.7 g/dL (3.80-4.90); Albumin/Globulin Ratio 1.68 (1.60-3.17); Anion Gap 9.7 mmol/L (4.00-12.00); Carbon Dioxide 21.3 mmol/L (21.6-31.8); Globulin 2.2 g/dL (1.6-3.3); Non-African American GFR(CKD) 107.9 (60.0-200.0); Potassium 3.9 mmol/L (3.5-5.5); Total Bilirubin 1.8 mg/dL (0.2-1.2); Total Protein 5.9 g/dL (6.2-8.2)
[2020-07-28 12:35] LABS: Glucose,Whole Blood 236 mg/dL (75-99)
[2020-07-28 14:46] LABS: Hemoglobin A1C 11.4 % (4.0-6.0)
[2020-07-28] MEDS ORDERED: LACTATED RINGERS 1,000 ML IV ONE ×2 (15:44→17:07)
[2020-07-28] MEDS ORDERED: ONDANSETRON 4 MG/2 ML VIAL ONE (15:55)
[2020-07-28] MEDS ORDERED: ONDANSETRON 4 MG/2 ML VIAL IVP ONE (15:59)
[2020-07-28] MEDS ORDERED: HEPARIN SODIUM,PORCINE 5,000 UNIT/ML 1 ML VIAL SQ ONE (16:00)
--- NOTE | 2020-07-28 16:10 | P.GSHP ---
History of Present Illness H&P Date: 07/28/20 44-year-old male presented to the emergency department with complaints of abdominal pain. He states abdominal pain is mostly in the right upper quadrant and had been going on for approximately 2 days prior to his arrival to the emergency department. He states that over that time, the pain did worsen. He states that the pain suddenly started while he was at a pool be. He also states he had fast food. He complains of some nausea denies any significant vomiting episodes. On workup, patient was found to have a significant amount of cholelithiasis and leukocytosis. Based on his symptoms, concern is for acute cholecystitis. Patient is noted to have previous abdominal surgery with Keenan 's procedure and colostomy reversal performed in 2018. He is admitted with IV antibiotics at this time. He states that since his admission, he continues to have abdominal pain that is requiring narcotic pain medication for control. - Review of Systems All systems: negative Past Medical History Past Medical History: No Reported History Additional Past Medical History / Comment(s): diverticulitis History of Any Multi-Drug Resistant Organisms: None Reported Past Surgical History: No Surgical Hx Reported Additional Past Surgical History / Comment(s): colon resection w/ colostomy reversal 2019 Past Anesthesia/Blood Transfusion Reactions: No Reported Reaction Past Psychological History: No Psychological Hx Reported Smoking Status: Former smoker Past Alcohol Use History: Occasional Additional Past Alcohol Use History / Comment(s): quit smoker 2019 Past Drug Use History: None Reported Medications and Allergies Home Medications Medication Instructions Recorded Confirmed Type Ibuprofen [Advil] 400 mg PO Q8H PRN 07/27/20 07/27/20 History Allergies Allergy/AdvReac Type Severity Reaction Status Date / Time No Known Allergies Allergy Verified 07/27/20 15:58 Surgical - Exam Osteopathic Statement: *. No significant issues noted on an osteopathic structural exam other than those noted in the History and Physical/Consult. Vital Signs Temp Pulse Resp BP Pulse Ox 98 F 93 18 175/104 98 07/27/20 12:31 07/27/20 12:31 07/27/20 12:31 07/27/20 12:31 07/27/20 12:31 - General well nourished, no distress - Eyes PERRL - ENT normal mucosa - Neck trachea midline - Respiratory normal respiratory effort - Abdomen Soft, tender to palpation in right upper quadrant, nondistended, no rebound, no guarding, well-healed incision scars from previous laparotomy and previous colostomy reversal - Psychiatric oriented to time, oriented to person, oriented to place Results - Labs 07/28/20 05:11 07/28/20 05:11 Abnormal Lab Results - Last 24 Hours (Table) 07/27/20 07/27/20 07/27/20 Range/Units 17:58 20:58 23:03 WBC (4.50-10.00) X 10*3/uL Immature Gran # (0.00-0.04) X 10*3/uL Neutrophils # (1.80-7.70) X 10*3/uL Monocytes # (0.20-1.00) X 10*3/uL Eosinophils # (0.04-0.35) X 10*3/uL Carbon Dioxide (21.6-31.8) mmol/L BUN (9.0-27.0) mg/dL BUN/Creatinine Ratio (12.00-20.00) Ratio Glucose (70-110) mg/dL POC Glucose (mg/dL) 224 H 228 H 196 H (75-99) mg/dL Hemoglobin A1c (4.0-6.0) % Calcium (8.7-10.3) mg/dL Total Bilirubin (0.2-1.2) mg/dL Total Protein (6.2-8.2) g/dL Albumin (3.80-4.90) g/dL 07/28/20 07/28/20 07/28/20 Range/Units 05:11 05:11 05:11 WBC 16.24 H (4.50-10.00) X 10*3/uL Immature Gran # 0.09 H (0.00-0.04) X 10*3/uL Neutrophils # 13.61 H (1.80-7.70) X 10*3/uL Monocytes # 1.35 H (0.20-1.00) X 10*3/uL Eosinophils # 0.02 L (0.04-0.35) X 10*3/uL Carbon Dioxide 21.3 L (21.6-31.8) mmol/L BUN 8.0 L (9.0-27.0) mg/dL BUN/Creatinine Ratio 10.00 L (12.00-20.00) Ratio Glucose 251 H (70-110) mg/dL POC Glucose (mg/dL) (75-99) mg/dL Hemoglobin A1c 11.4 H (4.0-6.0) % Calcium 8.0 L (8.7-10.3) mg/dL Total Bilirubin 1.8 H (0.2-1.2) mg/dL Total Protein 5.9 L (6.2-8.2) g/dL Albumin 3.70 L (3.80-4.90) g/dL 07/28/20 07/28/20 Range/Units 06:53 12:25 WBC (4.50-10.00) X 10*3/uL Immature Gran # (0.00-0.04) X 10*3/uL Neutrophils # (1.80-7.70) X 10*3/uL Monocytes # (0.20-1.00) X 10*3/uL Eosinophils # (0.04-0.35) X 10*3/uL Carbon Dioxide (21.6-31.8) mmol/L BUN (9.0-27.0) mg/dL BUN/Creatinine Ratio (12.00-20.00) Ratio Glucose (70-110) mg/dL POC Glucose (mg/dL) 229 H 236 H (75-99) mg/dL Hemoglobin A1c (4.0-6.0) % Calcium (8.7-10.3) mg/dL Total Bilirubin (0.2-1.2) mg/dL Total Protein (6.2-8.2) g/dL Albumin (3.80-4.90) g/dL Diabetes panel 07/28/20 07/28/20 Range/Units 05:11 05:11 Sodium 135 (135-145) mmol/L Potassium 3.9 (3.5-5.5) mmol/L Chloride 104 (96-109) mmol/L Carbon Dioxide 21.3 L (21.6-31.8) mmol/L BUN 8.0 L (9.0-27.0) mg/dL Creatinine 0.8 (0.6-1.5) mg/dL Glucose 251 H (70-110) mg/dL Hemoglobin A1c 11.4 H (4.0-6.0) % Calcium 8.0 L (8.7-10.3) mg/dL AST 18 (14-35) U/L ALT 40 (10-49) U/L Alkaline Phosphatase 104 (41-126) U/L Total Protein 5.9 L (6.2-8.2) g/dL Albumin 3.70 L (3.80-4.90) g/dL Calcium panel 07/28/20 Range/Units 05:11 Calcium 8.0 L (8.7-10.3) mg/dL Albumin 3.70 L (3.80-4.90) g/dL Pituitary panel 07/28/20 Range/Units 05:11 Sodium 135 (135-145) mmol/L Potassium 3.9 (3.5-5.5) mmol/L Chloride 104 (96-109) mmol/L Carbon Dioxide 21.3 L (21.6-31.8) mmol/L BUN 8.0 L (9.0-27.0) mg/dL Creatinine 0.8 (0.6-1.5) mg/dL Glucose 251 H (70-110) mg/dL Calcium 8.0 L (8.7-10.3) mg/dL Adrenal panel 07/28/20 Range/Units 05:11 Sodium 135 (135-145) mmol/L Potassium 3.9 (3.5-5.5) mmol/L Chloride 104 (96-109) mmol/L Carbon Dioxide 21.3 L (21.6-31.8) mmol/L BUN 8.0 L (9.0-27.0) mg/dL Creatinine 0.8 (0.6-1.5) mg/dL Glucose 251 H (70-110) mg/dL Calcium 8.0 L (8.7-10.3) mg/dL Total Bilirubin 1.8 H (0.2-1.2) mg/dL AST 18 (14-35) U/L ALT 40 (10-49) U/L Alkaline Phosphatase 104 (41-126) U/L Total Protein 5.9 L (6.2-8.2) g/dL Albumin 3.70 L (3.80-4.90) g/dL Assessment and Plan Plan: 44-year-old male with acute cholecystitis. The patient has been started on IV antibiotics and has been kept nothing by mouth. We will plan for cholecystectomy. Attempt will be made at laparoscopic procedure, however based on patient's previous abdominal surgical history, there is a risk of an open procedure based on scar tissue that may be encountered. This has been discussed in depth with the patient. Risks, benefits and alternatives were provided to the patient. He did provide consent with plan for procedure. Further recommendations to be made after procedure is completed.
[2020-07-28] MEDS ORDERED: ROCURONIUM 10 MG/ML (5 ML VIAL) IV ONE (16:17)
[2020-07-28] MEDS ORDERED: LIDOCAINE 1% INJ 10MG/ML (20 ML MDV) ONE (16:17)
[2020-07-28] MEDS ORDERED: PROPOFOL 10 MG/ML 20 ML VIAL IV ONE (16:17)
[2020-07-28] MEDS ORDERED: NEOSTIGMINE 1 MG/ML 10 ML VIAL ONE (16:17)
[2020-07-28] MEDS ORDERED: GLYCOPYRROLATE 0.2 MG/ML 2 ML VIAL ONE (16:17)
[2020-07-28] MEDS ORDERED: SUCCINYLCHOLINE CHLORIDE 100 MG/5 ML SYR IV ONE (16:17)
[2020-07-28] MEDS ORDERED: fentaNYL (PF) 50 MCG/ML 2 ML AMP ONE (16:17)
[2020-07-28] MEDS ORDERED: MIDAZOLAM 2 MG/2 ML VIAL ONE (16:17)
[2020-07-28] MEDS ORDERED: KETOROLAC 15 MG/ML 1 ML VIAL ONE (16:17)
[2020-07-28] MEDS ORDERED: HYDROmorphone (PF) 1 MG/ML ONE (16:17)
--- NOTE | 2020-07-28 16:33 | P.CONS ---
History of Present Illness - Reason for Consult Acute cholecystitis. - History of Present Illness Present 42-year-old male came in with compensative severe abdominal pain rated in the right upper quadrant along with nausea did not vomit. Patient had a ultrasound of the abdomen which showed cholelithiasis and possibility of cholecystitis although patient had fever and leukocytosis and a Brian's sign is vaguely positive patient probably has cholecystitis patient will undergo cholecystectomy today patient is on Unasyn at this time. Patient had Keenan's procedure and colostomy for diverticulitis in the past and patient had a reversal of colostomy patient has abdominal wall scars secondary to the previous procedures. Review of Systems REVIEW OF SYSTEMS: CONSTITUTIONAL: no malaise, no fatigue. HEENT: No recent visual problems or hearing problems. Denied any sore throat. CARDIOVASCULAR: No chest pain, orthopnea, PND, no palpitations, no syncope. PULMONARY: No shortness of breath, no cough, no hemoptysis. GASTROINTESTINAL: Patient's abdominal pain as sharp and severe NEUROLOGICAL: No headaches, no weakness, no numbness. HEMATOLOGICAL: Denies any bleeding or petechiae. GENITOURINARY: Denies any burning micturition, frequency, or urgency. MUSCULOSKELETAL/RHEUMATOLOGICAL: Denies any joint pain, swelling, or any muscle pain. ENDOCRINE: Denies any polyuria or polydipsia. The rest of the 14-point review of systems is negative. Past Medical History Past Medical History: No Reported History Additional Past Medical History / Comment(s): diverticulitis History of Any Multi-Drug Resistant Organisms: None Reported Past Surgical History: No Surgical Hx Reported Additional Past Surgical History / Comment(s): colon resection w/ colostomy reversal 2019 Past Anesthesia/Blood Transfusion Reactions: No Reported Reaction Past Psychological History: No Psychological Hx Reported Smoking Status: Former smoker Past Alcohol Use History: Occasional Additional Past Alcohol Use History / Comment(s): quit smoker 2019 Past Drug Use History: None Reported Medications and Allergies Home Medications Medication Instructions Recorded Confirmed Type Ibuprofen [Advil] 400 mg PO Q8H PRN 07/27/20 07/27/20 History Allergies Allergy/AdvReac Type Severity Reaction Status Date / Time No Known Allergies Allergy Verified 07/27/20 15:58 Physical Exam Vitals: Vital Signs Temp Pulse Pulse Resp BP BP Pulse Ox 07/28/20 15:47 98.8 F 106 H 18 133/84 95 07/28/20 14:20 98.8 F 108 H 18 139/84 95 07/28/20 07:00 100.1 F H 111 H 18 133/71 96 07/28/20 01:03 100 16 158/78 98 07/27/20 20:00 98.1 F 100 16 98 07/27/20 19:10 100 16 07/27/20 18:12 20 07/27/20 18:04 98.8 F 92 16 161/103 97 07/27/20 17:14 91 18 161/87 98 Intake and Output 07/28/20 07/28/20 07/28/20 06:59 14:59 22:59 Intake Total 200 Balance 200 Intake: IV 200 Other: # Voids 1 3 Weight 131.542 kg PHYSICAL EXAMINATION: GENERAL: The patient is alert and oriented x3, not in any acute distress. Well developed, well nourished. HEENT: Pupils are round and equally reacting to light. EOMI. No scleral icterus. No conjunctival pallor. Normocephalic, atraumatic. No pharyngeal erythema. No thyromegaly. CARDIOVASCULAR: S1 and S2 present. No murmurs, rubs, or gallops. PULMONARY: Chest is clear to auscultation, no wheezing or crackles. ABDOMEN: Soft, tenderness in the right upper quadrant nondistended, normoactive bowel sounds. No palpable organomegaly. MUSCULOSKELETAL: No joint swelling or deformity. EXTREMITIES: No cyanosis, clubbing, or pedal edema. NEUROLOGICAL: Gross neurological examination did not reveal any focal deficits. SKIN: No rashes. Results CBC & Chem 7: 07/28/20 05:11 07/28/20 05:11 Labs: Abnormal Lab Results - Last 24 Hours (Table) 07/27/20 07/27/20 07/27/20 Range/Units 17:58 20:58 23:03 WBC (4.50-10.00) X 10*3/uL Immature Gran # (0.00-0.04) X 10*3/uL Neutrophils # (1.80-7.70) X 10*3/uL Monocytes # (0.20-1.00) X 10*3/uL Eosinophils # (0.04-0.35) X 10*3/uL Carbon Dioxide (21.6-31.8) mmol/L BUN (9.0-27.0) mg/dL BUN/Creatinine Ratio (12.00-20.00) Ratio Glucose (70-110) mg/dL POC Glucose (mg/dL) 224 H 228 H 196 H (75-99) mg/dL Hemoglobin A1c (4.0-6.0) % Calcium (8.7-10.3) mg/dL Total Bilirubin (0.2-1.2) mg/dL Total Protein (6.2-8.2) g/dL Albumin (3.80-4.90) g/dL 07/28/20 07/28/20 07/28/20 Range/Units 05:11 05:11 05:11 WBC 16.24 H (4.50-10.00) X 10*3/uL Immature Gran # 0.09 H (0.00-0.04) X 10*3/uL Neutrophils # 13.61 H (1.80-7.70) X 10*3/uL Monocytes # 1.35 H (0.20-1.00) X 10*3/uL Eosinophils # 0.02 L (0.04-0.35) X 10*3/uL Carbon Dioxide 21.3 L (21.6-31.8) mmol/L BUN 8.0 L (9.0-27.0) mg/dL BUN/Creatinine Ratio 10.00 L (12.00-20.00) Ratio Glucose 251 H (70-110) mg/dL POC Glucose (mg/dL) (75-99) mg/dL Hemoglobin A1c 11.4 H (4.0-6.0) % Calcium 8.0 L (8.7-10.3) mg/dL Total Bilirubin 1.8 H (0.2-1.2) mg/dL Total Protein 5.9 L (6.2-8.2) g/dL Albumin 3.70 L (3.80-4.90) g/dL 07/28/20 07/28/20 Range/Units 06:53 12:25 WBC (4.50-10.00) X 10*3/uL Immature Gran # (0.00-0.04) X 10*3/uL Neutrophils # (1.80-7.70) X 10*3/uL Monocytes # (0.20-1.00) X 10*3/uL Eosinophils # (0.04-0.35) X 10*3/uL Carbon Dioxide (21.6-31.8) mmol/L BUN (9.0-27.0) mg/dL BUN/Creatinine Ratio (12.00-20.00) Ratio Glucose (70-110) mg/dL POC Glucose (mg/dL) 229 H 236 H (75-99) mg/dL Hemoglobin A1c (4.0-6.0) % Calcium (8.7-10.3) mg/dL Total Bilirubin (0.2-1.2) mg/dL Total Protein (6.2-8.2) g/dL Albumin (3.80-4.90) g/dL Assessment and Plan Plan: -acute cholecystitis: Patient will undergo cholecystectomy. Patient is presently on Unasyn which will be continued. Continue with present pain medications -Sepsis secondary to cholecystitis -New-onset diabetes mellitus: Patient will be continued on study scale insulin for now we'll decide on the home regimen at the time of discharge patient will need at least to oral hypoglycemic agents consisting his hemoglobin A1c of 11.. -GI prophylaxis with Protonix -History of diverticulitis with colonic resection the past -DVT prophylaxis as per primary service
[2020-07-28] MEDS ORDERED: LIDOCAINE 1%-EPI 1:100,000 20 ML VIAL SQ ONE (16:48)
[2020-07-28] MEDS ORDERED: ONDANSETRON 4 MG/2 ML VIAL IVP PRN (18:11)
--- NOTE | 2020-07-28 18:21 | P.OP ---
Date of Procedure: 07/28/20 Preoperative Diagnosis: Acute cholecystitis Postoperative Diagnosis: Acute cholecystitis Purulent gallbladder Cholelithiasis Procedure(s) Performed: Laparoscopic cholecystectomy Anesthesia: KELA Surgeon: Lanie Kurtz Pathology: other (Gallbladder and contents) Condition: stable Disposition: floor Indications for Procedure: 44-year-old male presented to the emergency department with complaints of right upper quadrant abdominal pain. On workup, concern was for acute cholecystitis. Plan was made for surgical treatment with cholecystectomy. Risks, benefits and alternatives were provided to the patient. Patient was aware of risk of open procedure based on previous laparotomy. Operative Findings: Significantly distended gallbladder edematous gallbladder Significant cholelithiasis Purulent gallbladder Description of Procedure: The patient was brought into the operating suite and placed in supine position on the operating table. Sedation was provided by anesthesia and the patient underwent endotracheal intubation. The patient was then prepped and draped in regular sterile fashion. The abdomen was entered under direct visualization from [place] point using a 5 mm Visiport trocar. Once the abdomen was entered, pneumoperitoneum was achieved. The patient was noted to have some midline adhesions from previous laparotomy, however, right side of the abdomen was completely free of adhesions and amenable for continuation of laparoscopic procedure. An incision was made to the right of the umbilicus and a 12 mm trocar was placed. 2 additional 5 mm trochars were placed in the right upper quadrant. A 5 mm trocar was also placed in the subxiphoid region. The gallbladder was then grasped and was noted to be significantly edematous and difficult to grasp due to large stones. Due to the edema and distention, ovarian cyst needle was placed within the gallbladder and suctioned and immediate drainage of pus was noted. Pus was sent for culture. Careful and meticulous dissection was then carried bluntly around the infundibulum of the gallbladder and the cystic duct was then visualized. A [place] dissector was used to skeletonize the cystic duct. 2 clips were placed proximally and one was placed distally and the cystic duct was then ligated. The chiki were interrogated and no evidence of biliary leak was noted. The cystic artery was then clearly visualized and skeletonized in a similar fashion. 2 clips were placed proximally and one was placed distally and the cystic artery was ligated. The gallbladder was then dissected off of the gallbladder fossa on the liver bed using electrocautery. It was placed in an Endo Catch bag and removed from the abdomen from the 12 mm port site. The 12 mm port site did require extension of the incision to adequately remove the gallbladder. At this point copious muss irrigation was placed in the right upper quadrant. Hemostasis was maintained. Due to the significant amount of inflammation, ANTIONE drain was decided to be placed in the right upper quadrant. This placed through a 5 mm port site in the right upper quadrant. This was secured in place with a 2-0 nylon suture. At this point, the 12 mm trocar site fascia was closed with multiple interrupted 0 Vicryl sutures under direct visualization using a Familia-Gavino device. Skin incisions were then closed using 4-0 Vicryl subcuticular suture. The 12 mm incision site was closed with skin chiki. Sterile dressing was applied. The patient was awakened in the operating suite and taken to postanesthesia care unit in stable condition.
[2020-07-28 18:39] LABS: Glucose,Whole Blood 242 mg/dL (75-99)
[2020-07-28] MEDS ORDERED: INSULIN ASPART (NovoLOG) 100 UNIT/ML VIAL SQ ONE (18:40)
[2020-07-28 20:26] LABS: Glucose,Whole Blood 284 mg/dL (75-99)
[2020-07-28] MEDS ORDERED: VANCOMYCIN IV PER PHARMACY 1 EACH MISC MISCELLANE PRN (22:32)
[2020-07-28] MEDS ORDERED: VANCOMYCIN 2,250 MG in SODIUM CHLORIDE 0.9% 500 ML 500 ML IVPB SCH (22:45)
[2020-07-28] MEDS ORDERED: VANCOMYCIN 2,000 MG in SODIUM CHLORIDE 0.9% 500 ML 500 ML IVPB SCH (22:45)
[2020-07-28] MEDS: HYDROcodone/APAP 5-325MG 1 EACH TAB PO PRN (22:53)
[2020-07-28] MEDS: HEPARIN SODIUM,PORCINE/PF 5,000 UNIT/0.5 ML SYRINGE SQ SCH (23:09)
[2020-07-28] MEDS: PIPERACILLIN-TAZOBACTAM 3.375 GM in SODIUM CHLORIDE 0.9% 100 ML IVPB SCH (23:10)
[2020-07-28] MEDS: ACETAMINOPHEN TAB 325 MG TAB PO PRN (23:13)
[2020-07-28 23:24] LABS: Glucose,Whole Blood 320 mg/dL (75-99)
[2020-07-29] MEDS: HYDROmorphone 0.5 MG/0.5 ML SYRINGE IVP PRN ×5 (04:48→23:07)
[2020-07-29] MEDS: ACETAMINOPHEN TAB 325 MG TAB PO PRN (04:49)
[2020-07-29] MEDS: HYDROcodone/APAP 5-325MG 1 EACH TAB PO PRN (06:22)
[2020-07-29] MEDS: VANCOMYCIN 2,000 MG in SODIUM CHLORIDE 0.9% 500 ML 500 ML IVPB SCH ×3 (06:23→23:05)
[2020-07-29 07:17] LABS: Glucose,Whole Blood 210 mg/dL (75-99)
[2020-07-29] MEDS: HEPARIN SODIUM,PORCINE/PF 5,000 UNIT/0.5 ML SYRINGE SQ SCH ×3 (07:38→23:06)
[2020-07-29] MEDS: PANTOPRAZOLE 40 MG/10 ML VIAL IV SCH (07:39)
[2020-07-29] MEDS: INSULIN ASPART (NovoLOG) 100 UNIT/ML VIAL SQ SCH ×4 (07:39→19:57)
[2020-07-29] MEDS: PIPERACILLIN-TAZOBACTAM 3.375 GM in SODIUM CHLORIDE 0.9% 100 ML IVPB SCH ×2 (08:38→16:43)
[2020-07-29 11:35] LABS: Glucose,Whole Blood 310 mg/dL (75-99)
[2020-07-29 11:37] LABS: Basophils % (A) 0 %; Eosinophils # (A) 0.1 k/uL (0-0.7); Eosinophils % (A) 1 %; HCT 41.3 % (39.0-53.0); HGB 14.1 gm/dL (13.0-17.5); Lymphocytes % (A) 10 %; MCH 31.8 pg (25.0-35.0); MCHC 34.2 g/dL (31.0-37.0); MCV 92.8 fL (80.0-100.0); Mean Platelet Volume 8.6; Monocytes # (A) 0.6 k/uL (0-1.0); Monocytes % (A) 6 %; Neutrophils # (A) 8.2 k/uL (1.3-7.7); Neutrophils % (A) 83 %; Platelet Count 160 k/uL (150-450); RBC 4.45 m/uL (4.30-5.90); RDW 13.1 % (11.5-15.5); WBC 9.9 k/uL (3.8-10.6)
[2020-07-29 11:50] LABS: ALT 39 U/L (4-49); AST 47 U/L (17-59); African American GFR (CKD) >90 (>60 ml/min/1.73 sqM); Albumin 2.6 g/dL (3.5-5.0); Alkaline Phosphatase 99 U/L (38-126); Anion Gap 5 mmol/L; Blood Urea Nitrogen 13 mg/dL (9-20); Carbon Dioxide 22 mmol/L (22-30); Chloride 107 mmol/L (98-107); Globulin 2.5 g/dL; Glucose 357 mg/dL (74-99); Non-African American GFR(CKD) >90 (>60 ml/min/1.73 sqM); Potassium 3.9 mmol/L (3.5-5.1); Sodium 134 mmol/L (137-145); Total Bilirubin 1.3 mg/dL (0.2-1.3); Total Protein 5.1 g/dL (6.3-8.2)
--- NOTE | 2020-07-29 11:58 | P.PN ---
Subjective Patient is admitted for acute cholecystitis. Patient is status post cholecystectomy the gallbladder was infected. Patient is on Unasyn. Patient t he previous to have fevers patient has blood cultures that were positive for staph aureus because of which she was started on vancomycin repeat cultures will be obtained today and tomorrow morning infectious disease will be consulted continue with IV fluids patient continues to have significant pain we'll start her him on Toradol with close monitoring of kidney function. Patient's blood sugars are high patient will be started on Levaquin 10 and continue with the sliding scale insulin patient was started on liquid diet. We'll cut down the fluids to 75 mL per hour. Constitutional: Denied any fatigue denied any fever. Cardio vascular: denied any chest pain, palpitations Gastrointestinal can use to have abdominal pain. Pulmonary: Denied any shortness of breath cough Neurologic denied any new focal deficits All inpatient medications were reviewed and appropriate changes in these medications as dictated in the interval history and assessment and plan. Objective - Vital Signs Vital signs: Vital Signs Temp 99.4 F 07/29/20 10:25 Pulse 109 H 07/29/20 07:00 Resp 20 07/29/20 08:00 BP 122/71 07/29/20 07:00 Pulse Ox 92 L 07/29/20 07:00 Intake & Output 07/28/20 07/29/20 07/29/20 18:59 06:59 18:59 Intake Total 1550 720 Output Total 50 40 300 Balance 1500 680 -300 Weight 131.542 kg Intake: IV 1550 Oral 720 Output: Drainage 40 Anterior Abdomen 40 Urine 300 Estimated Blood Loss 50 Other: # Voids 3 1 - Exam PHYSICAL EXAMINATION: GENERAL: The patient is alert and oriented x3, not in any acute distress. Well developed, well nourished. HEENT: Pupils are round and equally reacting to light. EOMI. No scleral icterus. No conjunctival pallor. Normocephalic, atraumatic. No pharyngeal erythema. No thyromegaly. CARDIOVASCULAR: S1 and S2 present. No murmurs, rubs, or gallops. PULMONARY: Chest is clear to auscultation, no wheezing or crackles. ABDOMEN: Soft, surgical site areas appear to be clean bowel sounds. No palpable organomegaly. MUSCULOSKELETAL: No joint swelling or deformity. EXTREMITIES: No cyanosis, clubbing, or pedal edema. NEUROLOGICAL: Gross neurological examination did not reveal any focal deficits. SKIN: No rashes. - Labs CBC & Chem 7: 07/29/20 11:13 07/29/20 11:13 Labs: Abnormal Lab Results - Last 24 Hours (Table) 07/28/20 07/28/20 07/28/20 Range/Units 05:11 12:25 18:37 Neutrophils # (1.3-7.7) k/uL Sodium (137-145) mmol/L Glucose (74-99) mg/dL POC Glucose (mg/dL) 236 H 242 H (75-99) mg/dL Hemoglobin A1c 11.4 H (4.0-6.0) % Calcium (8.4-10.2) mg/dL Total Protein (6.3-8.2) g/dL Albumin (3.5-5.0) g/dL 07/28/20 07/28/20 07/29/20 Range/Units 20:11 23:07 07:15 Neutrophils # (1.3-7.7) k/uL Sodium (137-145) mmol/L Glucose (74-99) mg/dL POC Glucose (mg/dL) 284 H 320 H 210 H (75-99) mg/dL Hemoglobin A1c (4.0-6.0) % Calcium (8.4-10.2) mg/dL Total Protein (6.3-8.2) g/dL Albumin (3.5-5.0) g/dL 07/29/20 07/29/20 07/29/20 Range/Units 11:13 11:13 11:33 Neutrophils # 8.2 H (1.3-7.7) k/uL Sodium 134 L (137-145) mmol/L Glucose 357 H (74-99) mg/dL POC Glucose (mg/dL) 310 H (75-99) mg/dL Hemoglobin A1c (4.0-6.0) % Calcium 7.0 L (8.4-10.2) mg/dL Total Protein 5.1 L (6.3-8.2) g/dL Albumin 2.6 L (3.5-5.0) g/dL Microbiology - Last 24 Hours (Table) 07/28/20 18:00 Gram Stain - Preliminary Aspirate Body Fluid Culture - Preliminary 07/27/20 19:20 Blood Culture Gram Stain - Preliminary Blood Blood Culture - Preliminary Staphylococcus aureus 07/27/20 15:55 Blood Culture - Final Blood Assessment and Plan Plan: -acute cholecystitis: Is postcholecystectomy uncontrolled pain we will add Toradol for pain -Sepsis secondary to cholecystitis patient also has bacteremia with staph aureus. -Staph aureus bacteremia we'll repeat the cultures today and tomorrow patient was started on vancomycin. Still can be from the gallbladder. Infectious disease was consulted -New-onset diabetes mellitus: Uncontrolled elevated blood sugars patient's hemoglobin A1c is 11 patient will be continue on sliding scale insulin along with lin[place] -GI prophylaxis with Protonix -History of diverticulitis with colonic resection the past -DVT prophylaxis as per primary service
[2020-07-29] MEDS: KETOROLAC 15 MG/ML 1 ML VIAL IVP PRN ×2 (12:00→19:56)
[2020-07-29] MEDS: LINAGLIPTIN 5 MG TABLET PO SCH (12:01)
[2020-07-29 14:13] VITALS: BMI 42.8
--- NOTE | 2020-07-29 14:29 | P.PN ---
Subjective Progress Note Date: 07/29/20 Patient seen and examined at bedside. He is postoperative day #1 from laparoscopic cholecystectomy. ANTIONE drain in place with serosanguinous output. Patient tolerating diet. Leukocytosis resolved. Blood cultures are positive with pending gallbladder aspiration culture. He has had multiple fevers overni ght. Objective - Vital Signs Vital signs: Vital Signs Temp 98.2 F 07/29/20 13:37 Pulse 109 H 07/29/20 07:00 Resp 20 07/29/20 08:00 BP 122/71 07/29/20 07:00 Pulse Ox 92 L 07/29/20 07:00 Intake & Output 07/28/20 07/29/20 07/29/20 18:59 06:59 18:59 Intake Total 1550 720 Output Total 50 40 300 Balance 1500 680 -300 Weight 131.542 kg 131.542 kg Intake: IV 1550 Oral 720 Output: Drainage 40 Anterior Abdomen 40 Urine 300 Estimated Blood Loss 50 Other: # Voids 3 1 - Constitutional General appearance: Present: cooperative, no acute distress - Respiratory Details: No difficulty with respiration - Gastrointestinal Gastrointestinal Comment(s): Soft, appropriate tenderness, nondistended, no rebound, no guarding, ANTIONE drain in place with serosanguinous output, incision sites are clean, dry and intact - Labs CBC & Chem 7: 07/29/20 11:13 07/29/20 11:13 Labs: Abnormal Lab Results - Last 24 Hours (Table) 07/28/20 07/28/20 07/28/20 Range/Units 05:11 18:37 20:11 Neutrophils # (1.3-7.7) k/uL Sodium (137-145) mmol/L Glucose (74-99) mg/dL POC Glucose (mg/dL) 242 H 284 H (75-99) mg/dL Hemoglobin A1c 11.4 H (4.0-6.0) % Calcium (8.4-10.2) mg/dL Total Protein (6.3-8.2) g/dL Albumin (3.5-5.0) g/dL 07/28/20 07/29/20 07/29/20 Range/Units 23:07 07:15 11:13 Neutrophils # 8.2 H (1.3-7.7) k/uL Sodium (137-145) mmol/L Glucose (74-99) mg/dL POC Glucose (mg/dL) 320 H 210 H (75-99) mg/dL Hemoglobin A1c (4.0-6.0) % Calcium (8.4-10.2) mg/dL Total Protein (6.3-8.2) g/dL Albumin (3.5-5.0) g/dL 07/29/20 07/29/20 Range/Units 11:13 11:33 Neutrophils # (1.3-7.7) k/uL Sodium 134 L (137-145) mmol/L Glucose 357 H (74-99) mg/dL POC Glucose (mg/dL) 310 H (75-99) mg/dL Hemoglobin A1c (4.0-6.0) % Calcium 7.0 L (8.4-10.2) mg/dL Total Protein 5.1 L (6.3-8.2) g/dL Albumin 2.6 L (3.5-5.0) g/dL Microbiology - Last 24 Hours (Table) 07/28/20 18:00 Gram Stain - Preliminary Aspirate Body Fluid Culture - Preliminary 07/27/20 19:20 Blood Culture Gram Stain - Preliminary Blood Blood Culture - Preliminary Staphylococcus aureus 07/27/20 15:55 Blood Culture - Final Blood Assessment and Plan Plan: Postoperative day #1, laparoscopic cholecystectomy for acute cholecystitis - Positive blood cultures, pending cultures of gallbladder purulent fluid aspirate - Antibiotics to be managed by infectious disease, consult placed by internal medicine - Continue ANTIONE drain at this time - Advance diet as tolerated - Pain control
[2020-07-29 17:04] LABS: Glucose,Whole Blood 284 mg/dL (75-99)
[2020-07-29 19:23] LABS: Glucose,Whole Blood 264 mg/dL (75-99)
[2020-07-29] MEDS ORDERED: VANCOMYCIN 2,250 MG in SODIUM CHLORIDE 0.9% 500 ML 500 ML IVPB ONE (22:45)
[2020-07-29] MEDS: SODIUM CHLORIDE 0.9% 1,000 ML IV SCH (23:04)
[2020-07-29] MEDS: AMPICILLIN-SULBACTAM 3 GM in SODIUM CHLORIDE 0.9% 100 ML IVPB SCH (23:05)
--- NOTE | 2020-07-29 23:13 | CONS ---
CONSULTATION DATE OF SERVICE: 07/29/2020 REASON FOR CONSULTATION: Bacteremia. HISTORY OF PRESENT ILLNESS: The patient is a 44-year-old man presenting to [facility] ER on 07/27/2020 for evaluation of abdominal pain that started a few days before presentation to hospital. The patient's pain has been mostly in the right upper quadrant area. The patient described the pain to be more sharp in nature, intensity almost 7 to 8/10 and no radiation with associated nausea. No vomiting or any diarrhea. The patient apparently was evaluated at Urgent Care and subsequently was sent to [facility] ER for further evaluation. On arrival to the ER, the patient was initially afebrile. Subsequently did spike a fever of 101 degrees Fahrenheit. The patient did have blood cultures drawn which can be positive with gram-positive and subsequently finalized with Staph aureus. Sensitivity is pending. The patient did have ultrasound of the gallbladder with concern for cholecystitis. The patient was taken to the OR last evening in this patient who is status post laparoscopic cholecystectomy with evidence of purulent gallbladder and cholelithiasis. The abdominal culture has been obtained which is currently pending. He was treated with Zosyn with blood culture with gram- positive with Staph aureus. Vancomycin was added. Infectious Disease was consulted for further management of antibiotic therapy. REVIEW OF SYSTEMS: Positive points have been mentioned in HPI. Rest of systems are negative. PAST MEDICAL HISTORY: History of diverticulitis with perforation. PAST SURGICAL HISTORY: Diverting colostomy, subsequently reversal. SOCIAL HISTORY: Denies smoking, occasionally drinks. No drug use. FAMILY HISTORY: No pertinent findings noticed. ALLERGIES: No known drug allergies. MEDICATIONS: The patient is currently on Tylenol, [place], Zosyn, vancomycin, Pharmacy to dose, heparin subcu, Dilaudid, NovoLog, Toradol, Tradjenta, Narcan, Zofran, Protonix. PHYSICAL EXAMINATION: Blood pressure is 118/75 with a pulse of 95, temperature 98. He is 95% on room air. General description is a middle-aged male lying in bed in no distress. No tachypnea or accessory muscles of respiration use. HEENT: Examination shows no pallor or scleral icterus. Oral mucous membranes dry. NECK: Trachea central. No thyromegaly. LUNGS unlabored breathing. Clear to auscultation anteriorly. No wheeze or crackles. HEART S1, S2. Regular rate and rhythm. ABDOMEN: Soft, mildly tender in the upper quadrant area. The patient did have a ANTIONE drain with some blood tinged secretions. EXTREMITIES: No edema of the feet. SKIN: No rash or mass palpable. NEUROLOGICAL: Patient is awake, alert, oriented x3. Mood and affect normal. LABS: Hemoglobin is 14.1, white count 9.9, BUN of 13, creatinine 0.75. Electrolytes have been normal. Liver enzymes are normal. Blood culture with Staph aureus. DIAGNOSTIC IMPRESSION AND PLAN: Patient with Staph aureus bacteremia, source is likely acute cholecystitis in this patient admitted to the hospital with sepsis in this patient who did have a fever, elevated white count, tachycardia and currently has no other obvious focus of this positive blood culture. The patient is breathing comfortably on room air. No evidence of any cellulitis or open wounds. PLAN: 1. Blood culture will be repeated to document clearance of bacteremia. 2. Vancomycin, pharmacy to dose, target of 15. However discontinue Zosyn and add Unasyn to decrease risk of nephrotoxicity. 3. We will follow on his clinical condition and culture to further adjust medication if needed. Thank you for this consultation. We will follow this patient along with you. MMODL / IJN: [id number] /
[2020-07-30] MEDS: KETOROLAC 15 MG/ML 1 ML VIAL IVP PRN (02:49)
[2020-07-30] MEDS: HYDROmorphone 0.5 MG/0.5 ML SYRINGE IVP PRN ×2 (02:50→07:09)
[2020-07-30] MEDS: AMPICILLIN-SULBACTAM 3 GM in SODIUM CHLORIDE 0.9% 100 ML IVPB SCH ×3 (05:40→17:44)
[2020-07-30] MEDS: VANCOMYCIN 2,000 MG in SODIUM CHLORIDE 0.9% 500 ML 500 ML IVPB SCH ×2 (05:41→14:44)
[2020-07-30 06:50] LABS: Glucose,Whole Blood 246 mg/dL (75-99)
[2020-07-30] MEDS: INSULIN ASPART (NovoLOG) 100 UNIT/ML VIAL SQ SCH ×4 (07:08→21:17)
[2020-07-30] MEDS: PANTOPRAZOLE 40 MG/10 ML VIAL IV SCH (07:08)
[2020-07-30] MEDS: HEPARIN SODIUM,PORCINE/PF 5,000 UNIT/0.5 ML SYRINGE SQ SCH ×3 (07:08→21:18)
[2020-07-30] MEDS: LINAGLIPTIN 5 MG TABLET PO SCH (08:09)
[2020-07-30 09:09] LABS: HCT 38.2 % (39.6-50.0); HGB 12.7 g/dL (13.0-17.0); MCH 30.4 pg (27.0-32.0); MCHC 33.2 g/dL (32.0-37.0); MCV 91.4 fL (80.0-97.0); Mean Platelet Volume 11.5 fL (9.5-12.2); Platelet Count 157 X 10*3/uL (140-440); RBC 4.18 X 10*6/uL (4.40-5.60); RDW 13.2 % (11.5-14.5); WBC 7.07 X 10*3/uL (4.50-10.00)
--- NOTE | 2020-07-30 09:37 | P.PN ---
Subjective Progress Note Date: 07/30/20 Patient seen and examined at bedside. States he is feeling much better. Ambulating in the hallway. Using incentive spirometry. Tolerating diet. Having flatus, denies bowel movement. ANTIONE output is serosanguineous Objective - Vital Signs Vital signs: Vital Signs Temp 98.1 F 07/30/20 07:00 Pulse 80 07/30/20 07:00 Resp 18 07/30/20 07:00 BP 129/85 07/30/20 07:00 Pulse Ox 97 07/30/20 07:00 Intake & Output 07/29/20 07/30/20 07/30/20 18:59 06:59 18:59 Intake Total 1400 240 240 Output Total 1130 1280 500 Balance 270 -1040 -260 Weight 131.542 kg Intake: IV 1400 Piperacillin-Tazobactam 3 100 .375 gm In Sodium Chloride 0.9% 100 ml @ 25 mls/hr IVPB Q8HR [facility] Rx# :[id number] Sodium Chloride 0.9% 1, 800 000 ml @ 75 mls/hr IV . [id number] [facility] Rx#:[id number] Vancomycin 2,250 mg In 500 Sodium Chloride 0.9% 500 ml 500 ml @ 167 mls/hr IVPB ONCE ONE Rx#: [id number] Oral 240 240 Output: Drainage 30 80 Anterior Abdomen 30 80 Urine 1100 1200 500 Other: # Voids 2 - Constitutional General appearance: Present: cooperative, no acute distress - Gastrointestinal Gastrointestinal Comment(s): Soft, mild tenderness to palpation around ANTIONE insertion site, nondistended, no rebound, no guarding, incision sites are clean, dry and intact - Psychiatric Psychiatric: Present: A&O x's 3 - Labs CBC & Chem 7: 07/30/20 06:28 07/29/20 11:13 Labs: Abnormal Lab Results - Last 24 Hours (Table) 07/29/20 07/29/20 07/29/20 Range/Units 11:13 11:13 11:33 RBC (4.40-5.60) X 10*6/uL Hgb (13.0-17.0) g/dL Hct (39.6-50.0) % Neutrophils # 8.2 H (1.3-7.7) k/uL Sodium 134 L (137-145) mmol/L Glucose 357 H (74-99) mg/dL POC Glucose (mg/dL) 310 H (75-99) mg/dL Calcium 7.0 L (8.4-10.2) mg/dL Total Protein 5.1 L (6.3-8.2) g/dL Albumin 2.6 L (3.5-5.0) g/dL 07/29/20 07/29/20 07/30/20 Range/Units 17:01 19:21 06:28 RBC 4.18 L (4.40-5.60) X 10*6/uL Hgb 12.7 L (13.0-17.0) g/dL Hct 38.2 L (39.6-50.0) % Neutrophils # (1.3-7.7) k/uL Sodium (137-145) mmol/L Glucose (74-99) mg/dL POC Glucose (mg/dL) 284 H 264 H (75-99) mg/dL Calcium (8.4-10.2) mg/dL Total Protein (6.3-8.2) g/dL Albumin (3.5-5.0) g/dL 07/30/20 Range/Units 06:31 RBC (4.40-5.60) X 10*6/uL Hgb (13.0-17.0) g/dL Hct (39.6-50.0) % Neutrophils # (1.3-7.7) k/uL Sodium (137-145) mmol/L Glucose (74-99) mg/dL POC Glucose (mg/dL) 246 H (75-99) mg/dL Calcium (8.4-10.2) mg/dL Total Protein (6.3-8.2) g/dL Albumin (3.5-5.0) g/dL Microbiology - Last 24 Hours (Table) 07/29/20 11:13 Blood Culture Gram Stain - Preliminary Blood 07/29/20 11:13 Blood Culture - Final Blood 07/28/20 18:00 Gram Stain - Preliminary Aspirate Body Fluid Culture - Preliminary Presumptive Staph aureus 07/27/20 19:20 Blood Culture Gram Stain - Preliminary Blood Blood Culture - Preliminary Staphylococcus aureus Assessment and Plan Plan: Postoperative day #2, laparoscopic cholecystectomy for acute cholecystitis - Positive blood cultures, pending cultures of gallbladder purulent fluid aspirate - Antibiotics to be managed by infectious disease, awaiting repeat blood cultures - Continue ANTIONE drain at this time - Continue to increase activity - Incentive spirometry - Pain control
[2020-07-30 10:01] LABS: African American GFR (CKD) 132.1 (60.0-200.0); Anion Gap 6.6 mmol/L (4.00-12.00); BUN/Creat Ratio 18.57 Ratio (12.00-20.00); Calcium 6.9 mg/dL (8.7-10.3); Carbon Dioxide 21.4 mmol/L (21.6-31.8); Potassium 3.6 mmol/L (3.5-5.5)
[2020-07-30] MEDS: HYDROcodone/APAP 5-325MG 1 EACH TAB PO PRN (11:33)
[2020-07-30] MEDS: SODIUM CHLORIDE 0.9% 1,000 ML IV SCH ×2 (11:34→19:13)
--- NOTE | 2020-07-30 11:51 | P.PN ---
Subjective Patient is admitted for acute cholecystitis. Patient is status post cholecystectomy the gallbladder was infected. Patient is on Unasyn. Patient t he previous to have fevers patient has blood cultures that were positive for staph aureus because of which she was started on vancomycin repeat cultures will be obtained today and tomorrow morning infectious disease will be consulted continue with IV fluids patient continues to have significant pain we'll start her him on Toradol with close monitoring of kidney function. Patient's blood sugars are high patient will be started on Levaquin 10 and continue with the sliding scale insulin patient was started on liquid diet. We'll cut down the fluids to 75 mL per hour. 07/30/2020 Patient blood cultures from 7th are positive blood cultures from yesterday are so far negativePatient remains on vancomycin source of bacteremia being gallbladder. Patient remains on Unasyn as well. Constitutional: Denied any fatigue denied any fever. Cardio vascular: denied any chest pain, palpitations Gastrointestinal can use to have abdominal pain. Pulmonary: Denied any shortness of breath cough Neurologic denied any new focal deficits All inpatient medications were reviewed and appropriate changes in these medications as dictated in the interval history and assessment and plan. Objective - Vital Signs Vital signs: Vital Signs Temp 98.1 F 07/30/20 07:00 Pulse 80 07/30/20 08:00 Resp 18 07/30/20 08:00 BP 129/85 07/30/20 07:00 Pulse Ox 97 07/30/20 07:00 Intake & Output 07/29/20 07/30/20 07/30/20 18:59 06:59 18:59 Intake Total 1400 240 240 Output Total 1130 1280 500 Balance 270 -1040 -260 Weight 131.542 kg Intake: IV 1400 Piperacillin-Tazobactam 3 100 .375 gm In Sodium Chloride 0.9% 100 ml @ 25 mls/hr IVPB Q8HR [facility] Rx# :[id number] Sodium Chloride 0.9% 1, 800 000 ml @ 75 mls/hr IV . [id number] [facility] Rx#:[id number] Vancomycin 2,250 mg In 500 Sodium Chloride 0.9% 500 ml 500 ml @ 167 mls/hr IVPB ONCE ONE Rx#: [id number] Oral 240 240 Output: Drainage 30 80 Anterior Abdomen 30 80 Urine 1100 1200 500 Other: # Voids 2 - Exam PHYSICAL EXAMINATION: GENERAL: The patient is alert and oriented x3, not in any acute distress. Well developed, well nourished. HEENT: Pupils are round and equally reacting to light. EOMI. No scleral icterus. No conjunctival pallor. Normocephalic, atraumatic. No pharyngeal erythema. No thyromegaly. CARDIOVASCULAR: S1 and S2 present. No murmurs, rubs, or gallops. PULMONARY: Chest is clear to auscultation, no wheezing or crackles. ABDOMEN: Soft, surgical site areas appear to be clean bowel sounds. No palpable organomegaly. MUSCULOSKELETAL: No joint swelling or deformity. EXTREMITIES: No cyanosis, clubbing, or pedal edema. NEUROLOGICAL: Gross neurological examination did not reveal any focal deficits. SKIN: No rashes. - Labs CBC & Chem 7: 07/30/20 06:28 07/30/20 06:28 Labs: Abnormal Lab Results - Last 24 Hours (Table) 07/29/20 07/29/20 07/29/20 Range/Units 11:13 17:01 19:21 RBC (4.40-5.60) X 10*6/uL Hgb (13.0-17.0) g/dL Hct (39.6-50.0) % Sodium 134 L (137-145) mmol/L Carbon Dioxide (21.6-31.8) mmol/L Glucose 357 H (74-99) mg/dL POC Glucose (mg/dL) 284 H 264 H (75-99) mg/dL Calcium 7.0 L (8.4-10.2) mg/dL Total Protein 5.1 L (6.3-8.2) g/dL Albumin 2.6 L (3.5-5.0) g/dL 07/30/20 07/30/20 07/30/20 Range/Units 06:28 06:28 06:31 RBC 4.18 L (4.40-5.60) X 10*6/uL Hgb 12.7 L (13.0-17.0) g/dL Hct 38.2 L (39.6-50.0) % Sodium (137-145) mmol/L Carbon Dioxide 21.4 L (21.6-31.8) mmol/L Glucose 251 H (74-99) mg/dL POC Glucose (mg/dL) 246 H (75-99) mg/dL Calcium 6.9 L (8.4-10.2) mg/dL Total Protein (6.3-8.2) g/dL Albumin (3.5-5.0) g/dL Microbiology - Last 24 Hours (Table) 07/29/20 11:13 Blood Culture Gram Stain - Preliminary Blood 07/29/20 11:13 Blood Culture - Final Blood 07/28/20 18:00 Gram Stain - Preliminary Aspirate Body Fluid Culture - Preliminary Presumptive Staph aureus 07/27/20 19:20 Blood Culture Gram Stain - Preliminary Blood Blood Culture - Preliminary Staphylococcus aureus Assessment and Plan Plan: -acute cholecystitis: Is postcholecystectomy pain is well-controlled today passing gas -Sepsis secondary to cholecystitis patient also has bacteremia with staph aureus. -Staph aureus bacteremia we'll repeat the cultures today and tomorrow patient is on vancomycin. Still can be from the gallbladder. Infectious disease evaluated the patient -New-onset diabetes mellitus: Uncontrolled elevated blood sugars patient's hemoglobin A1c is 11 patient will be continue on sliding scale insulin along with linag[place]. Patient need to be discharged on 500 twice a day of metformin along with Januvia and metformin dose can be increased as an outpatient and further management of diabetes in very done as an outpatient. -GI prophylaxis with Protonix -History of diverticulitis with colonic resection the past -DVT prophylaxis as per primary service
[2020-07-30 11:53] LABS: Glucose,Whole Blood 207 mg/dL (75-99)
[2020-07-30] MEDS ORDERED: VANCOMYCIN TROUGH DUE 1 EACH MISC MISCELLANE ONE (14:00)
[2020-07-30 17:30] LABS: Glucose,Whole Blood 255 mg/dL (75-99)
--- NOTE | 2020-07-30 17:50 | PN ---
PROGRESS NOTE DATE OF SERVICE: 07/30/2020 REASON FOR FOLLOWUP: Staph aureus bacteremia secondary to acute cholecystitis. INTERVAL HISTORY: Patient is currently afebrile. The patient is breathing comfortably. The patient's abdominal pain has slightly decreased intensity. Denies having any chest pain shortness with cough and no diarrhea. PHYSICAL EXAMINATION: Blood pressure is 146/81, pulse of 88, temperature 98. He is 96% on room air. General description: The patient is a middle-aged male lying in bed in no distress. Respiratory system: Unlabored breathing, clear to auscultation anteriorly. Heart S1, S2. Regular rate and rhythm. ABDOMEN: Soft, mildly tender. Extremities: No edema of the feet. LABS: Hemoglobin is 12.2, white count 7.7, BUN of 30, creatinine 0.7. DIAGNOSTIC IMPRESSION AND PLAN: Patient with Staph aureus bacteremia secondary to cholecystitis status post cholecystectomy. Blood cultures from yesterday showed positive, has been repeated today. We will monitor his blood culture closely, document clearance of bacteremia. He will need IV antibiotic on discharge. Continue Unasyn and vanco at this point. Continue supportive care. MMODL / IJN: [id number] /
[2020-07-30 20:36] LABS: Glucose,Whole Blood 193 mg/dL (75-99)
[2020-07-30] MEDS: VANCOMYCIN 2,500 MG in SODIUM CHLORIDE 0.9% 500 ML 500 ML IVPB SCH (22:03)
[2020-07-31] MEDS: SODIUM CHLORIDE 0.9% 1,000 ML IV SCH (00:56)
[2020-07-31] MEDS: AMPICILLIN-SULBACTAM 3 GM in SODIUM CHLORIDE 0.9% 100 ML IVPB SCH ×2 (00:56→05:10)
[2020-07-31] MEDS: HYDROcodone/APAP 5-325MG 1 EACH TAB PO PRN ×3 (01:41→19:32)
[2020-07-31 06:53] LABS: Glucose,Whole Blood 145 mg/dL (75-99)
[2020-07-31] MEDS: VANCOMYCIN 2,500 MG in SODIUM CHLORIDE 0.9% 500 ML 500 ML IVPB SCH (07:38)
[2020-07-31] MEDS: INSULIN ASPART (NovoLOG) 100 UNIT/ML VIAL SQ SCH ×4 (07:41→21:11)
[2020-07-31] MEDS: LINAGLIPTIN 5 MG TABLET PO SCH (07:41)
[2020-07-31] MEDS: PANTOPRAZOLE 40 MG/10 ML VIAL IV SCH (07:42)
[2020-07-31] MEDS: HEPARIN SODIUM,PORCINE/PF 5,000 UNIT/0.5 ML SYRINGE SQ SCH ×3 (07:42→19:33)
[2020-07-31 09:15] LABS: Basophils # (A) 0.01 X 10*3/uL (0.00-0.10); Basophils % (A) 0.2 %; Eosinophils # (A) 0.25 X 10*3/uL (0.04-0.35); Eosinophils % (A) 3.9 %; HCT 37.5 % (39.6-50.0); HGB 12.7 g/dL (13.0-17.0); Lymphocytes # (A) 1.14 X 10*3/uL (0.90-5.00); Lymphocytes % (A) 17.9 %; MCH 30.5 pg (27.0-32.0); MCHC 33.9 g/dL (32.0-37.0); MCV 90.1 fL (80.0-97.0); Mean Platelet Volume 11.9 fL (9.5-12.2); Monocytes # (A) 0.49 X 10*3/uL (0.20-1.00); Monocytes % (A) 7.7 %; Neutrophils # (A) 4.43 X 10*3/uL (1.80-7.70); Neutrophils % (A) 69.7 %; Platelet Count 186 X 10*3/uL (140-440); RBC 4.16 X 10*6/uL (4.40-5.60); WBC 6.36 X 10*3/uL (4.50-10.00)
[2020-07-31 10:28] LABS: African American GFR (CKD) 140.7 (60.0-200.0); Albumin 3.1 g/dL (3.80-4.90); Albumin/Globulin Ratio 1.55 (1.60-3.17); Anion Gap 7.1 mmol/L (4.00-12.00); Calcium 7.4 mg/dL (8.7-10.3); Carbon Dioxide 23.9 mmol/L (21.6-31.8); Non-African American GFR(CKD) 121.4 (60.0-200.0); Potassium 3.5 mmol/L (3.5-5.5); Total Bilirubin 0.5 mg/dL (0.3-1.2); Total Protein 5.1 g/dL (6.2-8.2)
[2020-07-31 11:20] LABS: Glucose,Whole Blood 209 mg/dL (75-99)
--- NOTE | 2020-07-31 15:14 | PN ---
PROGRESS NOTE DATE OF SERVICE: 07/31/2020 This 44-year-old gentleman who was admitted with acute cholecystitis, had surgery. Patient also has sepsis also, outpatient antibiotics are being arranged. No chest pain. No palpitations. No fever. PHYSICAL EXAMINATION: The patient is alert and oriented x3. Pulse is 74, blood pressure 138/86, respiration 18, temperature 98.1, pulse ox 97% on room air. HEENT: Conjunctivae normal. NECK: No jugular venous distention. CARDIOVASCULAR: S1, S2 muffled. RESPIRATORY: Breath sounds diminished at the bases. ABDOMEN: Soft, status post surgery. LEGS: No edema. NERVOUS SYSTEM: No focal deficit. LABS: WBC 6.3, hemoglobin 12.7. Glucose 145 and 209. Albumin is 3.1. Cultures are MSSA. ASSESSMENT: 1. Acute cholecystitis, status post cholecystectomy. 2. MSSA sepsis possibly secondary to cholecystitis. 3. New onset diabetes mellitus type 2. 4. Gastrointestinal prophylaxis. 5. History of diverticulitis. 6. Deep vein thrombosis prophylaxis. 7. Anemia, normocytic. RECOMMENDATIONS AND DISCUSSION: This 44-year-old gentleman who presented with multiple medical issues, we will monitor the patient closely. Continue the current medications, continue symptomatic treatment. Otherwise at this time I would recommend close followup with Dr. Gong in the outpatient setting. Otherwise, outpatient antibiotics, cefazolin has been arranged. Continue with Tradjenta. Monitor blood sugars closely. Guarded prognosis. Further recommendations to follow. MMODL / IJN: [id number] /
[2020-07-31 17:22] LABS: Glucose,Whole Blood 278 mg/dL (75-99)
--- NOTE | 2020-07-31 18:54 | P.PN ---
Subjective Progress Note Date: 07/31/20 Patient seen and examined at bedside. States he is feeling much better. ANTIONE drain in place with continued decreased output serosanguineous. Objective - Vital Signs Vital signs: Vital Signs Temp 98.1 F 07/31/20 07:00 Pulse 74 07/31/20 07:00 Resp 18 07/31/20 07:00 BP 138/85 07/31/20 07:00 Pulse Ox 97 07/31/20 07:00 Intake & Output 07/30/20 07/31/20 07/31/20 18:59 06:59 18:59 Intake Total 1317 Output Total 930 1270 20 Balance 387 -1270 -20 Intake: IV 600 Ampicillin-Sulbactam 3 gm 100 In Sodium Chloride 0.9% 100 ml @ 200 mls/hr IVPB Q6HR [facility] Rx#:[id number] Vancomycin 2,000 mg In 500 Sodium Chloride 0.9% 500 ml 500 ml @ 167 mls/hr IVPB Q8H [facility] Rx#: [id number] Oral 717 Output: Drainage 30 60 20 Anterior Abdomen 30 60 20 Urine 900 1210 Other: Voiding Method Urinal # Voids 1 - Constitutional General appearance: Present: cooperative, no acute distress - Gastrointestinal Gastrointestinal Comment(s): soft, appropriate tenderness, nondistended, no rebound or guarding, ANTIONE in place with serosanguinous output - Psychiatric Psychiatric: Present: A&O x's 3 - Labs CBC & Chem 7: 07/31/20 04:51 07/31/20 04:51 Labs: Abnormal Lab Results - Last 24 Hours (Table) 07/30/20 07/30/20 07/31/20 Range/Units 17:20 20:34 04:51 RBC (4.40-5.60) X 10*6/uL Hgb (13.0-17.0) g/dL Hct (39.6-50.0) % Glucose 165 H (70-110) mg/dL POC Glucose (mg/dL) 255 H 193 H (75-99) mg/dL Calcium 7.4 L (8.7-10.3) mg/dL Total Protein 5.1 L (6.2-8.2) g/dL Albumin 3.10 L (3.80-4.90) g/dL Albumin/Globulin Ratio 1.55 L (1.60-3.17) g/dL 07/31/20 07/31/20 07/31/20 Range/Units 04:51 06:52 11:17 RBC 4.16 L (4.40-5.60) X 10*6/uL Hgb 12.7 L (13.0-17.0) g/dL Hct 37.5 L (39.6-50.0) % Glucose (70-110) mg/dL POC Glucose (mg/dL) 145 H 209 H (75-99) mg/dL Calcium (8.7-10.3) mg/dL Total Protein (6.2-8.2) g/dL Albumin (3.80-4.90) g/dL Albumin/Globulin Ratio (1.60-3.17) g/dL Microbiology - Last 24 Hours (Table) 07/30/20 06:28 Blood Culture - Preliminary Blood No Growth after 24 hours 07/29/20 11:13 Blood Culture Gram Stain - Preliminary Blood Blood Culture - Preliminary Presumptive Staph aureus 07/28/20 18:00 Gram Stain - Final Aspirate Body Fluid Culture - Final Staphylococcus aureus 07/27/20 19:20 Blood Culture Gram Stain - Final Blood Blood Culture - Final Staphylococcus aureus Assessment and Plan Plan: Postoperative day #3, laparoscopic cholecystectomy for acute cholecystitis - Positive blood cultures, pending cultures of gallbladder purulent fluid a spirate - PICC line to be placed when repeat blood cultures are noted negative - Antibiotics to be managed by infectious disease, awaiting repeat blood cultures - Continue ANTIONE drain at this time, likely discontinue tomorrow - Continue to increase activity - Incentive spirometry - Pain control
[2020-07-31 20:55] LABS: Glucose,Whole Blood 255 mg/dL (75-99)
[2020-08-01 07:10] LABS: Glucose,Whole Blood 210 mg/dL (75-99)
[2020-08-01] MEDS: HEPARIN SODIUM,PORCINE/PF 5,000 UNIT/0.5 ML SYRINGE SQ SCH ×2 (07:44→15:43)
[2020-08-01] MEDS: INSULIN ASPART (NovoLOG) 100 UNIT/ML VIAL SQ SCH ×2 (07:44→12:15)
[2020-08-01] MEDS: LINAGLIPTIN 5 MG TABLET PO SCH (07:45)
[2020-08-01] MEDS: PANTOPRAZOLE 40 MG/10 ML VIAL IV SCH (07:45)
[2020-08-01 08:05] VITALS: RESP 16
[2020-08-01 11:47] LABS: Glucose,Whole Blood 179 mg/dL (75-99)
--- NOTE | 2020-08-01 12:55 | P.PN ---
Progress Note - Text Progress Note Date: 08/01/20 This is a 44-year-old male who was recently admitted with acute cholecystitis also was found to have new onset diabetes mellitus type 2 and will continue with oral diabetic medications along with sliding scale insulin and will be required to test his blood sugars 3 times daily to closely monitor his glucose levels. Patient will also need a glucometer and testing supplies to be testing 3 times daily.
--- NOTE | 2020-08-01 14:14 | PN ---
PROGRESS NOTE DATE OF SERVICE: 08/01/2020 REASON FOR FOLLOWUP: MSSA bacteremia secondary to cholecystitis. INTERVAL HISTORY: The patient is currently afebrile. The patient is breathing comfortably. The patient's pain to the upper abdominal area is currently controlled. No chest pain or shortness of breath. No cough. No diarrhea. Currently waiting for outpatient antibiotic therapy arrangement before discharge. PHYSICAL EXAMINATION: Blood pressure 159/61, pulse 76, temperature 98.3. He is 97% on room air. General description is a middle-aged male up in the bed in no distress. Respiratory system: Unlabored breathing, clear to auscultation anteriorly. Heart S1, S2. Regular rate and rhythm. Abdomen: Soft, no tenderness. LABORATORY DATA: Blood culture repeat 07/30 has been negative. DIAGNOSTIC IMPRESSION AND PLAN: Patient with MSSA bacteremia secondary to the cholecystitis, status post laparoscopic cholecystectomy. Abdominal culture positive for MSSA. Blood culture positive for MSSA as well. Repeat blood culture has been negative. We will get a midline. Plan is for cefazolin 2 grams q.8 hours for total of 2 weeks from negative blood cultures. Continue supportive care. MMODL / IJN: [id number] /
[2020-08-01 14:17] VITALS: BP 162/90; PULSE 73; TEMP 98.4
--- NOTE | 2020-08-01 15:33 | PN ---
PROGRESS NOTE DATE OF SERVICE: 08/01/2020 This 44-year-old gentleman who was admitted with acute cholecystitis also had MSSA sepsis. Patient also has new onset diabetes mellitus type 2. Patient started on Tradjenta. No chest pain. No palpitations. No fever. Blood sugars are controlled. PHYSICAL EXAMINATION: Alert and oriented x3. Pulse 73, blood pressure 160/90, respirations 16, temperature 98.4, pulse ox 97% on room air. HEENT: Conjunctivae normal. NECK: No JVD. CARDIOVASCULAR: S1, S2. RESPIRATORY: Breath sounds diminished in the bases. No rhonchi. No crackles. ABDOMEN: Soft, nontender. LEGS are no edema. No swelling. LAB STUDIES: Accu-Cheks 278 and 255. Hemoglobin A1c of 11.4. ASSESSMENT: 1. Acute cholecystitis, status post cholecystectomy. 2. MSSA sepsis possibly secondary to cholecystitis. 3. New onset diabetes type 2. 4. Gastrointestinal prophylaxis. 5. History of diverticulosis. 6. DVT prophylaxis. 7. Anemia, normocytic. RECOMMENDATIONS AND DISCUSSION: I recommend to continue current medications, management and symptomatic treatment. Otherwise, at this time, I will continue with Accu-Cheks a.c. Monitor Accu-Cheks closely at home and follow closely with primary physician in the outpatient setting. Further recommendations to follow. MMODL / IJN: [id number] /
--- NOTE | 2020-08-01 15:34 | P.DS ---
Providers Date of admission: 07/29/20 11:31 Attending physician: Lanie Kurtz DO Consults: 07/27/20 21:20 Consult Physician Stat Consulting Provider: Adeola Serrano Consult Reason/Comments: medical management Do you want consulting provider notified?: Yes 07/29/20 11:52 Consult Physician Routine Consulting Provider: Eula Dowell Consult Reason/Comments: Staph aureus bacteremia Do you want consulting provider notified?: Yes Primary care physician: Isac [facility] Course: 44 yr old male presented to the ER with complaints of abdominal pain. On work- up, there was concern for acute cholecystitis. Patient was taken to OR for lap cholecystectomy with notable purulent gallbladder. He was also found to have positive blood cultures. Post-op he was managed on the med/surg floor. He was followed by Internal medicine and infectious disease. He improved throughout his admission. JPO drain was serosanguinous throughout admission and discontinued prior to discharge.He was also diagnosed with diabetes mellitus during admission. Plan is for discharge home with home health for IV abx. Internal medicine recommending diabetic regimen on discharge. He is surgically stable for discharge. Health Concerns: Diabetes Mellitus Procedures: Laparoscopic Cholecystectomy Patient Condition at Discharge: Fair Plan - Discharge Summary Discharge Rx Participant: No New Discharge Prescriptions: New metroNIDAZOLE [Flagyl] 500 mg PO TID #42 tab ceFAZolin [Kefzol] 2 gm IVP Q8HR #42 vial INSULIN ASPART (NovoLOG) [NovoLOG (formulary)] 0 unit SQ ACHS 30 Days #4 vial Linagliptin [Tradjenta] 5 mg PO DAILY 30 Days #30 tablet HYDROcodone/APAP 5-325MG [Henriette 5-325] 1 each PO Q6HR PRN #12 tab PRN Reason: Pain Acetaminophen Tab [Tylenol] 650 mg PO Q6HR PRN tab PRN Reason: Fever And/ Or Pain Continue Ibuprofen [Advil] 400 mg PO Q8H PRN PRN Reason: Pain Discharge Medication List Ibuprofen [Advil] 400 mg PO Q8H PRN 07/27/20 [History] Acetaminophen Tab [Tylenol] 650 mg PO Q6HR PRN tab 08/01/20 [Rx] HYDROcodone/APAP 5-325MG [Henriette 5-325] 1 each PO Q6HR PRN #12 tab 08/01/20 [Rx] INSULIN ASPART (NovoLOG) [NovoLOG (formulary)] 0 unit SQ ACHS 30 Days #4 vial 08/01/20 [Rx] Linagliptin [Tradjenta] 5 mg PO DAILY 30 Days #30 tablet 08/01/20 [Rx] ceFAZolin [Kefzol] 2 gm IVP Q8HR #42 vial 08/01/20 [Rx] metroNIDAZOLE [Flagyl] 500 mg PO TID #42 tab 08/01/20 [Rx] Follow up Appointment(s)/Referral(s): [facility] [place], [NON-STAFF] - 08/02/20 Isac Gong MD [Primary Care Provider] - 1-2 days [facility]Infusion [NON-STAFF] - 08/02/20 Eula Dowell MD [STAFF PHYSICIAN] - 1 Week Lanie Kurtz DO [Doctor of Osteopathic Medicine] - 2 Weeks Patient Instructions/Handouts: *Surgery [facility] - Laparoscopic Cholecystectomy Torri marques Instructions, Bacteremia (DC) Activity/Diet/Wound Care/Special Instructions: [employer] is a supplier of your glucometer and blood sugar testing supplies. Continue with consistent carb heart healthy diet NovoLog sliding scale 0-150 equals 0 units 151-200 equals 2 units 201-250 equals 4 units 251-300 equals 6 units 301-350 equals 8 units 351-400 equals 10 units Please notify provider if blood sugar is 400 or above Continue monitor blood sugars before meals and at bedtime and keep a diary for primary follow-up Discharge Disposition: HOME WITH HOME HEALTH SERVICES
[2020-08-01] MEDS ORDERED: metroNIDAZOLE 500 MG TAB PO SCH (16:00)
== END 2020-08-01 17:18 | disposition home health service (06) | DRG 854 ==
LOC: EC 12:28 → 6NMEDSUR 15:49 → OBSVTOIN 07-29 11:31
PROVIDERS: ADMIT Surgery; ATTEND Surgery
PROC: 0FT44ZZ Resection of Gallbladder, Percutaneous Endoscopic Approach (ICD-10-PCS; principal; 2020-07-28 07:30)
DX: A41.01 Sepsis due to Methicillin susceptible Staphylococcus aureus (principal); K80.00 Calculus of gallbladder with acute cholecystitis without obstruction; D64.9 Anemia, unspecified; E11.65 Type 2 diabetes mellitus with hyperglycemia; K82.8 Other specified diseases of gallbladder; Z87.891 Personal history of nicotine dependence; Z90.49 Acquired absence of other specified parts of digestive tract; Z87.19 Personal history of other diseases of the digestive system
CPT/HCPCS: 36410; 36415; 76705; 76937; 80048; 80053; 80202; 81003; 82150; 83036; 83605; 83690; 85025; 85027; 87040; 87070; 87077; 87186; 87205; 87635; 88304; 96360; 96361; 99285

== ENCOUNTER → 2022-03-20 | Outpatient (CLI) | payer OTHER ==
--- NOTE | 2022-03-20 14:33 | US ---
EXAMINATION TYPE: US extremity nonvasc mass LT DATE OF EXAM: 03/20/2022 COMPARISON: NONE CLINICAL HISTORY: D179 LIPOMA. pt has two soft tissue oval palpable masses at the anterior medial asp ect of his upper arm Technique: Grayscale imaging of the area of patient's arm in the area of concern. Findings. Scanned over the patient's areas of concern. There are two lipomas, measuring 12 x 5 x 10mm and 12 x 5 x 12mm that correspond to the palpable areas. No suspicious masses or organizing fluid collections . IMPRESSION: Findings most consistent with lipomas in the area of palpable abnormality.
--- NOTE | 2022-03-20 14:52 | XR ---
EXAMINATION TYPE: XR chest 2V DATE OF EXAM: 03/20/2022 2:23 PM COMPARISON: None TECHNIQUE: XR chest 2V Frontal and lateral views of the chest. CLINICAL INDICATION:Male, 46 years old with history of R0602 SHORTNESS OF BREATH; FINDINGS: Lungs/Pleura: There is no evidence of pleural effusion, focal consolidation, or pneumothorax. Pulmonary vascularity: Unremarkable. Heart/mediastinum: Cardiomediastinal silhouette is unremarkable. Musculoskeletal: No acute osseous pathology. IMPRESSION: No acute cardiopulmonary disease/process.
--- NOTE | 2022-03-20 14:53 | XR ---
EXAMINATION TYPE: XR shoulder complete RT DATE OF EXAM: 03/20/2022 2:23 PM INDICATION: Patient age:Male; 46 years old; Reason for study: [id number] RIGHT SHOULDER PAIN; COMPARISON: None TECHNIQUE: The right shoulder was examined in AP, internally rotated and scapular Y projections. . FINDINGS: No evidence of acute osseous pathology, joint dislocation, or soft tissue swelling. The remaining por tions of the visualized chest are unremarkable. IMPRESSION: 1. No acute osseous pathology. 2. No significant degeneration changes.
== END | disposition home or self-care (01) ==
LOC: RADUSWWP 13:42
PROVIDERS: ATTEND Pediatrics
DX: D17.9 Benign lipomatous neoplasm, unspecified (principal); M25.511 Pain in right shoulder; R06.02 Shortness of breath
CPT/HCPCS: 71046

== ENCOUNTER 2023-11-17 10:09 | Observation (INO) | payer BC, OTHER ==
--- NOTE | 2023-11-17 10:26 | ED ---
Chest Pain HPI - General Chief Complaint: Chest Pain Stated Complaint: Chest Pain Time Seen by Provider: 11/17/23 10:14 Source: patient, EMS, RN notes reviewed Mode of arrival: EMS Limitations: no limitations - History of Present Illness Initial Comments: This is a 48-year-old male who presents to the emergency department for chest pain. 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 Describes this as a cramping sensation. Pain was in the back as well and his arm felt sore. He was given 4 baby aspirin and 3 NTG's by EMS en route with improvement in symptoms. Denies any personal cardiac history. He does have a family history of cardiac problems in his parents. Both have congestive heart failure. His mother has had several heart attacks, but believes that she was in her 60s when this occurred. He does have both diabetes and elevated blood pressure. He is also a smoker. States that he h ad shortness of breath when the pain occurred, but that has also started to subside to some extent. MD Complaint: chest pain - Related Data Home Medications Medication Instructions Recorded Confirmed Lisinopril-Hctz 20-25 mg 1 tab PO DAILY PRN 11/17/23 11/17/23 [Zestoretic 20-25] Allergies Allergy/AdvReac Type Severity Reaction Status Date / Time No Known Allergies Allergy Verified 11/17/23 11:41 Review of Systems ROS Statement: Those systems with pertinent positive or pertinent negative responses have been documented in the HPI. ROS Other: All systems not noted in ROS Statement are negative. Past Medical History Past Medical History: Diabetes Mellitus, Hypertension Additional Past Medical History / Comment(s): diverticulitis History of Any Multi-Drug Resistant Organisms: None Reported Past Surgical History: No Surgical Hx Reported Additional Past Surgical History / Comment(s): colon resection w/ colostomy reversal 2019 Past Anesthesia/Blood Transfusion Reactions: No Reported Reaction Past Psychological History: No Psychological Hx Reported Smoking Status: Former smoker Past Alcohol Use History: Occasional Past Drug Use History: None Reported General Exam Limitations: no limitations General appearance: alert, in no apparent distress Head exam: Present: atraumatic, normocephalic, normal inspection Respiratory exam: Present: normal lung sounds bilaterally. Absent: respiratory distress, wheezes, rales, rhonchi, stridor Cardiovascular Exam: Present: regular rate, normal rhythm, normal heart sounds. Absent: systolic murmur, diastolic murmur, rubs, gallop, clicks Neurological exam: Present: alert, oriented X3, CN II-XII intact Psychiatric exam: Present: normal affect, normal mood Skin exam: Present: warm, dry, intact, normal color. Absent: rash Course Vital Signs 11/17/23 11/17/23 11/17/23 10:11 13:00 15:00 Temperature 97.8 F Pulse Rate 77 70 80 Respiratory 16 16 16 Rate Blood Pressure 159/107 141/96 125/80 O2 Sat by Pulse 94 L 96 96 Oximetry Chest Pain MDM - MDM This is a 48 year old male who presents to the emergency department for chest pain. Was pt. sent in by a medical professional or institution? @ -No Did you speak to anyone other than the patient for history? @ -No Did you review nursing and triage notes? @ -Yes, and I agree, it is accurate with regards to the patient's symptoms. Were old charts reviewed? @ -No Differential Diagnosis? @ -Differential Chest Pain: Stable Angina, Unstable Angina, STEMI, NSTEMI Aortic Dissection, Pneumothorax, Musculoskeletal, Esophageal Spasm GERD, Cholecystitis, Pancreatitis, Zoster, this is not meant to be an all-inclusive list. EKG interpreted by me (3pts min.)? @ -EKG interpreted by me demonstrating the following: Sinus rhythm. Ventricular rate 70 bpm, TN interval 147 ms, QRS duration 117 ms, QTc 403 ms. X-rays interpreted by me (1pt min.)? @ -Chest x-ray obtained, my interpretation identifies no localized consolidations or infiltrates. CT interpreted by me (1pt min.)? @ -Not obtained U/S interpreted by me (1pt. min.)? @ -Not obtained What testing was considered but not performed? (CT, X-rays, U/S, labs)? Why? @ -None What meds were considered but not given? Why? @ -None Did you discuss the management of the patient with other professionals? @ -Yes, Dr. Batista, who accepts the patient for admission. Did you reconcile home meds? @ -Yes Was smoking cessation discussed for >3mins.? @ -I discussed smoking cessation for greater than 3 minutes. The risk of smoking were discussed with the patient including but not limited to risks of cancer, stroke, coronary artery disease and COPD. Also discussed with patient were multiple methods of quitting smoking. Lastly we discussed the financial cost of smoking. Was critical care preformed (if so, how long)? @ -No Were there social determinants of health that impacted care today? How? (Homelessness, low income, unemployed, alcoholism, drug addiction, transportation, low edu. Level, literacy, decrease access to med. care, correction, rehab)? @ -No Was there de-escalation of care discussed even if they declined? (Discuss DNR or withdrawal of care, Hospice)? @ -No What co-morbidities impacted this encounter? (DM, HTN, Smoking, COPD, CAD, Cancer, CVA, Hep., AIDS, mental health diagnosis, sleep apnea, morbid obesity)? @ -HTN, DM, smoking, morbid obesity Was patient admitted / discharged? @ -Admitted. By the time he had gotten to the emergency department, he had received 324 mg of aspirin as well as 3 nitroglycerin. Pain had improved substantially but was still approximately a 3 out of 10. Nitro-Bid was then applied. Lab work was fairly unremarkable, including a negative troponin and negative D-dimer. Pain on reevaluation had completely resolved with Nitro-Bid. Patient's heart score is 5. Given his risk factors with elevated heart score and resolution of symptoms with Nitro-Bid, patient admitted to medicine for chest pain observation. Consult placed for cardiology and serial troponins were ordered. Case discussed with ED attending, Dr. Fontenot. Undiagnosed new problem with uncertain prognosis? @ -None Drug Therapy requiring intensive monitoring for toxicity (Heparin, Nitro, Insulin, Cardizem)? @ -None Were any procedures done? @ -None Diagnosis/symptom? @ -Chest pain Acute, or Chronic, or Acute on Chronic? @ -Acute Uncomplicated (without systemic symptoms) or Complicated (systemic symptoms)? @ -Uncomplicated Side effects of treatment? @ -None Exacerbation, Progression, or Severe Exacerbation] @ -Not applicable Poses a threat to life or bodily function? @ -Yes, if due to a cardiac pathology it can lead to . Disposition Clinical Impression: Chest pain, Nicotine dependence Disposition: ADMITTED IP TO THIS HOSP
[2023-11-17] MEDS: NITROGLYCERIN OINT 1 INCH/GM PACKET TOPICAL STA (10:40)
[2023-11-17 10:42] LABS: Basophils % (A) 1 %; Eosinophils # (A) 0.3 k/uL (0-0.7); Eosinophils % (A) 4 %; HCT 47.4 % (39.0-53.0); HGB 16.2 gm/dL (13.0-17.5); Lymphocytes # (A) 2.1 k/uL (1.0-4.8); Lymphocytes % (A) 26 %; MCH 30.9 pg (25.0-35.0); MCHC 34.1 g/dL (31.0-37.0); MCV 90.4 fL (80.0-100.0); Mean Platelet Volume 8.8; Monocytes # (A) 0.3 k/uL (0-1.0); Monocytes % (A) 3 %; Neutrophils # (A) 5.2 k/uL (1.3-7.7); Neutrophils % (A) 65 %; Platelet Count 164 k/uL (150-450); RBC 5.25 m/uL (4.30-5.90); WBC 8.1 k/uL (3.8-10.6)
[2023-11-17 10:55] LABS: ALT 60 U/L (4-49); AST 43 U/L (17-59); African American GFR (CKD) >90 (>60 ml/min/1.73 sqM); Albumin 3.5 g/dL (3.5-5.0); Alkaline Phosphatase 127 U/L (38-126); Anion Gap 4 mmol/L; Blood Urea Nitrogen 12 mg/dL (9-20); Calcium 8.5 mg/dL (8.4-10.2); Carbon Dioxide 22 mmol/L (22-30); Chloride 111 mmol/L (98-107); Glucose 273 mg/dL (74-99); Lipase 170 U/L (23-300); Magnesium 1.6 mg/dL (1.6-2.3); Non-African American GFR(CKD) >90 (>60 ml/min/1.73 sqM); Potassium 3.7 mmol/L (3.5-5.1); Sodium 137 mmol/L (137-145); Total Bilirubin 0.7 mg/dL (0.2-1.3); Total Protein 6.1 g/dL (6.3-8.2)
[2023-11-17 10:59] LABS: Partial Thromboplastin Time 27.1 sec (22.0-30.0); Prothrombin Time 10.8 sec (10.0-12.5)
[2023-11-17 11:01] LABS: NT-Pro-B-Type Natriuretic Pept 80 pg/mL
--- NOTE | 2023-11-17 11:27 | XR ---
EXAMINATION TYPE: XR chest 2V DATE OF EXAM: 11/17/2023 11:10 AM CLINICAL INDICATION: Male, 48 years old with history of Chest Pain; COMPARISON: None TECHNIQUE: XR chest 2V Frontal view of the chest. FINDINGS: Lungs/Pleura: There is no evidence of pleural effusion, focal consolidation, or pneumothorax. Pulmonary vascularity: Unremarkable. Heart/mediastinum: Cardiomediastinal silhouette is unremarkable. Musculoskeletal: No acute osseous pathology. Other findings: None IMPRESSION: No acute cardiopulmonary disease/process.
[2023-11-17] MEDS ORDERED: MORPHINE SULFATE 4 MG/ML SYRINGE IV PRN (11:37)
[2023-11-17] MEDS ORDERED: ONDANSETRON 4 MG/2 ML VIAL IVP PRN (11:37)
[2023-11-17] MEDS ORDERED: ACETAMINOPHEN TAB 325 MG TAB PO PRN (11:37)
[2023-11-17] MEDS ORDERED: HYDROcodone/APAP 5-325MG 1 EACH TAB PO PRN (11:37)
[2023-11-17] MEDS ORDERED: NALOXONE 0.4 MG/ML 1 ML VIAL IV PRN (11:37)
[2023-11-17] MEDS ORDERED: LISINOPRIL-HCTZ 20-25 MG 1 EACH TAB PO PRN (11:50)
[2023-11-17] MEDS ORDERED: DEXTROSE 50% SYRINGE 50 ML IVP PRN ×2 (17:04)
--- NOTE | 2023-11-17 17:05 | P.HPIM ---
History of Present Illness H&P Date: 11/17/23 Chief Complaint: Chest pain Pleasant 48-year-old patient who follows with Dr. Bravo Gong. Has a known history of hypertension. Takes Zestoretic off-and-on when he thinks his blood pressure is up. This morning around 630 patient was at work. [place] pain in the chest which referred from the back to the front. It was there till about 9:00 when patient came to the ER here. EMS gave him aspirin and some nitroglycerin and the pain has resolved by the time. Patient does note at night. Does always feel tired. Has reflux symptoms. He also felt some discomfort heaviness in the left arm. Mother has heart disease. Review of systems: GEN.: Tired EYES: None HEENT: None NECK: None RESPIRATORY: None CARDIOVASCULAR: As above, no edema GASTROINTESTINAL: Occasional GERD GENITOURINARY: None MUSCULOSKELETAL: None LYMPHATICS: None HEMATOLOGICAL: None PSYCHIATRY: [Occasional anxiety NEUROLOGICAL: None Social history: Does marijuana for some pain. Lives with his fiance. 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 Physical examination: VITAL SIGNS: 97.8, 77, 16, 159/107, 94% room air upon presentation GENERAL: BMI 42.7, retrying but awake tired appearing. EYES: Pupils equal. Conjunctiva stephanie l. HEENT: External appearance of nose and ears normal, oral cavity grossly normal. NECK: JVD not raised; masses not palpable. HEART: First and second heart sounds are normal; no edema. LUNGS: Respiratory rate normal; clear to auscultation. ABDOMEN: Soft, nontender, liver spleen not palpable, no masses palpable. PSYCH: Alert and oriented x3; mood and affect stephanie l. MUSCULOSKELETAL:No Clubbing/cyanosis;muscles-grossly intact NEUROLOGICAL: Cranial nerves grossly intact; no facial asymmetry, power and sensation grossly intact. LYMPHATICS: No lymph nodes palpable in the axilla and neck INVESTIGATIONS, reviewed in the clinical context: November 17, 2023: White count 8.1 hemoglobin 16.2 platelets 164 sodium 137 potassium 3.7 BUN 12 creatinine 0.53. Glucose 2 3 AST 43 ALT 60 troponin I less than 0.012 x 2 proBNP 80 EKG tracing personally reviewed by me-normal sinus rhythm. Chest x-ray film personally reviewed by me-unremarkable Assessment plan: -Chest pain. In a patient with known risk factors of hypertension and positive family history. Obesity. Patient takes his Zestoretic intermittently. Troponin negative. Cardiology consulted. Will need a stress test. Telemetry. Zestoretic. Aspirin. -Essential hypertension, uncontrolled Patient takes Zestoretic intermittently. Will order its scheduled -Hyperglycemia. Rule out diabetes. Accu-Cheks with sliding scale insulin. Glycosylated hemoglobin. -Marijuana use intermittently -Morbid obesity BMI 42.7 Weight loss measures -GERD Pepcid -Patient has history of snoring and does feel tired. Will need outpatient sleep apnea testing Care was discussed with the patient. Patient's mother and father at the bedside. Questions answered. Past Medical History Past Medical History: Diabetes Mellitus, Hypertension Additional Past Medical History / Comment(s): diverticulitis History of Any Multi-Drug Resistant Organisms: None Reported Past Surgical History: No Surgical Hx Reported Additional Past Surgical History / Comment(s): colon resection w/ colostomy reversal 2018 Past Anesthesia/Blood Transfusion Reactions: No Reported Reaction Past Psychological History: No Psychological Hx Reported Smoking Status: Former smoker Past Alcohol Use History: Occasional Past Drug Use History: None Reported Medications and Allergies Home Medications Medication Instructions Recorded Confirmed Type Lisinopril-Hctz 20-25 mg 1 tab PO DAILY PRN 11/17/23 11/17/23 History [Zestoretic 20-25] Allergies Allergy/AdvReac Type Severity Reaction Status Date / Time No Known Allergies Allergy Verified 11/17/23 11:41 Physical Exam Vitals: Vital Signs Temp Pulse Resp BP Pulse Ox 11/17/23 15:00 80 16 125/80 96 11/17/23 13:00 70 16 141/96 96 11/17/23 10:11 97.8 F 77 16 159/107 94 L Intake and Output 11/17/23 11/17/23 11/17/23 06:59 14:59 22:59 Other: Weight 131.088 kg Results CBC & Chem 7: 11/17/23 10:25 11/17/23 10:25 Labs: Abnormal Lab Results - Last 24 Hours (Table) 11/17/23 Range/Units 10:25 Chloride 111 H (98-107) mmol/L Creatinine 0.53 L (0.66-1.25) mg/dL Glucose 273 H (74-99) mg/dL ALT 60 H (4-49) U/L Alkaline Phosphatase 127 H (38-126) U/L Total Protein 6.1 L (6.3-8.2) g/dL
[2023-11-17 17:25] LABS: Glucose,Whole Blood 364 mg/dL (70-110)
[2023-11-17] MEDS: INSULIN ASPART (NovoLOG) 100 UNIT/ML VIAL SQ SCH (17:30)
[2023-11-17] MEDS: ENOXAPARIN 40 MG/0.4 ML SYRINGE SQ SCH (17:30)
[2023-11-17] MEDS: LISINOPRIL-HCTZ 20-25 MG 1 EACH TAB PO SCH (21:39)
[2023-11-17] MEDS: FAMOTIDINE 20 MG TAB PO SCH (21:39)
[2023-11-18 02:39] LABS: Chol/HDL Ratio 5.03 Ratio
[2023-11-18 05:36] LABS: Glucose,Whole Blood 248 mg/dL (70-110)
[2023-11-18] MEDS ORDERED: PANTOPRAZOLE 40 MG/10 ML VIAL IV SCH (09:00)
[2023-11-18 11:02] VITALS: BMI 42.7
[2023-11-18] MEDS ORDERED: ALPRAZolam 0.25 MG TAB PO PRN (11:44)
[2023-11-18] MEDS ORDERED: NITROGLYCERIN SL TABS 0.4 MG TAB SUBLINGUAL PRN (11:44)
[2023-11-18] MEDS ORDERED: ALPRAZolam 0.5 MG TAB PO PRN (11:44)
[2023-11-18] MEDS: SODIUM CHLORIDE 0.9% 1,000 ML in EMPTY BAG 1 BAG IV SCH (12:01)
[2023-11-18] MEDS: ATORVASTATIN 80 MG TAB PO STA (12:01)
[2023-11-18] MEDS: ASPIRIN 325 MG TAB PO STA (12:01)
[2023-11-18] MEDS: ASPIRIN 81 MG PO SCH (12:01)
--- NOTE | 2023-11-18 12:13 | P.CRDCN ---
History of Present Illness History of present illness: HISTORY OF PRESENT ILLNESS: This is a 48-year-old male with a past medical history significant for hypertension, diabetes, colon resection with colostomy and subsequent reversal, and nicotine dependence. Patient does not follow with a dopster. We have been asked to see the patient in consultation for chest pain. Patient examined at the bedside. Patient states he was at work yesterday when he developed pain in his back that radiated into his chest. The pain lasted for about an hour. He did receive Nitro in EMS which slightly improved the pain. He reports diaphoresis. He reports occasional SOB but states yesterday he did not get SOB with the chest discomfort. Patient denies any chest pain or pressure at the time of examination. Patient's blood pressure was elevated upon admission to the hospital at 159/107. The patient takes lisinoprilhydrochlorothiazide on an outpatient basis however only takes it intermittently. Patient reports his mother has a history of CAD and stenting. DIAGNOSTICS: - EKG reveals sinus mechanism with Q waves inferiorly and T wave inversions in lead III. - Chest xray negative for acute process - Laboratory data: WBC 8.1. Hemoglobin 16.4. Platelet count 164. D-dimer 0.32. Sodium 137. Potassium 3.7. BUN 12. Creatinine 0.53. Troponin negative x 3. proBNP 80. - Current home cardiac medications include lisinoprilhydrochlorothiazide 20-25 mg daily - No previous echocardiogram, stress testing, or cardiac catheterization available in EMR for review REVIEW OF SYSTEMS: At the time of my exam: CONSTITUTIONAL: Denies fever or chills. HEENT: Denies blurred vision, vision changes, or eye pain. Denies hemoptysis CARDIOVASCULAR: Denies chest pain. Denies orthopnea. Denies PND. Denies palpitations RESPIRATORY: Denies shortness of breath. GASTROINTESTINAL: Denies abdominal pain. Denies nausea or vomiting. HEMATOLOGIC: Denies bleeding disorders. GENITOURINARY: Denies any blood in urine. SKIN: Denies pruitis. Denies rash. PHYSICAL EXAM: VITAL SIGNS: Reviewed. GENERAL: Well-developed in no acute distress. HEENT: Head is normocephalic. Pupils are equal, round. Sclerae anicteric. Mucous membranes of the mouth are moist. Neck supple. No JVD or thyromegaly LUNGS: Respirations even and unlabored. Lungs essentially clear to auscultation bilaterally. HEART: Regular rate and rhythm. S1 and S2 heard. ABDOMEN: Soft. Nondistended. Nontender. EXTREMITIES: Normal range of motion. No clubbing or cyanosis. Peripheral pulses intact. No lower extremity edema NEUROLOGIC: Awake and alert. Oriented x 3. ASSESSMENT: Chest pain, troponin negative x 3 Hypertension, uncontrolled on admission Diabetes with hyperglycemia, A1C 10.7% History of colon resection with colostomy and subsequent reversal Nicotine dependence Morbid obesity: BMI 42.7 Daily alcohol use, 1-2 drinks/day Marijuana use PLAN: An acute coronary vein has been ruled out Obtain 2D echo to assess cardiac structure and function Resume home cardiac medications. Medication compliance discussed with patient. Add aspirin and atorvastatin Patient to undergo cardiac catheterization today with Dr. Blackman Further recommendations pending patient course Nurse practitioner note has been reviewed by physician. Signing provider agrees with the documented findings, assessment, and plan of care documented by TIRE DUSTER as a scribe. Past Medical History Past Medical History: Diabetes Mellitus, Hypertension Additional Past Medical History / Comment(s): diverticulitis History of Any Multi-Drug Resistant Organisms: None Reported Past Surgical History: Bowel Resection, Cholecystectomy, Orthopedic Surgery Additional Past Surgical History / Comment(s): colon resection w/ colostomy reversal 2019, three surgeries for broken left wrist Past Anesthesia/Blood Transfusion Reactions: No Reported Reaction Past Psychological History: No Psychological Hx Reported Smoking Status: Former smoker Past Alcohol Use History: Occasional Additional Past Alcohol Use History / Comment(s): quit smoker 2019 Past Drug Use History: None Reported Medications and Allergies Home Medications Medication Instructions Recorded Confirmed Type Lisinopril-Hctz 20-25 mg 1 tab PO DAILY PRN 11/17/23 11/17/23 History [Zestoretic 20-25] Allergies Allergy/AdvReac Type Severity Reaction Status Date / Time No Known Allergies Allergy Verified 11/17/23 11:41 Physical Exam Vitals: Vital Signs Temp Pulse Pulse Resp BP BP Pulse Ox 11/18/23 06:48 98 F 70 17 143/81 97 11/18/23 02:03 98.1 F 69 16 171/95 98 11/17/23 23:22 78 18 135/78 100 11/17/23 20:29 79 16 153/97 97 11/17/23 15:00 80 16 125/80 96 11/17/23 13:00 70 16 141/96 96 11/17/23 10:11 97.8 F 77 16 159/107 94 L Intake and Output 11/17/23 11/18/23 11/18/23 22:59 06:59 14:59 Other: Voiding Method Toilet # Voids 1 Weight 131.088 kg Results 11/17/23 10:25 11/17/23 10:25 Cardiac Enzymes 11/17/23 11/17/23 11/17/23 Range/Units 10:25 10:25 14:34 AST 43 (17-59) U/L Troponin I <0.012 <0.012 (0.000-0.034) ng/mL 11/17/23 Range/Units 17:12 AST (17-59) U/L Troponin I <0.012 (0.000-0.034) ng/mL Coagulation 11/17/23 Range/Units 10:25 PT 10.8 (10.0-12.5) sec APTT 27.1 (22.0-30.0) sec Lipids 11/17/23 Range/Units 10:25 Triglycerides 156.00 H (0.00-149.00) mg/dL Cholesterol 190.00 (0.00-200.00) mg/dL HDL Cholesterol 37.80 L (40.00-60.00) mg/dL Cholesterol/HDL Ratio 5.03 Ratio CBC 11/17/23 Range/Units 10:25 WBC 8.1 (3.8-10.6) k/uL RBC 5.25 (4.30-5.90) m/uL Hgb 16.2 (13.0-17.5) gm/dL Hct 47.4 (39.0-53.0) % Plt Count 164 (150-450) k/uL Comprehensive Metabolic Panel 11/17/23 Range/Units 10:25 Sodium 137 (137-145) mmol/L Potassium 3.7 (3.5-5.1) mmol/L Chloride 111 H (98-107) mmol/L Carbon Dioxide 22 (22-30) mmol/L BUN 12 (9-20) mg/dL Creatinine 0.53 L (0.66-1.25) mg/dL Glucose 273 H (74-99) mg/dL Calcium 8.5 (8.4-10.2) mg/dL AST 43 (17-59) U/L ALT 60 H (4-49) U/L Alkaline Phosphatase 127 H (38-126) U/L Total Protein 6.1 L (6.3-8.2) g/dL Albumin 3.5 (3.5-5.0) g/dL Current Medications Generic Name Dose Route Start Last Admin Trade Name Freq PRN Reason Stop Dose Admin Acetaminophen 650 mg 11/17/23 11:37 Acetaminophen Tab 325 Mg Tab PO Q6HR PRN Mild Pain or Fever > 100.5 Aspirin 81 mg 11/18/23 09:00 Aspirin 81 Mg PO DAILY FLORES Dextrose/Water 25 ml 11/17/23 17:04 Dextrose 50% Syringe 50 Ml IVP PER PROTOCOL PRN Hypoglycemia Protocol Dextrose/Water 50 ml 11/17/23 17:04 Dextrose 50% Syringe 50 Ml IVP PER PROTOCOL PRN Hypoglycemia Protocol Enoxaparin Sodium 40 mg 11/17/23 17:15 11/17/23 17:30 Enoxaparin 40 Mg/0.4 Ml Syringe SQ 40 mg DAILY FLORES Administration Famotidine 20 mg 11/17/23 21:00 11/17/23 21:39 Famotidine 20 Mg Tab PO 20 mg HS FLORES Administration Lisinopril/HCTZ 1 each 11/17/23 21:00 11/17/23 21:39 Lisinopril-Hctz 20-25 Mg 1 Each Tab PO 1 each HS FLORES Administration Insulin Aspart 0 unit 11/17/23 17:30 11/18/23 06:21 Insulin Aspart (Novolog) 100 Unit/Ml Vial SQ 4 unit AC-TID FLORES Administration Protocol Morphine Sulfate 4 mg 11/17/23 11:37 Morphine Sulfate 4 Mg/Ml Syringe IV Q4HR PRN Severe Pain (Scale 7 to 10) Naloxone HCl 0.2 mg 11/17/23 11:37 Naloxone 0.4 Mg/Ml 1 Ml Vial IV Q2M PRN Opioid Reversal Ondansetron HCl 4 mg 11/17/23 11:37 Ondansetron 4 Mg/2 Ml Vial IVP Q8HR PRN Nausea And Vomiting Intake and Output 11/17/23 11/18/23 11/18/23 22:59 06:59 14:59 Other: Voiding Method Toilet # Voids 1 Weight 131.088 kg 11/17/23 10:25 11/17/23 10:25
[2023-11-18 12:18] LABS: Glucose,Whole Blood 217 mg/dL (70-110)
--- NOTE | 2023-11-18 12:55 | CA ---
Transthoracic Echo Report Name: Faheem Bautista Age: 48 Gender: M : 1975 Exam Date: 11/18/2023 10:26 Exam Location: [facility] Ht (in): 69 Wt (lb): 289 Ordering Physician: Becky Hernandez Attending/Referring Phys: Account Auditor Capri Golden RDCS Procedure CPT: Indications: CP Cardiac Hx: Technical Quality: Fair, Technically difficult study Contrast 1: Definity Total Dose (mL): 2 Contrast 2: Total Dose (mL): MEASUREMENTS (Male / Female) Normal Values 2D ECHO LV Diastolic Diameter PLAX 5.1 cm 4.2 - 5.9 / 3.9 - 5.3 cm LV Systolic Diameter PLAX 4.1 cm IVS Diastolic Thickness 1.4 cm 0.6 - 1.0 / 0.6 - 0.9 cm LVPW Diastolic Thickness 1.5 cm 0.6 - 1.0 / 0.6 - 0.9 cm LV Relative Wall Thickness 0.6 RV Internal Dim ED PLAX 2.6 cm LA Systolic Diameter LX 4.4 cm 3.0 - 4.0 / 2.7 - 3.8 cm LV Diastolic Volume MOD BP 92.3 cm??? 67 - 155 / 56 - 104 cm??? LV Systolic Volume MOD BP 35.9 cm??? 22 - 58 / 19 - 49 cm??? LV Ejection Fraction MOD BP 61.1 % >= 55 % LV Cardiac Index MOD BP 1503.7 cm???/min???m??? LV Diastolic Volume MOD 4C 103.4 cm??? LV Systolic Volume MOD 4C 43.6 cm??? LV Ejection Fraction MOD 4C 57.8 % LV Cardiac Index MOD 4C 1592.2 cm???/min???m??? LV Diastolic Length 4C 8.1 cm LV Systolic Length 4C 6.9 cm LV Diastolic Volume MOD 2C 81.2 cm??? LV Systolic Volume MOD 2C 28.6 cm??? LV Ejection Fraction MOD 2C 64.7 % LV Cardiac Index MOD 2C 1400.5 cm???/min???m??? LV Diastolic Length 2C 8.3 cm LV Systolic Length 2C 6.6 cm LA Volume 75.4 cm??? 18 - 58 / 22 - 52 cm??? LA Volume Index 29.1 cm???/m??? 16 - 28 cm???/m??? M-MODE Aortic Root Diameter MM 3.6 cm LA Systolic Diameter MM 4.3 cm LA Ao Ratio MM 1.2 AV Cusp Separation MM 2.1 cm DOPPLER AV Peak Velocity 135.7 cm/s AV Peak Gradient 7.4 mmHg MV Area PHT 3.3 cm??? Mitral E Point Velocity 76.6 cm/s Mitral A Point Velocity 79.1 cm/s Mitral E to A Ratio 1.0 MV Deceleration Time 231.1 ms FINDINGS Left Ventricle Left ventricular ejection fraction is estimated at 55 %. Moderately increased septal wall thickness. Left ventricular cavity size normal. No obvious regional wall motion abnormalities. Right Ventricle Normal right ventricular size and function. Right ventricular systolic pressure within normal limits. Right Atrium Mild right atrial dilatation. Left Atrium Mildly increased left atrial diameter. Mildly increased left atrial volume. Mildly increased left atrial area. Mitral Valve Structurally normal mitral valve. Trace mitral regurgitation. No mitral stenosis. Aortic Valve Trileaflet aortic valve. No aortic valve stenosis or regurgitation. Tricuspid Valve Structurally normal tricuspid valve. No tricuspid stenosis. Trace tricuspid regurgitation. Pulmonic Valve Structurally normal pulmonic valve. No pulmonic regurgitation. No pulmonic stenosis. Pericardium No pericardial or pleural effusion. Aorta Normal size aortic root and proximal ascending aorta. CONCLUSIONS Left ventricular ejection fraction 55% Moderately increased left ventricular wall thickness Mildly dilated left atrium Trace mitral regurgitation Trace tricuspid regurgitation No pericardial effusion Previewed by: Dr. Raul Blackman DO (Electronically Signed) Final Date: 18 November 2023 12:54
[2023-11-18] MEDS ORDERED: HEPARIN SODIUM 1,000 UN/ML (10ML VL) ONE (15:12)
[2023-11-18] MEDS ORDERED: fentaNYL (PF) 50 MCG/ML 2 ML AMP ONE (15:12)
[2023-11-18] MEDS: IV FLUID CONTINUATION 1,000 ML IV ONE (15:15)
[2023-11-18] MEDS: fentaNYL (PF) 50 MCG/ML 2 ML AMP IVP ONE ×2 (15:16→15:19)
[2023-11-18] MEDS: MIDAZOLAM 2 MG/2 ML VIAL IVP ONE ×2 (15:16→15:19)
[2023-11-18] MEDS: LIDOCAINE 1% INJ 10MG/ML (20 ML MDV) SQ ONE (15:19)
[2023-11-18] MEDS: VERAPAMIL SYRINGE (5 MG/10 ML) INTRAARTER ONE (15:20)
[2023-11-18] MEDS: HEPARIN SODIUM 1,000 UN/ML (10ML VL) IV ONE (15:22)
[2023-11-18] MEDS: IOPAMIDOL-370 100ML BTL INJ ONE (15:28)
[2023-11-18] MEDS: HEPARIN SODIUM,PORCINE (1 ML) 2,500 UNIT in SODIUM CHLORIDE 0.9% 250 ML IRRIGATION ONE (15:29)
[2023-11-18] MEDS: HEPARIN SODIUM,PORCINE 10,000 UNIT in SODIUM CHLORIDE 0.9% 1,000 ML IRRIGATION ONE (15:29)
--- NOTE | 2023-11-18 15:55 | P.CARDCATH ---
Description of Procedure: PROCEDURES PERFORMED: Left heart catheterization, bilateral coronary angiography, ultrasound guided arterial access INDICATION: unstable angina CONSENT:I have discussed the risks, benefits and alternative therapies for the above-mentioned procedure and for both sedation/analgesia as well as necessary blood product administration, if indicated, as they pertain to this patient. The patient has indicated understanding and acceptance of the risks and procedures discussed. PROCEDURE: After the risks, benefits and alternatives of the above mentioned procedure explained in detail with the patient, informed consent was obtained. Patient was taken to the catheterization lab and prepped and draped in usual fashion. Ultrasound guidance was used to assess for arterial access. 1% lidocaine was used to anesthetize the right radial artery. A 6-Eritrean sheath was placed in the right radial artery using modified Seldinger technique and ultrasound guidance. Left coronary angiography was performed with a 5-Eritrean JL 3.5 catheter and right coronary angiography was performed with a 5-Eritrean FR5 catheter in various views. A 5-Eritrean FR5 catheter was inserted into the left ventricle and pressure measurements were obtained. The right radial sheath was removed and a TR band was placed with hemostasis achieved. The patient tolerat ed the procedure well. Patient was transported back to the post catheterization holding area in stable condition. Conscious Sedation: Patient was monitored under the direct supervision of myself for conscious sedation using Versed and fentanyl for a total duration of 10 minutes HEMODYNAMICS: Aorta: 132/78 LV: 137/5, LVEDP 17 SELECTIVE CORONARY ARTERIOGRAPHY: LEFT MAIN: The left main is a large caliber vessel which bifurcates into the LAD and circumflex. There is no significant stenosis. LEFT ANTERIOR DESCENDING CORONARY ARTERY: LAD is a large caliber vessel which wraps around to the apex. There is no significant stenosis. LEFT CIRCUMFLEX CORONARY ARTERY: Left circumflex is a moderate caliber vessel without significant stenosis. RIGHT CORONARY ARTERY: The right coronary artery is a large caliber vessel which gives off a PDA and PLV branch and is the dominant vessel. There is no significant stenosis. FINAL IMPRESSION: 1. Normal coronary arteries as described above. 2. Mildly elevated left sided filling pressures PLAN: 1. Aggressive risk factor modification per most recent ACC/AHA guidelines. 2. Follow-up in the office in 1-2 weeks.
[2023-11-18 16:01] VITALS: TEMP 98.3
[2023-11-18 17:11] LABS: Glucose,Whole Blood 244 mg/dL (70-110)
[2023-11-18 17:56] VITALS: RESP 18
[2023-11-18 18:14] VITALS: BP 146/88; PULSE 71
--- NOTE | 2023-11-18 19:41 | P.DS ---
Providers Date of admission: 11/17/23 14:05 Expected date of discharge: 11/18/23 Attending physician: Sukhjinder Batista Consults: 11/17/23 11:37 Consult Physician Urgent Consulting Provider: Darnell Young Consult Reason/Comments: Chest pain Do you want consulting provider notified?: Yes Primary care physician: Isac Gong [facility] Course: Chief Complaint: Chest pain Pleasant 48-year-old patient who follows with Dr. Bravo Gong. Has a known history of hypertension. Takes Zestoretic off-and-on when he thinks his blood pressure is up. This morning around 630 patient was at work. [place] pain in the chest which referred from the back to the front. It was there till about 9:00 when patient came to the ER here. EMS gave him aspirin and some nitroglycerin and the pain has resolved by the time. Patient does note at night. Does always feel tired. Has reflux symptoms. He also felt some discomfort heaviness in the left arm. Mother has heart disease. November 17: Underwent cardiac catheterization. Normal coronaries. Accu-Cheks have been running in 200s. Patient being prescribed metformin to start after another 24 hours. Diet discussed with the patient and at the bedside. Blood pressure medication discussed. Will keep a log of Accu-Cheks. Discussion discharge planning more than 35 minutes Social history: Does marijuana for some pain. Lives with his fiance. Drives a [employer]. Alcohol sometimes. Physical examination: VITAL SIGNS: 146/8896% room air GENERAL: BMI 42.7, comfortable EYES: Pupils equal. Conjunctiva stephanie l. HEENT: External appearance of nose and ears normal, oral cavity grossly normal. NECK: JVD not raised; masses not palpable. HEART: First and second heart sounds are normal; no edema. LUNGS: Respiratory rate normal; clear to auscultation. ABDOMEN: Soft, nontender, liver spleen not palpable, no masses palpable. PSYCH: Alert and oriented x3; mood and affect stephanie l. MUSCULOSKELETAL:No Clubbing/cyanosis;muscles-grossly intact INVESTIGATIONS, reviewed in the clinical context: Accu-Cheks: 248, 217, 244 November 17, 2023: White count 8.1 hemoglobin 16.2 platelets 164 sodium 137 p otassium 3.7 BUN 12 creatinine 0.53. Glucose 2 3 AST 43 ALT 60 troponin I less than 0.012 x 2 proBNP 80 EKG tracing personally reviewed by me-normal sinus rhythm. Chest x-ray film personally reviewed by me-unremarkable Assessment plan: -Chest pain. In a patient with known risk factors of hypertension and positive family history. Obesity. Patient takes his Zestoretic intermittently. Troponin negative. Cardiology consulted. Will need a stress test. Telemetry. Zestoretic. Aspirin. -Diabetes mellitus type 2, new diagnosis Metformin 500 mg twice daily. Diabetic diet. Accu-Cheks daily morning keep log -Essential hypertension, Zestoretic 20/12.5 nightly -Marijuana use intermittently -Morbid obesity BMI 42.7 Weight loss measures -GERD Pepcid -Patient has history of snoring and does feel tired. Will need outpatient sleep apnea testing Disposition: Home. Past Medical History Past Medical History: Diabetes Mellitus, Hypertension Additional Past Medical History / Comment(s): diverticulitis History of Any Multi-Drug Resistant Organisms: None Reported Past Surgical History: No Surgical Hx Reported Additional Past Surgical History / Comment(s): colon resection w/ colostomy reversal 2018 Past Anesthesia/Blood Transfusion Reactions: No Reported Reaction Past Psychological History: No Psychological Hx Reported Smoking Status: Former smoker Past Alcohol Use History: Occasional Past Drug Use History: None Reported Plan - Discharge Summary New Discharge Prescriptions: New metFORMIN HCL [Glucophage] 500 mg PO BID #60 tab Aspirin 81 mg PO DAILY #1 tab Atorvastatin [Lipitor] 40 mg PO HS #30 tab Changed Lisinopril-Hctz 20-25 mg [Zestoretic 20-25] 1 tab PO HS PRN #30 tab PRN Reason: high BP Discharge Medication List Aspirin 81 mg PO DAILY #1 tab 11/18/23 [Rx] Atorvastatin [Lipitor] 40 mg PO HS #30 tab 11/18/23 [Rx] Lisinopril-Hctz 20-25 mg [Zestoretic 20-25] 1 tab PO HS PRN #30 tab 11/18/23 [Rx] metFORMIN HCL [Glucophage] 500 mg PO BID #60 tab 11/18/23 [Rx] Follow up Appointment(s)/Referral(s): Raul Blackman DO [STAFF PHYSICIAN] - 1 Week (Call office in am and make a follow up appointment for a Site Check with Dr. Blackman in one week) Isac Gong MD [Primary Care Provider] - 1-2 days (See primary doctor about Diabetes Management) Patient Instructions/Handouts: After Radial Heart Catheterization (GEN) Activity/Diet/Wound Care/Special Instructions: DO NOT SUBMERGE RIGHT WRIST IN WATER. NO SOAKS, TUBS, DISHES, ETC YOU MAY REMOVE DRESSING IN 24 HOURS NO FLEXING OR BENDING THE WRIST FOR 3 DAYs NO LIFTING, PULLING, PUSHING WITH RIGHT WRIST IF YOU NOTICE ANY BLEEDING OR SWELLING, APPLY PRESSURE AND GO TO THE NEAREST ER CALL OFFICE FOR FOLLOW UP APPOINTMENT IN ONE WEEK diabetic diet start metformin from 11/20/23 Accu-Chek daily a.m.-keep log
[2023-11-18] MEDS ORDERED: ATORVASTATIN 40 MG TAB PO SCH (21:00)
[2023-11-19] MEDS ORDERED: HEPARIN SODIUM,PORCINE (1 ML) 2,500 UNIT in SODIUM CHLORIDE 0.9% 250 ML IRRIGATION PRN (07:00)
[2023-11-19] MEDS ORDERED: HEPARIN SODIUM,PORCINE 10,000 UNIT in SODIUM CHLORIDE 0.9% 1,000 ML IRRIGATION PRN (07:00)
== END 2023-11-18 20:13 | disposition home or self-care (01) ==
LOC: EC 10:09 → 6NMEDSUR 14:05
PROVIDERS: ADMIT Hospitalist; ATTEND Hospitalist
DX: I20.0 Unstable angina (principal); E11.65 Type 2 diabetes mellitus with hyperglycemia; I10 Essential (primary) hypertension; K21.9 Gastro-esophageal reflux disease without esophagitis; F12.90 Cannabis use, unspecified, uncomplicated; F10.20 Alcohol dependence, uncomplicated; E66.01 Morbid (severe) obesity due to excess calories; Z68.41 Body mass index [BMI] 40.0-44.9, adult; Z87.891 Personal history of nicotine dependence; Z90.49 Acquired absence of other specified parts of digestive tract; Z79.82 Long term (current) use of aspirin; Z79.899 Other long term (current) drug therapy; Z82.49 Family history of ischemic heart disease and other diseases of the circulatory system
CPT/HCPCS: 36415; 71046; 80053; 80061; 83036; 83690; 83735; 83880; 84484; 85025; 85379; 85610; 85730; 93005; 93306; 93458; 94760; 96372; 99285